=== PATIENT | female | born 1970 | race African-American/Black ===

== ENCOUNTER 2016-09-05 11:45 | Emergency (ER) | payer SELFPAY ==
[2016-09-05] MEDS ORDERED: IBUPROFEN 800 MG TABLET PO ONE (12:52)
--- NOTE | 2016-09-05 12:53 | ER Document Report ---
ED Medical Screen (RME) - General Stated Complaint: SKIN PROBLEM Time seen by provider: 12:49 Mode of Arrival: Ambulatory Information source: Patient Notes: 46-year-old female with a history of lupus is complaining of back and neck and leg pain for 1 week. She was seen in the emergency room recently and was told that she needed a blood transfusion. She is also complaining of rash. It'll stable in triage. I have greeted and performed a rapid initial assessment of this patient. A comprehensive ED assessment, evaluation of the patient, analysis of test results , and completion of the medical decision making process will be contacted by additional ED providers. TRAVEL OUTSIDE OF THE [place] IN LAST 30 DAYS: No - Related Data Allergies/Adverse Reactions: No Known Allergies Allergy (Verified 09/05/16 12:28) Past Medical History - Past Medical History Cardiac Medical History: Reports: Hx Hypertension Past Surgical History: Reports: Hx Section - Immunizations Immunizations up to date: No Hx Diphtheria, Pertussis, Tetanus Vaccination: Yes Physical Exam - Vital signs Vitals: Temp Pulse Resp BP Pulse Ox 98.4 F 80 16 146/82 H 99 09/05/16 11:49 09/05/16 11:49 09/05/16 11:49 09/05/16 11:49 09/05/16 11:49 Course - Vital Signs Vital signs: Temp Pulse Resp BP Pulse Ox 98.4 F 80 16 146/82 H 99 09/05/16 11:49 09/05/16 11:49 09/05/16 11:49 09/05/16 11:49 09/05/16 11:49
[2016-09-05 13:21] LABS: HEMOGLOBIN 9.5 g/dL (12.0-15.5); HGB HCT DIFFERENCE -2.5; MEAN CORPUSCULAR HEMOGLOBIN 20.5 pg (27.0-33.4); MEAN CORPUSCULAR HGB CONC 30.7 g/dL (32.0-36.0); MEAN CORPUSCULAR VOLUME 67 fl (80-97); RED BLOOD COUNT 4.66 10^6/uL (3.72-5.28); RED CELL DISTRIBUTION WIDTH 21.5 % (11.5-14.0); WHITE BLOOD COUNT 5.6 10^3/uL (4.0-10.5)
[2016-09-05 13:26] LABS: ALANINE AMINOTRANSFERASE 25 U/L (9-52); ALBUMIN 4.3 g/dL (3.5-5.0); ALKALINE PHOSPHATASE 69 U/L (38-126); ANION GAP 10 (5-19); ASPARTATE AMINO TRANSFERASE 20 U/L (14-36); BILIRUBIN,TOTAL 0.5 mg/dL (0.2-1.3); BLOOD UREA NITROGEN 10 mg/dL (7-20); CALCIUM 9.3 mg/dL (8.4-10.2); CARBON DIOXIDE 23 mmol/L (22-30); CHLORIDE 108 mmol/L (98-107); CREATININE RESULT 0.77 mg/dL (0.52-1.25); GLUCOSE 95 mg/dL (75-110); POTASSIUM 4.5 mmol/L (3.6-5.0); SODIUM 140.6 mmol/L (137-145); TOTAL PROTEIN 7.8 g/dL (6.3-8.2)
[2016-09-05 13:35] LABS: BAND NEUTROPHILS % (MANUAL) 1 % (3-5); BASOPHILS % (MANUAL) 0 % (0-2); EOSINOPHILS % (MANUAL) 2 % (0-6); LYMPHOCYTES % (MANUAL) 25 % (13-45); TOTAL CELLS COUNTED 100
[2016-09-05 13:37] LABS: HYPOCHROMASIA 1+; POLYCHROMASIA SLIGHT; TARGET CELLS SLIGHT
[2016-09-05 13:38] LABS: ANISOCYTOSIS 3+; POIKILOCYTOSIS SLIGHT
[2016-09-05 13:42] LABS: APPEARANCE,URINE SLIGHTLY-CLOUDY; BILIRUBIN,URINE NEGATIVE (NEGATIVE); GLUCOSE, URINE 50 mg/dL (NEGATIVE); KETONES,URINE NEGATIVE (NEGATIVE); LEUKOCYTE ESTERASE,URINE NEGATIVE (NEGATIVE); NITRITE,URINE NEGATIVE (NEGATIVE); PROTEIN,URINE 100 mg/dL (NEGATIVE); URINE SPECIFIC GRAVITY 1.021; UROBILINOGEN,URINE NEGATIVE mg/dL (<2.0)
--- NOTE | 2016-09-05 14:54 | ER Document Report ---
ED General - General Chief Complaint: Back Pain Stated Complaint: SKIN PROBLEM Time seen by provider: 14:48 Mode of Arrival: Ambulatory Information source: Patient Notes: 46-year-old female complains about a one-week history of bilateral low back pain rating down both legs. She reports history of lupus but is on no medication regularly for due to lack of insurance. The patient says that she is scattered dark colored rash over her arms legs and trunk for which she has been using triamcinolone 1% cream with good results but ran out of that. Family whether reports that she is intermittently had problems with her vision getting blurry the patient denies at this examiner. She denies fever, chills, nausea, vomiting, cough, shortness of breath, dysuria, chest pain, abdominal pain, or upper back pain. She denies vaginal bleeding or discharge. She reports being in normal state of health otherwise recently doesn't recall any specific injury to her back. Patient also reported to triage that she thought she was supposed to have a blood transfusion on her last admission but this was never completed and she presents with concern that she may need one now. Physical Exam: General: Alert, appears well. HEENT: Normocephalic. Atraumatic. PERRLA. Extraocular movements intact. Oropharynx clear. Neck: Supple. Non-tender. Good range of motion without discomfort Respiratory: No respiratory distress. Clear and equal breath sounds bilaterally. Cardiovascular: Regular rate and rhythm. Abdominal: Normal Inspection. Soft, non-tender. No distension. Normal Bowel Sounds. Back: Mildly tender in the lower lumbar region bilaterally and in the midline No deformity or step off. Extremities: Moves all four extremities. Upper extremities: Normal inspection. Non-tender. Normal color. Normal ROM. Normal temperature. Lower extremities: Normal inspection. Non-tender. No edema. Normal color. Normal ROM. Normal temperature. No pain with straight leg raise bilaterally Neurological: Speech clear mentation normal. Psychological: Normal affect. Normal Mood. Skin: Warm. Dry. Normal color. Scattered areas of darkish discoloration with scaling to abdomen and back which corresponded patient's complaint of rash that she says is improved with triamcinolone TRAVEL OUTSIDE OF THE [place] IN LAST 30 DAYS: No - Related Data Allergies/Adverse Reactions: No Known Allergies Allergy (Verified 09/05/16 12:28) Past Medical History - General Information source: Patient - Social History Smoking Status: Current Every Day Smoker Family History: Hypertension, Malignancy, Other - Lupus Patient has suicidal ideation: No Patient has homicidal ideation: No - Past Medical History Cardiac Medical History: Reports: Hx Hypertension Renal/ Medical History: Denies: Hx Peritoneal Dialysis Musculoskeltal Medical History: Reports Other - Lupus Past Surgical History: Reports: Hx Section - Immunizations Immunizations up to date: No Hx Diphtheria, Pertussis, Tetanus Vaccination: Yes Review of Systems - Review of Systems Constitutional: See HPI EENT: denies: Ear pain, Throat pain Cardiovascular: denies: Chest pain Respiratory: denies: Cough, Short of breath Gastrointestinal: denies: Abdominal pain, Nausea, Vomiting Genitourinary: See HPI Female Genitourinary: denies: Musculoskeletal: Back pain Skin: Rash Hematologic/Lymphatic: denies: Swollen glands Neurological/Psychological: denies: Weakness, Numbness Physical Exam - Vital signs Vitals: Temp Pulse Resp BP Pulse Ox 98.4 F 80 16 146/82 H 99 09/05/16 11:49 09/05/16 11:49 09/05/16 11:49 09/05/16 11:49 09/05/16 11:49 Course - Re-evaluation Re-evalutation: 09/05/16 14:52 Patient is reassured that her hemoglobin was slightly low is not low enough to warrant transfusion. I believe or back pain is due to UTI and she'll be treated with antibiotics for that. I'm unsure about the etiology of her rash but says it has responded triamcinolone 1% cream in the past we'll prescribe that. He reports she is not under any local care for lupus due to lack of insurance but states that she is working on that and will brighter with referral to community clinic in the interim - Vital Signs Vital signs: Temp Pulse Resp BP Pulse Ox 98.4 F 80 16 146/82 H 99 09/05/16 11:49 09/05/16 11:49 09/05/16 11:49 09/05/16 11:49 09/05/16 11:49 - Laboratory Result Diagrams: 09/05/16 12:59 09/05/16 12:59 Laboratory results interpreted by me: 09/05/16 09/05/16 09/05/16 12:59 12:59 12:59 Hgb 9.5 L Hct 31.0 L MCV 67 L MCH 20.5 L MCHC 30.7 L RDW 21.5 H Band Neutrophils % 1 L Chloride 108 H Urine Protein 100 H Urine Glucose (UA) 50 H Urine Blood LARGE H 09/05/16 14:53 Discharge - Discharge Clinical Impression: UTI (urinary tract infection) Qualifiers: Urinary tract infection type: site unspecified Hematuria presence: with hematuria Qualified Code(s): N39.0 - Urinary tract infection, site not specified Lupus Qualifiers: Systemic lupus erythematosus type: unspecified Systemic lupus erythematosus organ involvement: unspecified Qualified Code(s): M32.9 - Systemic lupus erythematosus, unspecified Condition: Stable Disposition: HOME, SELF-CARE Instructions: Urinary Tract Infection ([facility]) Prescriptions: Cephalexin Monohydrate [Keflex 500 mg Capsule] 500 mg PO BID #20 capsule Tramadol HCl 50 mg PO BID #10 tablet Triamcinolone Acetonide 15 gm TP DAILY #1 cream.gm. Referrals: EVA SANCHEZ MD [[facility]] - Follow up as needed
[2016-09-05 15:10] VITALS: BP 142/78
== END 2016-09-05 15:07 | disposition home or self-care (01) ==
LOC: ER 11:45
DX: N39.0 Urinary tract infection, site not specified (principal); R31.9 Hematuria, unspecified; M32.9 Systemic lupus erythematosus, unspecified; M54.5 Low back pain; R21 Rash and other nonspecific skin eruption; D64.9 Anemia, unspecified; I10 Essential (primary) hypertension; F17.200 Nicotine dependence, unspecified, uncomplicated
CPT/HCPCS: 36415; 80053; 81001; 84703; 85025; 87086; 99283

== ENCOUNTER 2017-01-12 04:20 | Emergency (ER) | payer SELFPAY ==
[2017-01-12 04:32] VITALS: BP 141/82
--- NOTE | 2017-01-12 05:08 | ER Document Report ---
HPI - HPI Pain Level: 4 Notes: Patient is a 46yo female who presents with left ear pain x3 days. No tinnitus. Pt states that she did have discharge initially, but has not had any discharge in the last 1-2 days. She has tried triamcinolone cream with minimal relief. The pain radiates down into her left neck. Pt states that she hears an "echo" from that left side. She is still eating and drinking, but does have a dec appetite due to pain. Pt states that she did develop a mild LILLY bc of the pain. No recent swimming or submersion in water. Denies any fever, nasal samantha/ discharge, sore throat, dysphagia, cp, palp, syncope, cough, wheeze, sob, dyspnea, abd pain, n/v/d, dysuria. - ROS Notes: REVIEW OF SYSTEMS: CONSTITUTIONAL : Denies fever, chills, or sweats. Denies recent illness. EENT: see hpi CARDIOVASCULAR: Denies chest pain. Denies palpitations or racing or irregular heart beat. Denies ankle edema. RESPIRATORY: Denies cough, cold, or chest congestion. Denies shortness of breath, difficulty breathing, or wheezing. GASTROINTESTINAL: Denies abdominal pain or distention. Denies nausea, vomiting , or diarrhea. Denies blood in vomitus, stools, or per rectum. Denies black, tarry stools. Denies constipation. GENITOURINARY: Denies difficulty urinating, painful urination, burning, frequency, blood in urine, or discharge. FEMALE GENITOURINARY: Denies vaginal bleeding, heavy or abnormal periods, irregular periods. Denies vaginal discharge or odor. MUSCULOSKELETAL: Denies back or neck pain or stiffness. Denies joint pain or swelling. SKIN: Denies rash, lesions or sores. NEUROLOGICAL: Denies confusion or altered mental status. Denies passing out or loss of consciousness. Denies dizziness or lightheadedness. Denies weakness or paralysis or loss of use of either side. Denies problems with gait or speech. Denies sensory loss, numbness, or tingling. Denies seizures. ALL OTHER SYSTEMS REVIEWED AND NEGATIVE. Dictation was performed using [employer] voice recognition software - REPRODUCTIVE LMP: 12-10-16 Reproductive: DENIES: : - DERM Skin Color: Normal Past Medical History - Social History Smoking Status: Unknown if Ever Smoked Family History: Hypertension, Malignancy, Other - Lupus Patient has suicidal ideation: No Patient has homicidal ideation: No - Past Medical History Cardiac Medical History: Reports: Hx Hypertension Renal/ Medical History: Denies: Hx Peritoneal Dialysis Past Surgical History: Reports: Hx Section - Immunizations Immunizations up to date: No Hx Diphtheria, Pertussis, Tetanus Vaccination: Yes Vertical Provider Document - CONSTITUTIONAL Notes: PHYSICAL EXAMINATION: GENERAL: Well-appearing, well-nourished and in no acute distress. HEAD: Atraumatic, normocephalic. EYES: Pupils equal round and reactive to light, extraocular movements intact, sclera anicteric, conjunctiva are normal. ENT: EAC swollen to left with mild erythema, + tenderness. TM not visualized. Rt EAC/TM unremarkable. Nares patent and without discharge. oropharynx clear without exudates. No tonsilar hypertrophy or erythema. Moist mucous membranes. No sinus tenderness. NECK: Normal range of motion, supple without lymphadenopathy. No rigidity/ meningismus. LUNGS: Breath sounds clear to auscultation bilaterally and equal. No wheezes rales or rhonchi. HEART: Regular rate and rhythm without murmurs, rubs, gallops. Extremities: No cyanosis, clubbing, or edema b/l. Peripheral pulses 2+. Capillary refill less than 3 seconds. NEUROLOGICAL: Cranial nerves grossly intact. Normal speech, normal gait. Normal sensory, motor exams PSYCH: Normal mood, normal affect. SKIN: Warm, Dry, normal turgor. + mild dry maculopapular rash to the neck ( reported chronic issue per patient). Non-tender, no d/c or streaks. - INFECTION CONTROL TRAVEL OUTSIDE OF THE [place] IN LAST 30 DAYS: No - RESPIRATORY O2 Sat by Pulse Oximetry: 99 Course - Re-evaluation Re-evalutation: 01/12/17 05:11 Patient is an afebrile, well-hydrated, 46yo female who presents with left EAC OE. Ciprodex drops with wick placement performed today. Toradol 30mg given IM today for pain. Vitals stable. PE otherwise unremarkable. Pt noted improvement in her pain and headache with the toradol and ciprodex. Conservative measures otherwise. Recheck with PCM in 2-3 days. Consider consult with ENT as well. Return to the ED with any worsening symptoms. Pt in agreement. I will refill her triamcinolone cream for her rash (was last filled by provider here in the ED). - Vital Signs Vital signs: Temp Pulse Resp BP Pulse Ox 98.5 F 89 18 141/82 H 99 01/12/17 04:28 01/12/17 04:28 01/12/17 04:28 01/12/17 04:28 01/12/17 04:28 Discharge - Discharge Clinical Impression: Otitis externa Qualifiers: Otitis externa type: unspecified type Chronicity: acute Laterality: left Qualified Code(s): H60.502 - Unspecified acute noninfective otitis externa, left ear Condition: Stable Disposition: HOME, SELF-CARE Instructions: Acetaminophen, Using Ear Drops with a Wick ([facility]), Otitis Externa ([facility]) Additional Instructions: Use drops as directed Keep ears clean Tylenol/ibuprofen as needed for discomfort Maintain fluid intake Avoid use of q-tips inside the ear canal Recheck with PCM in 2-3 days Consider consult with ENT for ongoing/worsening symptoms as well Return to the ED with development of fever, worsening headache, chest pain, shortness of breath, abdominal pain, or other worsening symptom(s). Otitis Externa You have otitis externa -- an infection of the outer ear canal. This can be very painful. It's sometimes called "swimmer's ear," because it often occurs after prolonged water exposure. Many things, such as earwax and dirt in the ear, can contribute to it. The usual treatment is antibiotic/antiinflammatory ear drops. Occasionally , a wick will be placed in the ear to draw in the medicine. If the infection is severe, an oral antibiotic may be prescribed. Pain medication is often needed. Avoid getting water in the ear. Outer ear infections often take longer to heal than you might expect. Some tenderness and ache in the ear may persist for about two weeks. See your physician if you fail to improve as expected. Call the doctor at once if you develop fever, increasing swelling (particularly if it makes your ear "poke out"), severe headache, stiff neck, or decreased hearing. Prescriptions: Triamcinolone Acetonide 15 gm TP BID PRN #15 cream.gm. PRN Reason: Forms: Elevated Blood Pressure
[2017-01-12] MEDS ORDERED: KETOROLAC TROMETHAMINE INJ/PF 30 MG/1 ML SDV IM ONE (05:14)
[2017-01-12] MEDS ORDERED: CIPROFLOXACIN HCL/DEXAMETH OTIC DROP 7.5 ML AS ONE (05:17)
== END 2017-01-12 06:04 | disposition home or self-care (01) ==
LOC: ER 04:20
DX: H60.502 Unspecified acute noninfective otitis externa, left ear (principal); H92.02 Otalgia, left ear; R21 Rash and other nonspecific skin eruption; R63.0 Anorexia; R51 Headache; I10 Essential (primary) hypertension
CPT/HCPCS: 99282; 96372; J1885; J3490

== ENCOUNTER 2017-02-05 14:08 | Emergency (ER) | payer SELFPAY ==
[2017-02-05] MEDS ORDERED: KETOROLAC TROMETHAMINE 60 MG/2 ML SDV IM ONE (14:45)
[2017-02-05] MEDS ORDERED: DEXAMETHASONE SOD PHOS INJ 10 MG/1 ML VIAL IV ONE (14:45)
--- NOTE | 2017-02-05 14:50 | ER Document Report ---
HPI - HPI Patient complains to provider of: rash and back pain Pain Level: 4 Context: 46 yo female with hx/o Lupus, c/o burning pruritic rash to face x 1 day and low back pain x 2 days. denies new contacts. denies urinary symptoms, fever, radiculopathy, paresthesia. Associated Symptoms: None Exacerbated by: Denies Relieved by: Denies Similar symptoms previously: No - ROS Systems Reviewed and Negative: Yes All other systems reviewed and negative - CARDIOVASCULAR Cardiovascular: DENIES: Chest pain - REPRODUCTIVE Reproductive: DENIES: : - DERM Skin Color: Normal Past Medical History - General Information source: Patient - Social History Smoking Status: Current Every Day Smoker Chew tobacco use (# tins/day): No Frequency of alcohol use: None Drug Abuse: None Lives with: Family Family History: Hypertension, Malignancy, Other - Lupus Patient has suicidal ideation: No Patient has homicidal ideation: No - Past Medical History Cardiac Medical History: Reports: Hx Hypertension Renal/ Medical History: Denies: Hx Peritoneal Dialysis Past Surgical History: Reports: Hx Section - Immunizations Immunizations up to date: No Hx Diphtheria, Pertussis, Tetanus Vaccination: Yes Vertical Provider Document - CONSTITUTIONAL Agree With Documented VS: Yes Exam Limitations: No Limitations General Appearance: WD/WN, No Apparent Distress - INFECTION CONTROL TRAVEL OUTSIDE OF THE [place] IN LAST 30 DAYS: No - HEENT HEENT: Atraumatic, PERRLA Notes: no visible facial rash, but patient says it [place]. - NECK Neck: Normal Inspection, Supple - RESPIRATORY Respiratory: Breath Sounds Normal O2 Sat by Pulse Oximetry: 100 - CARDIOVASCULAR Cardiovascular: Regular Rate, Regular Rhythm - BACK Back: Abnormal Inspection - no vertebral tenderness. + lumbar paraspinal tenderness. no SI pain Course - Re-evaluation Re-evalutation: 02/05/17 15:08 unclear etiolgy of facial burning and rash. I do not appreciate an actual rash on patient's face. no angioedema, no airway compromise. her back pain is c/w myofascial pain. no suspicion for cauda equina or epidural abscess. pt medicated with toradol + decadron for symptom relief. pt is stable for discharge and follow up with primary care. pt is agreeable with plan - Vital Signs Vital signs: Temp Pulse Resp BP Pulse Ox 98.0 F 83 18 162/79 H 100 02/05/17 14:13 07/16/17 14:13 02/05/17 14:13 02/05/17 14:13 02/05/17 14:13 Discharge - Discharge Condition: Stable Disposition: HOME, SELF-CARE Instructions: Low Back Pain ([facility]), Toradol Injection ([facility]), Topical Steroid Cream or Ointment ([facility]), Steroid Medication Injection Additional Instructions: Unclear etiology of your facial rash. You may take over the counter Benadryl for itch Take medications as prescribed. Remember to use steroid cream sparingly and for no more than 7 consecutive days follow up with primary care if symptoms persist return to ER for any worsening Prescriptions: Triamcinolone Acetonide [Aristocort 0.1% Ointment] 1 applic TP BID #30 gm Forms: Elevated Blood Pressure
[2017-02-05 15:45] VITALS: BP 155/72
== END 2017-02-05 15:43 | disposition home or self-care (01) ==
LOC: ER 14:08
DX: R21 Rash and other nonspecific skin eruption (principal); M54.9 Dorsalgia, unspecified; F17.200 Nicotine dependence, unspecified, uncomplicated
CPT/HCPCS: 99283; 96372; 96374; J1885; J1100

== ENCOUNTER 2017-09-01 07:06 | Emergency (ER) | payer SELFPAY ==
[2017-09-01] MEDS ORDERED: ACETAMINOPHEN 325 MG TABLET PO ONE (08:30)
--- NOTE | 2017-09-01 08:32 | ER Document Report ---
ED Medical Screen (RME) - General Chief Complaint: Foot Injury Stated Complaint: FOOT INJURY Time Seen by Provider: 09/01/17 08:29 Notes: Patient is a 47-year-old female presents emergency department with a chief complaint of left foot wound. Patient states that she dropped ashtray on it about a month ago and had a small superficial laceration that is just progressed now involving the whole top of her foot with pain with walking. She admits to history of diabetes, hypertension, anemia I have greeted and performed a rapid initial assessment of this patient. A comprehensive ED assessment and evaluation of the patient, analysis of test results and completion of the medical decision making process will be conducted by additional ED providers. TRAVEL OUTSIDE OF THE [place] IN LAST 30 DAYS: No - Related Data Allergies/Adverse Reactions: No Known Allergies Allergy (Verified 02/05/17 14:12) Past Medical History - Past Medical History Cardiac Medical History: Reports: Hx Hypertension Renal/ Medical History: Denies: Hx Peritoneal Dialysis Past Surgical History: Reports: Hx Section - Immunizations Immunizations up to date: No Hx Diphtheria, Pertussis, Tetanus Vaccination: Yes Physical Exam - Vital signs Vitals: Temp Pulse Resp BP Pulse Ox 99 F 85 18 120/69 100 09/01/17 07:18 09/01/17 07:18 09/01/17 07:18 09/01/17 07:18 09/01/17 07:18 - Notes Notes: PHYSICAL EXAM GENERAL: Alert, interacts well. EXTREMITIES: Left foot volar surface with overlying abraision with drainage and pain to palpation of the dorsal surface of the foot. Pain with weight bearing. No cyanosis. NEUROLOGICAL: Alert and oriented x4. Normal speech. PSYCH: Normal affect, normal mood. Course - Vital Signs Vital signs: Temp Pulse Resp BP Pulse Ox 99 F 85 18 120/69 100 09/01/17 07:18 09/01/17 07:18 09/01/17 07:18 09/01/17 07:18 09/01/17 07:18
[2017-09-01 08:49] LABS: ABSOLUTE EOSINOPHILS # (AUTO) 0.1 10^3/uL (0.0-0.6); ABSOLUTE LYMPHOCYTES (AUTO) 2.2 10^3/uL (0.5-4.7); ABSOLUTE MONOCYTES (AUTO) 0.8 10^3/uL (0.1-1.4); ABSOLUTE NEUT (AUTO) 4.5 10^3/uL (1.7-8.2); BASOPHILS % (AUTO) 0.6 % (0-2); EOSINOPHILS % (AUTO) 1.5 % (0-6); HEMATOCRIT 32.9 % (36.0-47.0); HEMOGLOBIN 10.4 g/dL (12.0-15.5); LYMPHOCYTES % (AUTO) 29.4 % (13-45); MEAN CORPUSCULAR HEMOGLOBIN 23.1 pg (27.0-33.4); MEAN CORPUSCULAR HGB CONC 31.7 g/dL (32.0-36.0); MEAN CORPUSCULAR VOLUME 73 fl (80-97); MONOCYTES % (AUTO) 9.9 % (3-13); PLATELET COUNT 383 10^3/uL (150-450); RED BLOOD COUNT 4.51 10^6/uL (3.72-5.28); RED CELL DISTRIBUTION WIDTH 20.4 % (11.5-14.0); SEGMENTED NEUTROPHILS % (AUTO) 58.6 % (42-78); TOTAL CELLS COUNTED % (AUTO) 100 %; WHITE BLOOD COUNT 7.6 10^3/uL (4.0-10.5)
[2017-09-01 09:14] LABS: ANION GAP 8 (5-19); BLOOD UREA NITROGEN 9 mg/dL (7-20); CALCIUM 9.2 mg/dL (8.4-10.2); CARBON DIOXIDE 25 mmol/L (22-30); CHLORIDE 107 mmol/L (98-107); GLUCOSE 103 mg/dL (75-110); POTASSIUM 4.4 mmol/L (3.6-5.0); SODIUM 139.9 mmol/L (137-145)
--- NOTE | 2017-09-01 09:20 | RADIOLOGY REPORT (SQ) ---
EXAM DESCRIPTION: FOOT LEFT COMPLETE COMPLETED DATE/TIME: 09/01/2017 8:59 am REASON FOR STUDY: open wound x1 mth w/ pain swelling, r/o osteo COMPARISON: None. NUMBER OF VIEWS: Three views. TECHNIQUE: AP, lateral and oblique radiographic images acquired of the left foot. LIMITATIONS: None. FINDINGS: MINERALIZATION: Normal. BONES: No acute fracture or dislocation. No worrisome bone lesions. No periostitis or aggressive jarek ny demineralization worrisome for osteomyelitis at the 1st metatarsal or great toe proximal phalanx. JOINTS: No effusions. SOFT TISSUES: Medial left 1st metatarsophalangeal joint region soft tissue swelling. No foreign body . OTHER: No other significant finding. IMPRESSION: Soft tissue swelling at the 1st metatarsophalangeal joint region without underlying bony changes to suggest osteomyelitis or septic arthritis TECHNICAL DOCUMENTATION: JOB ID: [id number] [employer]- All Rights Reserved
[2017-09-01] MEDS ORDERED: CEPHALEXIN 500 MG CAPSULE PO ONE (10:01)
[2017-09-01] MEDS ORDERED: TRAMADOL HCL 50 MG TABLET PO ONE (10:01)
[2017-09-01] MEDS ORDERED: SULFAMETHOXAZOLE/TRIMETHOPRIM 800-160 MG TABLET PO ONE ×2 (10:01→10:03)
--- NOTE | 2017-09-01 10:04 | ER Document Report ---
HPI - HPI Pain Level: 5 Context: Patient is a 47-year-old female presents emergency department with a chief complaint of left foot wound. Patient states that she dropped ashtray on it about a month ago and had a small superficial laceration that is just progressed now involving the top of her foot with pain with walking. She admits to history of diabetes, hypertension, anemia. No primary care - REPRODUCTIVE Reproductive: DENIES: : - DERM Skin Color: Erythema Past Medical History - Social History Smoking Status: Current Every Day Smoker Chew tobacco use (# tins/day): No Frequency of alcohol use: None Drug Abuse: None Family History: Hypertension, Malignancy, Other - Lupus Patient has suicidal ideation: No Patient has homicidal ideation: No - Past Medical History Cardiac Medical History: Reports: Hx Hypertension Renal/ Medical History: Denies: Hx Peritoneal Dialysis Past Surgical History: Reports: Hx Section - Immunizations Immunizations up to date: No Hx Diphtheria, Pertussis, Tetanus Vaccination: Yes Vertical Provider Document - CONSTITUTIONAL Agree With Documented VS: Yes Notes: PHYSICAL EXAM GENERAL: Alert, interacts well. LUNGS: Clear to auscultation bilaterally, no wheezes, rales, or rhonchi. No respiratory distress. HEART: Regular rate and rhythm. No murmurs, gallops, or rubs. EXTREMITIES: Moves all 4 extremities spontaneously. No edema, radial and dorsalis pedis pulses 2/4 bilaterally. No cyanosis. NEUROLOGICAL: Alert and oriented x4. Normal speech. PSYCH: Normal affect, normal mood. SKIN: Warm, dry, normal turgor. Skin breakdown noted on the top of the left foot without any purulent drainage, fluctuance or induration, swelling, edema, streaking. - INFECTION CONTROL TRAVEL OUTSIDE OF THE [place] IN LAST 30 DAYS: No - RESPIRATORY O2 Sat by Pulse Oximetry: 100 Course - Re-evaluation Re-evalutation: 09/01/17 09:59 Patient is a 47-year-old female who is hemodynamically stable, no acute distress and afebrile. CBC without evidence of leukocytosis or anemia requiring products. No evidence of electrolyte abnormalities, acute renal failure. X-ray with evidence of soft tissue swelling without evidence of osteomyelitis. No evidence of a septic joint, gout flare, dislocation, or fracture on exam and imaging. At this time I do not see any need to admit the patient for IV antibiotics or surgical evaluation given that there is no evidence of underlying osteomyelitis or cellulitis indicating sepsis. Patient will be discharged home on antibiotics and minimal pain medication with instruction to follow-up with the wound clinic and primary care. Patient and are agreeable with plan and stable for discharge home. - Vital Signs Vital signs: Temp Pulse Resp BP Pulse Ox 99 F 85 18 120/69 100 09/01/17 07:18 09/01/17 07:18 09/01/17 07:18 09/01/17 07:18 09/01/17 07:18 - Laboratory Result Diagrams: 09/01/17 08:35 09/01/17 08:35 Laboratory results interpreted by me: 09/01/17 08:35 Hgb 10.4 L Hct 32.9 L MCV 73 L MCH 23.1 L MCHC 31.7 L RDW 20.4 H - Diagnostic Test Radiology reviewed: Image reviewed, Reports reviewed Discharge - Discharge Clinical Impression: Cellulitis Qualifiers: Site of cellulitis: extremity Site of cellulitis of extremity: lower extremity Laterality: left Qualified Code(s): L03.116 - Cellulitis of left lower limb Condition: Good Disposition: HOME, SELF-CARE Additional Instructions: Please be sure to follow-up with Department of Social Security today to establish a Medicaid. Please follow-up with the wound clinic next week. Please return to the emergency department with any worsening redness, swelling, streaking up the leg, fevers/chills or any symptoms that are worrisome to you. CELLULITIS: You have an infection of your skin and underlying soft tissues called cellulitis. This is due to bacteria, which can enter through any break in the skin, or even through an irritated hair follicle. Untreated, cellulitis will usually worsen. Antibiotics are required. Usually, warm packs or warm soaks, and elevation of the infected area are recommended. You should start getting better within 24 to 36 hours. Most infections respond quickly to the right medication. Follow-up care is important, however, to check for abscess (boil) formation, unsuspected foreign body, or resistant infection. If you develop fever, chills, or if the area of infection is becoming rapidly more swollen or painful, call the doctor at once. ANTIBIOTIC THERAPY: You have been given an antibiotic prescription. It's important that you take all the medication, unless instructed otherwise by your physician. Failure to complete the entire course can result in relapse of your condition. Common side effects of antibiotics include nausea, intestinal cramping, or diarrhea. Women may develop vaginal yeast infections, and babies can get yeast (thrush) in the mouth following the use of antibiotics. Contact your physician if you develop significant side effects from this medication. Allergy to this antibiotic can result in hives, wheezing, faintness, or itching. If symptoms of allergy occur, stop the medication and call the doctor. TRIMETHOPRIM-SULFA: You have been given a prescription for trimethoprim-sulfa (TMS, Septra, Bactrim). This is a combination antibiotic of the sulfa class, often used for urinary tract infections, middle ear infections, bronchitis, shigella intestinal infection, and Pneumocystis pneumonia. TMS is usually well-tolerated. Occasional side effects include nausea and decreased appetite. Septra is not recommended for infants less than two months of age. Do not take this medication if you have experienced severe side effects or allergy to sulfa medicine. You should stop this medicine at once and contact your physician if you develop any rash, joint pain, shortness of breath, bruising, or jaundice ( yellow color in the skin), or if you develop any other new or unusual symptoms. ORAL NARCOTIC MEDICATION: You have been given a prescription for pain control. This medication is a narcotic. It's best taken with food, as nausea can result if taken on an empty stomach. Don't operate machinery or drive within six hours of taking this medication. Do not combine this medicine with alcohol, or with any medication which can cause sedation (such as cold tablets or sleeping pills) unless you get permission from the physician. Narcotics tend to cause constipation. If possible, drink plenty of fluids and eat a diet high in fiber and fruits. Please be aware that prescription narcotics also have the potential for abuse. People become addicted to these medications because of the general sense of wellbeing that they induce. This feeling along with a significant reduction in tension, anxiety, and aggression provides a stimulating seductive quality to these drugs. Once your pain is under control, we encourage you to discard your unused narcotics. FOLLOW-UP CARE: If you have been referred to a physician for follow-up care, call the physician s office for an appointment as you were instructed or within the next two days. If you experience worsening or a significant change in your symptoms, notify the physician immediately or return to the Emergency Department at any time for re-evaluation. Prescriptions: Tramadol HCl 50 mg PO Q8HP PRN #10 tablet PRN Reason: Cephalexin Monohydrate [Keflex 500 mg Capsule] 500 mg PO QID 7 Days capsule Sulfamethoxazole/Trimethoprim [Bactrim Ds Tablet] 2 each PO BID 7 Days tablet Referrals: Wound Care [Provider Group] - Follow up in 3-5 days KEN HOLGUIN DO [NO LOCAL MD] - Follow up in 3-5 days
[2017-09-01 10:22] VITALS: BP 115/71
== END 2017-09-01 10:23 | disposition home or self-care (01) ==
LOC: ER 07:06
DX: L03.116 Cellulitis of left lower limb (principal); S91.312A Laceration without foreign body, left foot, initial encounter; M79.672 Pain in left foot; W22.8XXA Striking against or struck by other objects, initial encounter; F17.200 Nicotine dependence, unspecified, uncomplicated
CPT/HCPCS: 36415; 80048; 82962; 85025; 99284

== ENCOUNTER 2017-09-04 16:11 | Emergency (ER) | payer SELFPAY | END 2017-09-04 16:50 | disposition left against medical advice (07) | LOC: ER 16:11 | DX: Z53.21 Procedure and treatment not carried out due to patient leaving prior to being seen by health care provider (principal) ==

== ENCOUNTER 2017-11-27 05:42 | Day surgery (SDC) | payer MEDICAID ==
[2017-11-21 10:54] LABS: HEMATOCRIT 33.1 % (36.0-47.0); HEMOGLOBIN 10.5 g/dL (12.0-15.5); MEAN CORPUSCULAR HEMOGLOBIN 23.3 pg (27.0-33.4); MEAN CORPUSCULAR HGB CONC 31.8 g/dL (32.0-36.0); MEAN CORPUSCULAR VOLUME 73 fl (80-97); PLATELET COUNT 419 10^3/uL (150-450); RED BLOOD COUNT 4.52 10^6/uL (3.72-5.28); RED CELL DISTRIBUTION WIDTH 20.7 % (11.5-14.0); WHITE BLOOD COUNT 7.6 10^3/uL (4.0-10.5)
[2017-11-21 10:59] LABS: AMORPHOUS SEDIMENT,URINE TRACE /HPF; APPEARANCE,URINE CLOUDY; BILIRUBIN,URINE NEGATIVE (NEGATIVE); COLOR,URINE YELLOW; GLUCOSE, URINE NEGATIVE (NEGATIVE); KETONES,URINE NEGATIVE (NEGATIVE); LEUKOCYTE ESTERASE,URINE MODERATE (NEGATIVE); NITRITE,URINE NEGATIVE (NEGATIVE); PROTEIN,URINE 30 mg/dL (NEGATIVE); URINE SPECIFIC GRAVITY 1.017; UROBILINOGEN,URINE NEGATIVE mg/dL (<2.0)
[2017-11-27] MEDS ORDERED: LIDOCAINE 2% INJ-PF (20 MG/ML) 10 ML AMPUL ONE (08:25)
[2017-11-27] MEDS ORDERED: FENTANYL CITRATE INJ/PF 100 MCG/2 ML AMPUL ONE (08:25)
[2017-11-27] MEDS ORDERED: ACETAMINOPHEN 100 ML IV ONE (08:26)
[2017-11-27] MEDS ORDERED: DEXAMETHASONE SOD PHOSPHATE INJ 4 MG/1 ML VIAL ONE (08:26)
[2017-11-27] MEDS ORDERED: ONDANSETRON HCL INJ/PF 4 MG/2 ML SDV ONE (08:26)
[2017-11-27] MEDS ORDERED: MIDAZOLAM 2 MG/2 ML INJ ONE (08:26)
[2017-11-27] MEDS ORDERED: PROPOFOL INJ 200 MG/20 ML VIAL IV ONE (08:26)
[2017-11-27] MEDS ORDERED: PROMETHAZINE HCL INJ 25 MG/1 ML VIAL IV PRN ×2 (09:10)
[2017-11-27] MEDS ORDERED: MORPHINE SULFATE 10 MG/ML INJ IV PRN (09:10)
[2017-11-27] MEDS ORDERED: MEPERIDINE HCL/PF INJ 25 MG/1 ML DISP.SYRIN IV PRN (09:10)
[2017-11-27] MEDS ORDERED: OXYCODONE-ACETAMINOPHEN 5-325 MG TABLET PO PRN ×4 (09:10→09:57)
[2017-11-27] MEDS ORDERED: FENTANYL CITRATE INJ/PF 100 MCG/2 ML AMPUL IV PRN ×3 (09:10)
[2017-11-27] MEDS ORDERED: DIPHENHYDRAMINE HCL 50 MG/ML VIAL IV PRN (09:10)
[2017-11-27] MEDS ORDERED: ONDANSETRON HCL INJ/PF 4 MG/2 ML SDV IV PRN (09:10)
--- NOTE | 2017-11-27 09:31 | Operative Report ---
Operative Report DATE OF SURGERY: 11/27/17 PREOPERATIVE DIAGNOSIS: Prolapsing uterine fibroid, heavy periods POSTOPERATIVE DIAGNOSIS: Same OPERATION: Myomectomy hysteroscopy Myosure, Novasure. SURGEON: MATILDE YOUSIF ANESTHESIA: GA TISSUE REMOVED OR ALTERED: Uterine contents COMPLICATIONS: None ESTIMATED BLOOD LOSS: 20 cc INTRAOPERATIVE FINDINGS: Fibroid prolapsing through the uterine cervix with a large stalk in the uterine cavity PROCEDURE: Patient was taken the OR and placed in supine position. General anesthesia was induced. She is placed in dorsolithotomy position using Nathaniel stirrups. Her perineum and vagina were prepared and draped in sterile fashion. A weighted speculum was placed in the vagina and the anterior lip cervix was grasped with a tenaculum. The fibroid could be seen prolapsing at the uterus. The stalk appeared thin so the fibroid was removed by grasping and twisting it. This was passed off the field. Next hysteroscopy was performed which showed the stalk of the fibroid attached into the fundus of the uterus. Otherwise the uterine cavity looked quite normal and measured 4-1/2 cm in length. The Myosure was then used to remove the remainder of the stalk. The NovaSure device was then inserted tested and fired without difficulty. Hysteroscopy at the end of the case showed a well ablated uterine cavity. At the end of the case all instruments were removed. She is placed back in supine position taken recovery in stable condition.
[2017-11-27] MEDS: FENTANYL CITRATE INJ/PF 100 MCG/2 ML AMPUL ONE ×2 (09:45→09:50)
[2017-11-27] MEDS ORDERED: RINGERS SOLUTION,LACTATED 1,000 ML IV PRN (09:53)
[2017-11-27] MEDS ORDERED: KETOROLAC TROMETHAMINE INJ/PF 30 MG/1 ML SDV IV PRN (09:54)
[2017-11-27] MEDS ORDERED: IBUPROFEN 800 MG TABLET PO PRN (09:55)
[2017-11-27] MEDS ORDERED: KETOROLAC TROMETHAMINE INJ/PF 30 MG/1 ML SDV ONE (10:01)
[2017-11-27 12:36] VITALS: BP 135/70
== END 2017-11-27 11:45 | disposition home or self-care (01) ==
LOC: OROUT 05:42
PROVIDERS: ATTEND Obstetrics & Gynecology
DX: N92.0 Excessive and frequent menstruation with regular cycle (principal); N81.9 Female genital prolapse, unspecified; D25.9 Leiomyoma of uterus, unspecified; I10 Essential (primary) hypertension; M32.9 Systemic lupus erythematosus, unspecified
CPT/HCPCS: 36415; 85027; 81025; 81001; 88305 ×2; 58563; 58561; J2250; J1100; J3010; J1885; J2405; J2704; J3490; J0131; 952

== ENCOUNTER → 2017-12-06 | Outpatient (CLI) | payer MEDICAID ==
[2017-12-06 13:18] LABS: HEMATOCRIT 29.8 % (36.0-47.0); HEMOGLOBIN 9.3 g/dL (12.0-15.5); MEAN CORPUSCULAR HEMOGLOBIN 22.7 pg (27.0-33.4); MEAN CORPUSCULAR HGB CONC 31.4 g/dL (32.0-36.0); MEAN CORPUSCULAR VOLUME 72 fl (80-97); PLATELET COUNT 329 10^3/uL (150-450); RED BLOOD COUNT 4.12 10^6/uL (3.72-5.28); RED CELL DISTRIBUTION WIDTH 20.1 % (11.5-14.0); WHITE BLOOD COUNT 8.5 10^3/uL (4.0-10.5)
[2017-12-06 13:22] LABS: APPEARANCE,URINE CLEAR; BILIRUBIN,URINE NEGATIVE (NEGATIVE); COLOR,URINE YELLOW; GLUCOSE, URINE NEGATIVE (NEGATIVE); KETONES,URINE NEGATIVE (NEGATIVE); LEUKOCYTE ESTERASE,URINE MODERATE (NEGATIVE); NITRITE,URINE NEGATIVE (NEGATIVE); PROTEIN,URINE 30 mg/dL (NEGATIVE); URINE SPECIFIC GRAVITY 1.017; UROBILINOGEN,URINE NEGATIVE mg/dL (<2.0)
--- NOTE | 2017-12-06 13:25 | RADIOLOGY REPORT (SQ) ---
EXAM DESCRIPTION: CHEST PA/LATERAL COMPLETED DATE/TIME: 12/06/2017 12:20 pm REASON FOR STUDY: COUGH VARIANT ASTHMA COMPARISON: 2016 CT chest and radiographs. TECHNIQUE: Frontal and lateral radiographic views of the chest acquired. NUMBER OF VIEWS: Two view. LIMITATIONS: None. FINDINGS: LUNGS AND PLEURA: No opacities, masses or pneumothorax. No pleural effusion. MEDIASTINUM AND HILAR STRUCTURES: No masses or contour abnormalities. HEART AND VASCULAR STRUCTURES: Heart normal size. No evidence for failure. BONES: No acute findings. HARDWARE: None in the chest. OTHER: No other significant finding. IMPRESSION: NO SIGNIFICANT RADIOGRAPHIC FINDING IN THE CHEST. TECHNICAL DOCUMENTATION: JOB ID: [id number] [employer]- All Rights Reserved Reading location - IP/workstation name: [email or web address]
[2017-12-06 13:42] LABS: ALANINE AMINOTRANSFERASE 19 U/L (9-52); ALBUMIN 3.4 g/dL (3.5-5.0); ALKALINE PHOSPHATASE 49 U/L (38-126); ANION GAP 9 (5-19); ASPARTATE AMINO TRANSFERASE 17 U/L (14-36); BILIRUBIN,DIRECT 0.2 mg/dL (0.0-0.4); BILIRUBIN,TOTAL 0.2 mg/dL (0.2-1.3); BLOOD UREA NITROGEN 9 mg/dL (7-20); CALCIUM 8.7 mg/dL (8.4-10.2); CARBON DIOXIDE 29 mmol/L (22-30); CHLORIDE 104 mmol/L (98-107); GLUCOSE 75 mg/dL (75-110); IRON(TIBC) 23.2 ug/dL (37-170); POTASSIUM 4.2 mmol/L (3.6-5.0); SODIUM 141.5 mmol/L (137-145); TOTAL PROTEIN 6.2 g/dL (6.3-8.2)
[2017-12-06 13:47] LABS: UR PRO/CREAT RATIO RESULT 0.2 mg/mg (0.0-0.2); URINE CREATININE 77.4 mg/dL (15-278); URINE PROTEIN 12.6 mg/dL (<12)
[2017-12-06 14:19] LABS: FERRITIN 5.42 ng/mL (6.2-137.0)
[2017-12-08 16:40] LABS: A/G RATIO. 1.3 (0.7-1.7); ALBUMIN 3 3.4 g/dL (2.9-4.4); ALPHA-1-GLOBULIN 0.2 g/dL (0.0-0.4); BETA GLOBULIN 1.1 g/dL (0.7-1.3); GAMMA GLOBULINS 0.9 g/dL (0.4-1.8); IMMUNOGLOBULIN A 244 mg/dL (87-352); IMMUNOGLOBULIN G 845 mg/dL (700-1600); IMMUNOGLOBULIN M 44 mg/dL (26-217); MONOCLONAL-SPIKE Not Observed g/dL (Not Observed); PROTEIN TOTAL SERUM 6.2 g/dL (6.0-8.5)
== END ==
LOC: OD 11:38
PROVIDERS: ATTEND Internal Medicine Nephrology
DX: J45.991 Cough variant asthma (principal); D64.9 Anemia, unspecified; R80.9 Proteinuria, unspecified; R07.0 Pain in throat
CPT/HCPCS: 36415; 71046; 80053; 81001; 82570; 82728; 83540; 83550; 84156; 84443; 85027; 86060; 86320; 87070; 87880

== ENCOUNTER 2017-12-29 23:28 | Emergency (ER) | payer MEDICAID ==
[2017-12-30] MEDS ORDERED: HALOPERIDOL LACTATE INJ 5 MG/1 ML VIAL IV ONE (00:01)
[2017-12-30] MEDS ORDERED: NORMAL SALINE 1000 ML 1,000 ML IV ONE (00:28)
[2017-12-30] MEDS ORDERED: KETOROLAC TROMETHAMINE INJ/PF 30 MG/1 ML SDV IV ONE (00:30)
[2017-12-30] MEDS ORDERED: DEXAMETHASONE SOD PHOS INJ 10 MG/1 ML VIAL IV ONE (00:30)
--- NOTE | 2017-12-30 00:30 | ER Document Report ---
ED General - General Chief Complaint: Headache Stated Complaint: HEAD ACHE Time Seen by Provider: 12/30/17 00:00 Notes: Patient is a 47-year-old female with a past medical history of lupus and hypertension who presents with a headache for the past 2 days. She describes this as a bitemporal, throbbing, aching pain that has gotten progressively worse since onset. She notes that lights, sounds activity worsen the pain. She has not tried anything for improvement of the pain. She has a history of headaches but is uncertain about whether or not she has had a similar headache in the past. She notes associated nausea and vomiting. She also notes associated blurred vision. No focal weakness, numbness, or altered mental status. She has not seen her primary doctor regarding today's concerns. TRAVEL OUTSIDE OF THE [place] IN LAST 30 DAYS: No - Related Data Allergies/Adverse Reactions: No Known Allergies Allergy (Verified 11/21/17 09:12) Past Medical History - General Information source: Patient - Social History Smoking Status: Never Smoker Frequency of alcohol use: None Drug Abuse: None Lives with: Family Family History: Hypertension, Malignancy, Other - Lupus - Past Medical History Cardiac Medical History: Reports: Hx Hypertension Denies: Hx Coronary Artery Disease, Hx Heart Attack Pulmonary Medical History: Denies: Hx Asthma, Hx Bronchitis, Hx COPD, Hx Pneumonia Neurological Medical History: Denies: Hx Cerebrovascular Accident, Hx Seizures Renal/ Medical History: Denies: Hx Peritoneal Dialysis Musculoskeltal Medical History: Denies Hx Arthritis Past Surgical History: Reports: Hx Section - Immunizations Immunizations up to date: No Hx Diphtheria, Pertussis, Tetanus Vaccination: Yes Review of Systems - Review of Systems Notes: Constitutional: Negative for fever. HENT: Negative for sore throat. Eyes: Negative for visual changes. Cardiovascular: Negative for chest pain. Respiratory: Negative for shortness of breath. Gastrointestinal: Negative for abdominal pain, positive for nausea and vomiting Genitourinary: Negative for dysuria. Musculoskeletal: Negative for back pain. Skin: Negative for rash. Neurological: Positive for headache 10 point ROS negative except as marked above and in HPI. Physical Exam - Vital signs Vitals: Temp Pulse Resp BP Pulse Ox 98.7 F 84 20 167/83 H 98 12/29/17 23:36 12/29/17 23:36 12/29/17 23:36 12/29/17 23:36 12/29/17 23:36 Interpretation: Hypertensive Notes: PHYSICAL EXAMINATION: GENERAL: Well-appearing, well-nourished and in no acute distress. HEAD: Atraumatic, normocephalic. EYES: Pupils equal round and reactive to light, extraocular movements intact, sclera anicteric, conjunctiva are normal. ENT: nares patent, oropharynx clear without exudates. Moist mucous membranes. NECK: Normal range of motion, supple without lymphadenopathy LUNGS: Breath sounds clear to auscultation bilaterally and equal. No wheezes rales or rhonchi. HEART: Regular rate and rhythm without murmurs ABDOMEN: Soft, nontender, normoactive bowel sounds. No guarding, no rebound. No masses appreciated. EXTREMITIES: Normal range of motion, no pitting or edema. No cyanosis. NEUROLOGICAL: Face symmetric. Tongue protrudes midline. Extraocular motions intact. Pupils are 2 mm and equally reactive. Normal speech, normal gait. 5 out of 5 strength in both the distal and proximal upper and lower extremities bilaterally. Sensation is grossly intact throughout. Finger to nose testing normal. Pronator drift normal. PSYCH: Normal mood, normal affect. SKIN: Warm, Dry, normal turgor, no rashes or lesions noted. Course - Re-evaluation Re-evalutation: 12/30/17 00:29 Presentation of a headache that appears to be most consistent with tension versus migrainous type headache. Headache was not maximal in onset, patient has no focal neurologic deficits, no nuchal rigidity, vital signs within normal limits, no papilledema, and patient is overall well in appearance. Based on clinical history and examination I do not suspect an acute subarachnoid hemorrhage, dural venous sinus thrombosis, acute meningitis, or intercranial mass. Given my low clinical suspicion for any acute life-threatening etiology, I do not feel advanced neuro imaging or laboratory testing is indicated at this time. The patient does have a history of lupus but has not had any seizure activity, no focal neurologic deficits, GCS 15 and I think the diagnosis of a lupus cerebritis is highly unlikely at this time point. Will proceed with headache cocktail and reassess. 12/30/17 01:30 Patient has had complete resolution of her headache and blurred vision. States he feels much improved. At this time will discharge with return precautions and follow-up recommendations. Verbal discharge instructions given a the bedside and opportunity for questions given. Medication warnings reviewed. Patient is in agreement with this plan and has verbalized understanding of return precautions and the need for primary care follow-up in the next 24-72 hours. - Vital Signs Vital signs: Temp Pulse Resp BP Pulse Ox 98.7 F 84 20 167/83 H 98 12/29/17 23:36 12/29/17 23:36 12/29/17 23:36 12/29/17 23:36 12/29/17 23:36 Discharge - Discharge Clinical Impression: Migraine headache Qualifiers: Migraine type: unspecified Status migrainosus presence: with status migrainosus Intractability: not intractable Qualified Code(s): G43.901 - Migraine, unspecified, not intractable, with status migrainosus Condition: Good Disposition: HOME, SELF-CARE Additional Instructions: You were seen today for a migraine headache. Please follow-up with your primary care doctor regarding today's ED visit. Return to emergency department immediately if you develop a headache that gets to its maximum severity within 20 minutes of onset, you pass out, you develop weakness, numbness, changes in your vision, become unable to keep any fluids down for more than 12 hours, or develop a fever greater than 100.4 degrees Fahrenheit. If you develop a similar migraine headache in the future I recommend that you immediately take 600 mg of ibuprofen and 50 mg of Benadryl and go to sleep as quickly as possible. This can often prevent your migraine headache from becoming severe.
[2017-12-30 01:53] VITALS: BP 131/87
== END 2017-12-30 01:53 | disposition home or self-care (01) ==
LOC: ER 23:28
DX: G43.901 Migraine, unspecified, not intractable, with status migrainosus (principal); I10 Essential (primary) hypertension
CPT/HCPCS: 99283; 96361; 96374; 96375; J1630; J1885; J7030; J1100

== ENCOUNTER → 2018-05-14 | Outpatient (CLI) | payer MEDICAID ==
[2018-05-14 14:57] LABS: HEMATOCRIT 40.6 % (36.0-47.0); HEMOGLOBIN 13.6 g/dL (12.0-15.5); MEAN CORPUSCULAR HGB CONC 33.4 g/dL (32.0-36.0); MEAN CORPUSCULAR VOLUME 90 fl (80-97); PLATELET COUNT 259 10^3/uL (150-450); RED BLOOD COUNT 4.53 10^6/uL (3.72-5.28); RED CELL DISTRIBUTION WIDTH 14.2 % (11.5-14.0); WHITE BLOOD COUNT 6.2 10^3/uL (4.0-10.5)
[2018-05-14 15:07] LABS: AMORPHOUS SEDIMENT,URINE 1+ /HPF; APPEARANCE,URINE CLOUDY; BILIRUBIN,URINE NEGATIVE (NEGATIVE); COLOR,URINE YELLOW; GLUCOSE, URINE NEGATIVE (NEGATIVE); KETONES,URINE NEGATIVE (NEGATIVE); LEUKOCYTE ESTERASE,URINE NEGATIVE (NEGATIVE); NITRITE,URINE NEGATIVE (NEGATIVE); PROTEIN,URINE 30 mg/dL (NEGATIVE); URINE SPECIFIC GRAVITY 1.016; UROBILINOGEN,URINE NEGATIVE mg/dL (<2.0)
[2018-05-14 15:16] LABS: ALANINE AMINOTRANSFERASE 25 U/L (9-52); ALBUMIN 3.9 g/dL (3.5-5.0); ALKALINE PHOSPHATASE 57 U/L (38-126); ANION GAP 6 (5-19); ASPARTATE AMINO TRANSFERASE 17 U/L (14-36); BILIRUBIN,DIRECT 0.2 mg/dL (0.0-0.4); BILIRUBIN,TOTAL 0.3 mg/dL (0.2-1.3); BLOOD UREA NITROGEN 12 mg/dL (7-20); CALCIUM 9.1 mg/dL (8.4-10.2); CARBON DIOXIDE 29 mmol/L (22-30); CHLORIDE 104 mmol/L (98-107); GLUCOSE 83 mg/dL (75-110); POTASSIUM 3.6 mmol/L (3.6-5.0); SODIUM 139.3 mmol/L (137-145); TOTAL PROTEIN 6.7 g/dL (6.3-8.2)
== END ==
LOC: OD 14:21
PROVIDERS: ATTEND Internal Medicine Nephrology
DX: R80.9 Proteinuria, unspecified (principal); D64.9 Anemia, unspecified
CPT/HCPCS: 36415; 80053; 81001; 85027

== ENCOUNTER 2019-01-25 12:17 | Emergency (ER) | payer MEDICAID | END 2019-01-25 12:25 | disposition left against medical advice (07) | LOC: ER 12:17 | DX: Z53.21 Procedure and treatment not carried out due to patient leaving prior to being seen by health care provider (principal) ==

== ENCOUNTER 2019-11-30 12:30 | Inpatient (IN) | payer MEDICAID ==
--- NOTE | 2019-11-30 13:06 | ER Document Report ---
ED General - General Chief Complaint: Abdominal Pain Stated Complaint: ABDOMINAL PAIN Time Seen by Provider: 11/30/19 12:40 Primary Care Provider: MYRON MAYORGA DO [Primary Care Provider] - Follow up as needed Mode of Arrival: Medic Information source: Patient TRAVEL OUTSIDE OF THE [place] IN LAST 30 DAYS: No - HPI Onset: Other - over the last 2 days Onset/Duration: Gradual Quality of pain: Achy, Pressure Severity: Severe Pain Level: 5 Associated symptoms: Fever Exacerbated by: Denies Relieved by: Denies Similar symptoms previously: No Recently seen / treated by doctor: Yes - patient was just admitted at [facility] for a stroke and DCed 2 days ago Notes: 49 year old female with a history of HTN, Lupus, and a recent stroke with right sided weakness and mild trouble speaking here in the ER for 2 days of abdominal pains and distention and 1 day of fevers. The patient was just discharged from [facility] after a month long stay fora Stroke. The patient has a Trach and a PEG but she is still able to take some food by mouth. Patient has a Reyes in place which was just changed 2 days ago. The patient says developed her symptoms shortly after being discharged from [facility] 2 days ago. - Related Data Allergies/Adverse Reactions: No Known Allergies Allergy (Verified 11/21/17 09:12) Past Medical History - General Information source: Patient - Social History Smoking Status: Never Smoker Frequency of alcohol use: None Drug Abuse: None Lives with: Family Family History: Hypertension, Malignancy, Other - Lupus Patient has homicidal ideation: No - Past Medical History Cardiac Medical History: Reports: Hx Hypertension Denies: Hx Coronary Artery Disease, Hx Heart Attack Pulmonary Medical History: Denies: Hx Asthma, Hx Bronchitis, Hx COPD, Hx Pneumonia Neurological Medical History: Denies: Hx Cerebrovascular Accident, Hx Seizures Renal/ Medical History: Denies: Hx Peritoneal Dialysis Musculoskeletal Medical History: Reports Hx Arthritis Past Surgical History: Reports: Hx Section - Immunizations Immunizations up to date: No Hx Diphtheria, Pertussis, Tetanus Vaccination: Yes Review of Systems - Review of Systems Constitutional: Fever EENT: No symptoms reported Cardiovascular: No symptoms reported Respiratory: No symptoms reported Gastrointestinal: Abdomen distended, Abdominal pain Genitourinary: No symptoms reported Female Genitourinary: No symptoms reported Musculoskeletal: No symptoms reported Skin: No symptoms reported Hematologic/Lymphatic: No symptoms reported Neurological/Psychological: No symptoms reported -: Yes All other systems reviewed and negative Physical Exam - Vital signs Vitals: Resp BP Pulse Ox 15 102/79 98 11/30/19 12:36 11/30/19 12:36 11/30/19 12:36 - Notes Notes: GENERAL: Chronically ill appearing, well-nourished and in no acute distress. HEAD: Atraumatic, normocephalic. EYES: Pupils equal round and reactive to light, extraocular movements intact, sc bel anicteric, conjunctiva are normal. ENT: External ears normal, nares patent, oropharynx clear without exudates. Moist mucous membranes. NECK: Trach present. Normal range of motion, supple without lymphadenopathy or JVD. LUNGS: Breath sounds clear to auscultation bilaterally and equal. No wheezes rales or rhonchi. HEART: Tachycardic, normal rhythm without murmurs, rubs or gallops. ABDOMEN: Soft, moderately distended diffusely, decreased bowel sounds. No guarding, no rebound. No masses appreciated. G tube present and has gastric contents in it. EXTREMITIES: Normal range of motion, no pitting or edema. No clubbing or cyanosis. NEUROLOGICAL: Right sided weakness from previous stroke. Drift with right upper extremity. Only mild weakness in right lower extremity. Dysarthria noted. Gait not tested. PSYCH: Normal mood, normal affect. SKIN: Warm, Dry, normal turgor, no rashes or lesions noted. Course - Re-evaluation Re-evalutation: 11/30/19 17:54 The patient is here for 2 days of abdominal pain, abdominal distension, decreased stool output. Patient also had a fever today prior to ER arrival (patient is afebrile here in the ER). CT shows an ileus but no obstruction. Patient just had her Reyes changed 2 days ago but her UA looks infectious. Patient also has AMARJIT based on labs. Patient treated with IV Fluids and Rocephin (Rocephin was given late in her ER stay due to not knowing the exact source of infection and waiting on the results of her CT abdomen/pelvis with oral contrast). - Vital Signs Vital signs: Temp Pulse Resp BP Pulse Ox 97.7 F 21 H 126/80 H 98 11/30/19 12:51 11/30/19 16:20 11/30/19 16:20 11/30/19 16:20 - Laboratory Result Diagrams: 11/30/19 12:44 11/30/19 12:44 Laboratory results interpreted by me: 11/30/19 11/30/19 11/30/19 12:44 12:44 12:44 RDW 14.1 H [place] % (Auto) 15.7 H BUN 47 H Creatinine 2.65 H Est GFR ( Amer) 23 L Est GFR (MDRD) Non-Af 19 L Glucose 128 H Urine Protein 100 H Urine Blood LARGE H Urine Bilirubin SMALL H Urine Urobilinogen 2.0 H Ur Leukocyte Esterase LARGE H - Diagnostic Test Radiology reviewed: Image reviewed, Reports reviewed - EKG Interpretation by Me EKG shows normal: Sinus rhythm, Gilbert, Intervals, QRS Complexes, ST-T Waves Rate: Tachycardia Rhythm: NSR Discharge - Discharge Clinical Impression: Ileus UTI (urinary tract infection) Qualifiers: Urinary tract infection type: site unspecified Hematuria presence: with hematuria Qualified Code(s): N39.0 - Urinary tract infection, site not specified; R31.9 - Hematuria, unspecified Abdominal pain Qualifiers: Abdominal location: generalized Qualified Code(s): R10.84 - Generalized abdominal pain Condition: Fair Disposition: ADMITTED INPATIENT Admitting Provider: Dilcia (Hospitalist) Referrals: MYRON MAYORGA DO [Primary Care Provider] - Follow up as needed
[2019-11-30 13:15] LABS: ABSOLUTE EOSINOPHILS # (AUTO) 0.1 10^3/uL (0.0-0.6); ABSOLUTE LYMPHOCYTES (AUTO) 1.3 10^3/uL (0.5-4.7); ABSOLUTE NEUT (AUTO) 4.2 10^3/uL (1.7-8.2); BASOPHILS % (AUTO) 0.4 % (0-2); EOSINOPHILS % (AUTO) 2.2 % (0-6); HEMATOCRIT 43.1 % (36.0-47.0); HEMOGLOBIN 14.7 g/dL (12.0-15.5); LYMPHOCYTES % (AUTO) 18.9 % (13-45); MEAN CORPUSCULAR HEMOGLOBIN 30.5 pg (27.0-33.4); MEAN CORPUSCULAR HGB CONC 34.2 g/dL (32.0-36.0); MEAN CORPUSCULAR VOLUME 89 fl (80-97); MONOCYTES % (AUTO) 15.7 % (3-13); PLATELET COUNT 351 10^3/uL (150-450); RED BLOOD COUNT 4.84 10^6/uL (3.72-5.28); RED CELL DISTRIBUTION WIDTH 14.1 % (11.5-14.0); SEGMENTED NEUTROPHILS % (AUTO) 62.8 % (42-78); TOTAL CELLS COUNTED % (AUTO) 100 %; WHITE BLOOD COUNT 6.7 10^3/uL (4.0-10.5)
[2019-11-30 13:18] LABS: VENOUS BLOOD BASE EXCESS -1.3 mmol/L; VENOUS BLOOD HCO3 25.5 mmol/L (20-32); VENOUS BLOOD PCO2 50.9 mmHg (35-63); VENOUS BLOOD PH 7.32 (7.30-7.42)
[2019-11-30 13:20] LABS: INTERNATIONAL RATION (INR) 1.15; PROTHROMBIN TIME 14.7 SEC (11.4-15.4)
[2019-11-30 13:23] LABS: AMORPHOUS SEDIMENT,URINE TRACE /HPF; APPEARANCE,URINE CLOUDY; BILIRUBIN,URINE SMALL (NEGATIVE); CALCIUM OXALATE CRYSTALS,URINE FEW /HPF; COLOR,URINE AMBER; GLUCOSE, URINE NEGATIVE (NEGATIVE); KETONES,URINE NEGATIVE (NEGATIVE); LEUKOCYTE ESTERASE,URINE LARGE (NEGATIVE); NITRITE,URINE NEGATIVE (NEGATIVE); PROTEIN,URINE 100 mg/dL (NEGATIVE); URINE SPECIFIC GRAVITY 1.024
[2019-11-30 13:32] LABS: ALKALINE PHOSPHATASE 67 U/L (38-126); ANION GAP 15 (5-19); ASPARTATE AMINO TRANSFERASE 16 U/L (14-36); BILIRUBIN,DIRECT 0.1 mg/dL (0.0-0.4); BILIRUBIN,TOTAL 0.5 mg/dL (0.2-1.3); BLOOD UREA NITROGEN 47 mg/dL (7-20); CALCIUM 9.2 mg/dL (8.4-10.2); CARBON DIOXIDE 23 mmol/L (22-30); CHLORIDE 99 mmol/L (98-107); GLUCOSE 128 mg/dL (75-110); POTASSIUM 4.3 mmol/L (3.6-5.0); TOTAL PROTEIN 7.9 g/dL (6.3-8.2)
[2019-11-30] MEDS ORDERED: NORMAL SALINE 1000 ML 1,000 ML IV ONE ×3 (13:53→23:30)
--- NOTE | 2019-11-30 15:53 | RADIOLOGY REPORT (SQ) ---
EXAM DESCRIPTION: CT ABD/PELVIS ORAL ONLY IMAGES COMPLETED DATE/TIME: 11/30/2019 3:42 pm REASON FOR STUDY: eval for cause of abdominal pain COMPARISON: 2015 TECHNIQUE: CT scan of the abdomen and pelvis performed without intravenous with oral contrast. Image s reviewed with lung, soft tissue, and bone windows. Reconstructed coronal and sagittal MPR images re viewed. All images stored on PACS. All CT scanners at this facility use dose modulation, iterative reconstruction, and/or weight based d osing when appropriate to reduce radiation dose to as low as reasonably achievable (ALARA). [facility]: Dose Right [facility]: CareDose [facility]: Dose Right [facility]: Teradose 4D [facility]: Smart Technologies RADIATION DOSE: CT Rad equipment meets quality standard of care and radiation dose reduction techniq ues were employed. CTDIvol: 11.5 mGy. DLP: 609 mGy-cm.mGy. LIMITATIONS: None. FINDINGS: LOWER CHEST: Scarring/ atelectasis at the lung bases. NON-CONTRASTED LIVER, SPLEEN, ADRENALS: Evaluation limited by lack of IV contrast. No identified sign ificant masses. PANCREAS: No masses. No peripancreatic inflammatory changes. GALLBLADDER: No identified stones by CT criteria. No inflammatory changes to suggest cholecystitis. RIGHT KIDNEY AND URETER: No suspicious masses. Assessment limited by lack of IV contrast. No signif icant calcifications. No hydronephrosis or hydroureter. LEFT KIDNEY AND URETER: No suspicious masses. Assessment limited by lack of IV contrast. No signifi cant calcifications. No hydronephrosis or hydroureter. AORTA AND RETROPERITONEUM: No aneurysm. No retroperitoneal masses or adenopathy. BOWEL AND PERITONEAL CAVITY: There is contrast in fluid present throughout the bowel including large and small bowel. Gastric distension. Contrast in the rectum. Generalize nonobstructive ileus. APPENDIX: Not visualized. PELVIS, BLADDER, AND ABDOMINAL WALL:Reyes catheter in the bladder. BONES: No significant findings. OTHER: No other significant finding. IMPRESSION: Generalize fluid and contrast feel bowel to the level the rectum indicating a degree of nonobstructive ileus. No other significant finding. COMMENT: Quality ID # [id number]: Final reports with documentation of one or more dose reduction techniques (e.g., Automated exposure control, adjustment of the mA and/or kV according to patient size, use of iterative reconstruction technique) TECHNICAL DOCUMENTATION: JOB ID: [id number] 2010 [employer]- All Rights Reserved Reading location - IP/workstation name: [email or web address]
[2019-11-30] MEDS ORDERED: CEFTRIAXONE 1 GM/D5W RTU 1 GM/50 ML RTUPB IV ONE ×2 (17:48→17:54)
[2019-11-30] MEDS ORDERED: METOCLOPRAMIDE HCL INJ/PF 10 MG/2 ML SDV IV SCH (18:45)
[2019-11-30] MEDS ORDERED: METOCLOPRAMIDE HCL INJ/PF 10 MG/2 ML SDV ONE (19:01)
--- NOTE | 2019-11-30 19:02 | PDOC H&P ---
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 She was hospitalized at [facility]. The details of the hospitalization are unclear because that facility has not yet sent the discharge summary, but sometime during all of this she apparently got a tracheostomy and a PEG tube. She does have some dysarthria. She said that she has not been using the PEG tube because she can swallow and she does not understand why she got the PEG tube. She took a sip of water in the emergency department and seemed to swallow it okay, but it was very messy when she did swallow. She presented to the ER today after coming home from the hospital just yesterday. She was complaining of some left-sided abdominal pain. There is a verbal report somewhere that she had a temperature of 101 F at home yesterday, but she did not have a fever here. She was a little tachycardic. She said her last bowel movement was sometime yesterday. She was complaining of the abdominal pain around the site of the PEG tube. Examination of the tube reveals some mild erythema but no exudate. The tube appears to be well-seated. Lab work revealed a dirty urinalysis and an acute kidney injury. Creatinine was 2.65 in the last set of lab work here was in April 2018 and at that time she had a normal creatinine. CT scan of the abdomen and pelvis showed no evidence of any fluid collection in the abdominal wall near the PEG tube nor any abnormality associated with it, but she was noted to have a nonobstructive ileus, oral contrast had been put into the PEG tube and made all the way down to the rectum. Past Medical History Cardiac Medical History: Reports: Hypertension Denies: Coronary Artery Disease, Myocardial Infarction Pulmonary Medical History: Denies: Asthma, Bronchitis, Chronic Obstructive Pulmonary Disease (COPD), Pneumonia Neurological Medical History: Denies: Seizures Musculoskeltal Medical History: Reports: Arthritis Hematology: Reports: Anemia - on iron Past Surgical History Past Surgical History: Reports: Section Social History Lives with: Family Smoking Status: Never Smoker Frequency of Alcohol Use: Rare Hx Recreational Drug Use: No Drugs: None Hx Prescription Drug Abuse: No Family History Family History: Hypertension, Malignancy, Other - Lupus Parental Family History Reviewed: Yes Children Family History Reviewed: Yes Sibling(s) Family History Reviewed.: Yes Medication/Allergy Home Medications: Iron Polysaccharides Complex [Nu-Iron 150 Capsule] 150 mg PO DAILY #30 capsule 03/09/16 Triamcinolone Acetonide [Aristocort 0.1% Ointment] 1 applic TP BID #30 gm 02/05/17 Tramadol HCl 50 mg PO Q8HP PRN #10 tablet 09/01/17 Diphenhydramine HCl [Benadryl] 50 mg PO PRN PRN 11/21/17 Metoprolol Succinate 25 mg PO DAILY 11/21/17 Oxycodone HCl/Acetaminophen [Percocet 5-325 mg Tablet] 1 tab PO ASDIR PRN 11/21/17 Allergies/Adverse Reactions: No Known Allergies Allergy (Verified 11/21/17 09:12) Review of Systems All systems: reviewed and no additional remarkable complaints except as stated - All systems were reviewed and were negative except as noted in the HPI Physical Exam Vital Signs: Temp Pulse Resp BP Pulse Ox 97.7 F 21 H 126/80 H 100 11/30/19 12:51 11/30/19 16:20 11/30/19 16:20 11/30/19 18:06 Intake & Output 11/29/19 11/30/19 12/01/19 06:59 06:59 06:59 Intake Total 1000 Balance 1000 Weight 80.7 kg General appearance: PRESENT: no acute distress, cooperative, disheveled Head exam: PRESENT: atraumatic, normocephalic Eye exam: PRESENT: EOMI, PERRLA. ABSENT: conjunctival injection, nystagmus, scleral icterus Ear exam: PRESENT: normal external ear exam Mouth exam: PRESENT: moist, neck supple Teeth exam: PRESENT: poor dentation Throat exam: ABSENT: post pharyngeal erythema Neck exam: PRESENT: full ROM, tracheostomy - Site is unremarkable. ABSENT: carotid bruit, JVD, lymphadenopathy, meningismus, tenderness, thyromegaly Respiratory exam: PRESENT: clear to auscultation latesha, symmetrical, unlabored. ABSENT: accessory muscle use, chest wall tenderness, crackles, prolonged expiratory phas, retraction, rhonchi, tachypnea, wheezes Cardiovascular exam: PRESENT: +S1, +S2, tachycardia Pulses: PRESENT: normal carotid pulses Vascular exam: PRESENT: normal capillary refill GI/Abdominal exam: PRESENT: distended, hypoactive bowel sounds, soft, other - There was approximately 1 cm radius around the PEG tube site that was erythematous, no exudate, PEG tube was appropriately seated and tethered. ABSENT: firm, guarding, rebound, tenderness Gentrourinary exam: PRESENT: indwelling catheter Extremities exam: ABSENT: clubbing, pedal edema Musculoskeletal exam: PRESENT: normal inspection. ABSENT: deformity Neurological exam: PRESENT: alert, awake, oriented to person, oriented to place, oriented to situation, other - Dysarthric. Pupils equal round reactive to light and accommodation. Palate seem to elevate to the midline, but when she swallowed it seem like water ran out of the right side of her mouth. She did not appear to have any trouble swallowing. Psychiatric exam: PRESENT: appropriate affect, normal mood Skin exam: PRESENT: dry, warm Results Laboratory Results: 11/30/19 12:44 11/30/19 12:44 11/30/19 11/30/19 11/30/19 12:44 12:44 12:44 WBC 6.7 RBC 4.84 Hgb 14.7 Hct 43.1 MCV 89 MCH 30.5 MCHC 34.2 RDW 14.1 H Plt Count 351 Seg Neutrophils % 62.8 VBG pH 7.32 VBG pCO2 50.9 VBG HCO3 25.5 VBG Base Excess -1.3 Sodium 137.3 Potassium 4.3 Chloride 99 Carbon Dioxide 23 Anion Gap 15 BUN 47 H Creatinine 2.65 H Est GFR ( Amer) 23 L Glucose 128 H Lactic Acid Calcium 9.2 Magnesium Total Bilirubin 0.5 AST 16 Alkaline Phosphatase 67 Total Protein 7.9 Albumin 4.0 Lipase 83.1 Urine Color Urine Appearance Urine pH Ur Specific [place] Urine Protein Urine Glucose (UA) Urine Ketones Urine Blood Urine Nitrite Ur Leukocyte Esterase Urine WBC (Auto) Urine RBC (Auto) 11/30/19 11/30/19 11/30/19 12:44 12:44 12:44 WBC RBC Hgb Hct MCV MCH MCHC RDW Plt Count Seg Neutrophils % VBG pH VBG pCO2 VBG HCO3 VBG Base Excess Sodium Potassium Chloride Carbon Dioxide Anion Gap BUN Creatinine Est GFR ( Amer) Glucose Lactic Acid 1.6 Calcium Magnesium 2.3 Total Bilirubin AST Alkaline Phosphatase Total Protein Albumin Lipase Urine Color ARSH Urine Appearance CLOUDY Urine pH 5.0 Ur Specific [place] 1.024 Urine Protein 100 H Urine Glucose (UA) NEGATIVE Urine Ketones NEGATIVE Urine Blood LARGE H Urine Nitrite NEGATIVE Ur Leukocyte Esterase LARGE H Urine WBC (Auto) 96 Urine RBC (Auto) 43 11/30/19 14:02 WBC RBC Hgb Hct MCV MCH MCHC RDW Plt Count Seg Neutrophils % VBG pH VBG pCO2 VBG HCO3 VBG Base Excess Sodium Potassium Chloride Carbon Dioxide Anion Gap BUN Creatinine Est GFR ( Amer) Glucose Lactic Acid 1.9 Calcium Magnesium Total Bilirubin AST Alkaline Phosphatase Total Protein Albumin Lipase Urine Color Urine Appearance Urine pH Ur Specific [place] Urine Protein Urine Glucose (UA) Urine Ketones Urine Blood Urine Nitrite Ur Leukocyte Esterase Urine WBC (Auto) Urine RBC (Auto) Impressions: Abdomen/Pelvis CT 11/30/19 00:00 IMPRESSION: Generalize fluid and contrast feel bowel to the level the rectum indicating a degree of nonobstructive ileus. No other significant finding. Assessment and Plan - Diagnosis (1) Acute kidney injury Is this a current diagnosis for this admission?: Yes Plan: Last set of labs here shows that she had normal renal function, creatinine 2.65 on admission. We will give her some IV fluids, monitor her urine output, and follow the trend her electrolytes and creatinine. (2) History of stroke Is this a current diagnosis for this admission?: Yes Plan: Waiting more of her records to come in from [place]. We will review her physical exam at discharge and do more thorough neurological examination at that time to determine if she has a pattern consistent with her discharge. (3) Dysphagia Qualifiers: Dysphagia type: other dysphagia Qualified Code(s): R13.19 - Other dysphagia Is this a current diagnosis for this admission?: Yes Plan: She gets tube feeds through PEG tube. With her ileus for now keeping her n.p.o. and will get a speech therapy evaluation. She seemed to do okay with water but she may have had some trouble swallowing that needs more detailed evaluation. (4) Ileus Is this a current diagnosis for this admission?: Yes Plan: We will keep her n.p.o. and give her some scheduled doses of Reglan in an attempt to get her bowels to start moving again. I think that this is caused by urinary tract infection causing an acute kidney injury which triggered the ileus. (5) UTI (urinary tract infection) Qualifiers: Urinary tract infection type: acute cystitis Hematuria presence: without hematuria Qualified Code(s): N30.00 - Acute cystitis without hematuria Is this a current diagnosis for this admission?: Yes Plan: She does have an indwelling catheter, so this is a catheter associated UTI that was present on admission from a Reyes catheter not placed here. She been started on some Rocephin, blood and urine cultures are pending. - Time Time Spent with patient: 35 or more minutes - Inpatient Certification Based on my medical assessment, after consideration of the patient's comorbidities, presenting symptoms, or acuity I expect that the services needed warrant INPATIENT care.: Yes I certify that my determination is in accordance with my understanding of Medicare's requirements for reasonable and necessary INPATIENT services [42 CFR 412.3e].: Yes Medical Necessity: Significant Comorbidiites Make Outpatient Treatment Too Risky, Need Close Monitoring Due to Risk of Patient Decompensation, Need For IV Fluids, Need For Continuous Telemetry Monitoring, Need for IV Antibiotics, Risk of Complication if Not Cared For in Hospital
[2019-11-30] MEDS ORDERED: METOCLOPRAMIDE HCL INJ/PF 10 MG/2 ML SDV IV ONE (19:45)
[2019-11-30] MEDS: RINGERS SOLUTION,LACTATED 1,000 ML IV PRN (21:00)
--- NOTE | 2019-11-30 21:38 | EKG REPORT ---
SEVERITY:- OTHERWISE NORMAL ECG - SINUS TACHYCARDIA : Confirmed by: Mario Cruz MD 30-Nov-2019 21:37:40
[2019-11-30] MEDS: HEPARIN SOD (PORCINE) 5,000 UNIT/ML 1 ML VIAL SUBCUT SCH (22:35)
[2019-11-30] MEDS ORDERED: MORPHINE SULFATE 10 MG/ML INJ IV ONE (23:00)
[2019-11-30] MEDS: METOCLOPRAMIDE HCL INJ/PF 10 MG/2 ML SDV IV SCH (23:36)
[2019-12-01] MEDS: RINGERS SOLUTION,LACTATED 1,000 ML IV PRN ×3 (00:44→21:23)
[2019-12-01] MEDS: HEPARIN SOD (PORCINE) 5,000 UNIT/ML 1 ML VIAL SUBCUT SCH ×3 (05:02→21:22)
[2019-12-01] MEDS: METOCLOPRAMIDE HCL INJ/PF 10 MG/2 ML SDV IV SCH ×4 (05:02→23:15)
[2019-12-01 06:16] LABS: HEMATOCRIT 34.6 % (36.0-47.0); MEAN CORPUSCULAR HEMOGLOBIN 30.5 pg (27.0-33.4); MEAN CORPUSCULAR HGB CONC 34.3 g/dL (32.0-36.0); MEAN CORPUSCULAR VOLUME 89 fl (80-97); PLATELET COUNT 278 10^3/uL (150-450); RED CELL DISTRIBUTION WIDTH 13.7 % (11.5-14.0); WHITE BLOOD COUNT 4.8 10^3/uL (4.0-10.5)
[2019-12-01 06:29] LABS: HEMOGLOBIN 11.9 g/dL (12.0-15.5)
[2019-12-01 06:43] LABS: ANION GAP 10 (5-19); BLOOD UREA NITROGEN 41 mg/dL (7-20); CALCIUM 8.5 mg/dL (8.4-10.2); CARBON DIOXIDE 23 mmol/L (22-30); CHLORIDE 102 mmol/L (98-107); GLUCOSE 101 mg/dL (75-110); POTASSIUM 3.8 mmol/L (3.6-5.0)
[2019-12-01] MEDS: CEFTRIAXONE 1 GM/D5W RTU 1 GM/50 ML RTUPB IV SCH (10:12)
--- NOTE | 2019-12-01 12:11 | PDOC PROGRESS REPORT ---
Subjective Progress Note for:: 12/01/19 Subjective:: No adverse events overnight. No new complaints. Vital signs been stable. Urine output has been good. Creatinine has returned to normal. She is growing a gram-negative out of her urine. She said she has passed a little bit of gas but has not had a bowel movement. She still has some abdominal distention. Reason For Visit: UTI,AMARJIT,ILEUS Physical Exam Vital Signs: Temp Pulse Resp BP Pulse Ox 97.5 F 86 18 107/60 95 12/01/19 07:28 12/01/19 07:28 12/01/19 07:28 12/01/19 07:28 12/01/19 07:28 Intake & Output 11/30/19 12/01/19 12/02/19 06:59 06:59 06:59 Intake Total 3305 1050 Output Total 800 Balance 2505 1050 Weight 80.7 kg General appearance: PRESENT: no acute distress, cooperative, disheveled Neck exam: PRESENT: full ROM, tracheostomy - Site is unremarkable. ABSENT: carotid bruit, JVD, lymphadenopathy, meningismus, tenderness, thyromegaly Respiratory exam: PRESENT: clear to auscultation latesha, symmetrical, unlabored. ABSENT: accessory muscle use, chest wall tenderness, crackles, prolonged expiratory phas, retraction, rhonchi, tachypnea, wheezes Cardiovascular exam: PRESENT: +S1, +S2, tachycardia Pulses: PRESENT: normal carotid pulses Vascular exam: PRESENT: normal capillary refill GI/Abdominal exam: PRESENT: distended, hypoactive bowel sounds, soft, other - There was approximately 1 cm radius around the PEG tube site that was er ythematous, no exudate, PEG tube was appropriately seated and tethered. ABSENT: firm, guarding, rebound, tenderness Gentrourinary exam: PRESENT: indwelling catheter Extremities exam: ABSENT: clubbing, pedal edema Musculoskeletal exam: PRESENT: normal inspection. ABSENT: deformity Neurological exam: PRESENT: alert, awake, oriented to person, oriented to place, oriented to situation, other - Dysarthric. Psychiatric exam: PRESENT: appropriate affect, normal mood Skin exam: PRESENT: dry, warm Results Laboratory Results: 12/01/19 05:50 12/01/19 05:50 11/30/19 11/30/19 11/30/19 12:44 12:44 12:44 WBC 6.7 RBC 4.84 Hgb 14.7 Hct 43.1 MCV 89 MCH 30.5 MCHC 34.2 RDW 14.1 H Plt Count 351 Seg Neutrophils % 62.8 VBG pH 7.32 VBG pCO2 50.9 VBG HCO3 25.5 VBG Base Excess -1.3 Sodium 137.3 Potassium 4.3 Chloride 99 Carbon Dioxide 23 Anion Gap 15 BUN 47 H Creatinine 2.65 H Est GFR ( Amer) 23 L Glucose 128 H Lactic Acid Calcium 9.2 Magnesium Total Bilirubin 0.5 AST 16 Alkaline Phosphatase 67 Total Protein 7.9 Albumin 4.0 Lipase 83.1 Urine Color Urine Appearance Urine pH Ur Specific [place] Urine Protein Urine Glucose (UA) Urine Ketones Urine Blood Urine Nitrite Ur Leukocyte Esterase Urine WBC (Auto) Urine RBC (Auto) 11/30/19 11/30/19 11/30/19 12:44 12:44 12:44 WBC RBC Hgb Hct MCV MCH MCHC RDW Plt Count Seg Neutrophils % VBG pH VBG pCO2 VBG HCO3 VBG Base Excess Sodium Potassium Chloride Carbon Dioxide Anion Gap BUN Creatinine Est GFR ( Amer) Glucose Lactic Acid 1.6 Calcium Magnesium 2.3 Total Bilirubin AST Alkaline Phosphatase Total Protein Albumin Lipase Urine Color ARSH Urine Appearance CLOUDY Urine pH 5.0 Ur Specific [place] 1.024 Urine Protein 100 H Urine Glucose (UA) NEGATIVE Urine Ketones NEGATIVE Urine Blood LARGE H Urine Nitrite NEGATIVE Ur Leukocyte Esterase LARGE H Urine WBC (Auto) 96 Urine RBC (Auto) 43 11/30/19 11/30/19 12/01/19 14:02 18:42 05:50 WBC 4.8 RBC 3.90 Hgb 11.9 L D Hct 34.6 L MCV 89 MCH 30.5 MCHC 34.3 RDW 13.7 Plt Count 278 Seg Neutrophils % VBG pH VBG pCO2 VBG HCO3 VBG Base Excess Sodium Potassium Chloride Carbon Dioxide Anion Gap BUN Creatinine Est GFR ( Amer) Glucose Lactic Acid 1.9 1.1 Calcium Magnesium Total Bilirubin AST Alkaline Phosphatase Total Protein Albumin Lipase Urine Color Urine Appearance Urine pH Ur Specific [place] Urine Protein Urine Glucose (UA) Urine Ketones Urine Blood Urine Nitrite Ur Leukocyte Esterase Urine WBC (Auto) Urine RBC (Auto) 12/01/19 05:50 WBC RBC Hgb Hct MCV MCH MCHC RDW Plt Count Seg Neutrophils % VBG pH VBG pCO2 VBG HCO3 VBG Base Excess Sodium 135.1 L Potassium 3.8 Chloride 102 Carbon Dioxide 23 Anion Gap 10 BUN 41 H Creatinine 0.91 Est GFR ( Amer) > 60 Glucose 101 Lactic Acid Calcium 8.5 Magnesium Total Bilirubin AST Alkaline Phosphatase Total Protein Albumin Lipase Urine Color Urine Appearance Urine pH Ur Specific [place] Urine Protein Urine Glucose (UA) Urine Ketones Urine Blood Urine Nitrite Ur Leukocyte Esterase Urine WBC (Auto) Urine RBC (Auto) Impressions: Abdomen/Pelvis CT 11/30/19 00:00 IMPRESSION: Generalize fluid and contrast feel bowel to the level the rectum indicating a degree of nonobstructive ileus. No other significant finding. Assessment and Plan - Diagnosis (1) Acute kidney injury Is this a current diagnosis for this admission?: Yes Plan: Resolved (2) History of stroke Is this a current diagnosis for this admission?: Yes Plan: Waiting more of her records to come in from [place]. We will review her physical exam at discharge and do more thorough neurological examination at that time to determine if she has a pattern consistent with her discharge. (3) Dysphagia Qualifiers: Dysphagia type: other dysphagia Qualified Code(s): R13.19 - Other dysphagia Is this a current diagnosis for this admission?: Yes Plan: She gets tube feeds through PEG tube. With her ileus for now keeping her n.p.o. and will get a speech therapy evaluation. She seemed to do okay with water but she may have had some trouble swallowing that needs more detailed evaluation. (4) Ileus Is this a current diagnosis for this admission?: Yes Plan: She is passing a little bit of gas but she still has a lot of abdominal distent ion. No evidence of obstruction on CT. Continue n.p.o. and scheduled Reglan. (5) UTI (urinary tract infection) Qualifiers: Urinary tract infection type: acute cystitis Hematuria presence: without hematuria Qualified Code(s): N30.00 - Acute cystitis without hematuria Is this a current diagnosis for this admission?: Yes Plan: Continue Rocephin. Urine culture is pending. Blood cultures negative thus far. - Time Time Spent with patient: 15-24 minutes
[2019-12-01] MEDS ORDERED: MORPHINE SULFATE 10 MG/ML INJ IV PRN (19:31)
[2019-12-02] MEDS: METOCLOPRAMIDE HCL INJ/PF 10 MG/2 ML SDV IV SCH ×4 (05:27→23:56)
[2019-12-02] MEDS: HEPARIN SOD (PORCINE) 5,000 UNIT/ML 1 ML VIAL SUBCUT SCH ×3 (05:27→21:52)
[2019-12-02 05:43] LABS: HEMATOCRIT 33.4 % (36.0-47.0); HEMOGLOBIN 11.4 g/dL (12.0-15.5); MEAN CORPUSCULAR HEMOGLOBIN 30.5 pg (27.0-33.4); MEAN CORPUSCULAR HGB CONC 34.2 g/dL (32.0-36.0); MEAN CORPUSCULAR VOLUME 89 fl (80-97); PLATELET COUNT 270 10^3/uL (150-450); RED BLOOD COUNT 3.74 10^6/uL (3.72-5.28); RED CELL DISTRIBUTION WIDTH 13.2 % (11.5-14.0)
[2019-12-02 06:08] LABS: ANION GAP 9 (5-19); CALCIUM 8.9 mg/dL (8.4-10.2); CARBON DIOXIDE 24 mmol/L (22-30); CHLORIDE 103 mmol/L (98-107); GLUCOSE 79 mg/dL (75-110)
[2019-12-02 06:31] LABS: BLOOD UREA NITROGEN 13 mg/dL (7-20)
[2019-12-02] MEDS: CEFTRIAXONE 1 GM/D5W RTU 1 GM/50 ML RTUPB IV SCH (11:07)
[2019-12-02] MEDS ORDERED: PHARMACY COMMUNICATION ORDER MC NR (11:45)
--- NOTE | 2019-12-02 12:59 | RADIOLOGY REPORT (SQ) ---
EXAM DESCRIPTION: COOKIE SWALLOW IMAGES COMPLETED DATE/TIME: 12/02/2019 12:49 pm REASON FOR STUDY: CVA, trach COMPARISON: None. TECHNIQUE: Videofluoroscopic swallowing examination was performed in conjunction with speech patholo gy. Videofluoroscopic imaging was obtained and reviewed and these are the findings: RADIATION DOSE: 2 minutes 12 seconds of fluoroscopy was used. 1 images saved to PACS. LIMITATIONS: None FINDINGS: The patient was brought into the fluoro room and placed upright on a modified barium swall ow chair. The patient was then given multiple consistencies mixed with barium to swallow under live fluoroscopic video guidance. According to the Speech Pathologist there was laryngeal penetration and aspiration of thin liquids and pudding consistency. IMPRESSION: LARYNGEAL PENETRATION AND ASPIRATION ABOVE. PLEASE SEE SPEECH PATHOLOGIST REPORT FOR OTHER FINDINGS AND RECOMMENDATIONS. COMMENT: Quality ID [id number]: Final reports for procedures using fluoroscopy that document radiation exp osure indices, or exposure time and number of fluorographic images (if radiation exposure indices are not available) TECHNICAL DOCUMENTATION: JOB ID: [id number] 2010 [employer]- All Rights Reserved Reading location - IP/workstation name: [email or web address]
--- NOTE | 2019-12-02 13:07 | ST Inp Modified Barium Swallow ---
Medical Diagnosis - Medical Diagnoses Medical Diagnosis Description & ICD-10 Code(s): hx of CVA, dysphagia - ICD-10 Tx Diagnosis Coding (1) Dysphagia ICD-10 Code(s): R13.10 - DYSPHAGIA, UNSPECIFIED ST Inpatient MBS - General Date: 12/02/19 Date of Onset: 10/19/19 - date of stroke - History -: Medical - per EMR: patient admitted 11/29 with abdominal pain. Prior medical history includes pontine stroke on 10/19/19, with subsequent tracheostomy and PEG placement. Patient reports that she was eating at home after her hospital discharge from her CVA "with no trouble". Patient is found to have ileus currently. At bedside, patient demonstrated very poor oral phase, with loss of liquids and drooling with secretions. MBSS recommended due to medical history. Medications: Medications Reviewed Allergies: Refer to medical record - patient stated allergic to chocolate - Subjective Current Nutritional Means: PEG Current Symptoms: Drooling, Spillage Pain: Patient reports, 0/5 - Objective Assessment: Upright, Left Lateral - Food Trials Food Trials Used: Thin liquids, Pureed The Patient: Required Assist - Assessment Labial Function: Impaired - significant anterior loss of liquids and secretions Lingual Function: Impaired - poor posterior tongue movement/bolus propulsion - Pharyngeal Stage Initiation of Pharyngeal Stage: Delayed - bolus in valleculae, spilling to pyriform prior to swallow initiation Decreased Laryngeal Elevation: Yes Reduced Velo-Pharyngeal Closure: no Reduced Pressure Generation: Yes Reduced Tongue Base Retraction: Yes Pre-Swallowing Pooling in Valleculae: Significant Pre-Swallowing Pooling in Pyriforms: Moderate Reduced Thyro-Hyiod Approximation: Yes Reduced Epiglottic Excursion: No Reduced Pharyngeal Peristalsis: No Multiple Swallows With: Cleared w/ Dry Swallow Post Swallow Residuals in Valleculae: Moderate Post Swallow Residuals in Pyriforms: Mild - Impression/Summary Laryngeal Penetration: Yes - with thin and pudding textures Tracheal Aspiration: yes - with thin and pudding textures, mostly silent Productive Cough: No Patient Presents With: Oral stage dysphagia - severe, Pharyngeal stage dysph. - severe Risk of Aspiration: Severe Risk Due To: Patient at risk of aspiration before the swallow due to premature spillage into valleculae and pyriform sinus, which was seen to penetrate laryng sana vestibule at times with thin and puree textures. Patient at risk of aspiration during the swallow due to incomplete closure of airway on the swallow, aspiration of thin and puree trials seen. Patient at risk of aspiration after the swallow due to residuals in the pharynx entering the airway. - Recommendations NPO: yes Dysphagia Therapy with OVERCASTER: Yes Other Recommendations: No safe PO diet recommendations can be made at this time. Patient presents with severe oral and pharyngeal phase dysphagia. Recommend dysphagia therapy to help increase coordination of the swallow and improve swallow function. Current goals: 1) Patient will demonstrate labial seal against resistance in 4/5 trials. 2) Patient will demonstrate effortful swallow with ice chip trials with adequate elevation in 4/5 trials. 3) Patient will demonstrate lingual lateralization and retraction in 8/10 trials. - Time Total Time: 30 Total Timed Minutes: 30
--- NOTE | 2019-12-02 15:59 | RADIOLOGY REPORT (SQ) ---
EXAM DESCRIPTION: KUB/ABDOMEN (SINGLE VIEW) IMAGES COMPLETED DATE/TIME: 12/02/2019 2:35 pm REASON FOR STUDY: Check Placement of NG Tube COMPARISON: None. NUMBER OF VIEWS: One view. TECHNIQUE: Supine radiographic image of the abdomen acquired. LIMITATIONS: None. FINDINGS: BOWEL GAS PATTERN: No dilated loops of bowel. CALCIFICATIONS: Vascular calcifications at the abdomen. SOFT TISSUES: No abnormality. HARDWARE: The tip and side hole of the enteric tube project past the gastroesophageal junction and wi thin the gastric lumen. BONES: No acute fracture. OTHER: No other finding. IMPRESSION: The tip and side hole of the enteric tube project past the gastroesophageal junction and within the gastric lumen. TECHNICAL DOCUMENTATION: JOB ID: [id number] 2010 [employer]- All Rights Reserved Reading location - IP/workstation name: [email or web address]
--- NOTE | 2019-12-02 16:06 | PDOC PROGRESS REPORT ---
Subjective Progress Note for:: 12/02/19 Subjective:: No adverse events overnight. No new complaints. She still has a lot of abdominal distention. She has not had a bowel movement. She had a modified barium swallow study today and failed with all consistencies. Reason For Visit: UTI,AMARJIT,ILEUS Physical Exam Vital Signs: Temp Pulse Resp BP Pulse Ox 97.8 F 80 16 140/67 H 100 12/02/19 12:00 12/02/19 12:00 12/02/19 12:00 12/02/19 12:00 12/02/19 12:00 Intake & Output 12/01/19 12/02/19 12/03/19 06:59 06:59 06:59 Intake Total 3305 1985 1050 Output Total 800 1300 Balance 2505 685 1050 Weight 80.7 kg 80.7 kg General appearance: PRESENT: no acute distress, cooperative, disheveled Neck exam: PRESENT: full ROM, tracheostomy - Site is unremarkable. ABSENT: carotid bruit, JVD, lymphadenopathy, meningismus, tenderness, thyromegaly Respiratory exam: PRESENT: clear to auscultation latesha, symmetrical, unlabored. ABSENT: accessory muscle use, chest wall tenderness, crackles, prolonged expiratory phas, retraction, rhonchi, tachypnea, wheezes Cardiovascular exam: PRESENT: +S1, +S2, tachycardia Pulses: PRESENT: normal carotid pulses Vascular exam: PRESENT: normal capillary refill GI/Abdominal exam: PRESENT: distended, hypoactive bowel sounds, soft, other - There was approximately 1 cm radius around the PEG tube site that was erythematous, no exudate, PEG tube was appropriately seated and tethered. ABSENT: firm, guarding, rebound, tenderness Gentrourinary exam: PRESENT: indwelling catheter Extremities exam: ABSENT: clubbing, pedal edema Musculoskeletal exam: PRESENT: normal inspection. ABSENT: deformity Neurological exam: PRESENT: alert, awake, oriented to person, oriented to place, oriented to situation, other - Dysarthric. Psychiatric exam: PRESENT: appropriate affect, normal mood Skin exam: PRESENT: dry, warm Results Laboratory Results: 12/02/19 05:25 12/02/19 05:25 12/02/19 12/02/19 05:25 05:25 WBC 6.0 RBC 3.74 Hgb 11.4 L Hct 33.4 L MCV 89 MCH 30.5 MCHC 34.2 RDW 13.2 Plt Count 270 Sodium 136.2 L Potassium 4.0 Chloride 103 Carbon Dioxide 24 Anion Gap 9 BUN 13 D Creatinine 0.44 L Est GFR ( Amer) > 60 Glucose 79 Calcium 8.9 11/30/19 12:44 Catheterized Urine Urine Culture - Final Klebsiella Pneumoniae Impressions: Abdomen/Pelvis CT 11/30/19 00:00 IMPRESSION: Generalize fluid and contrast feel bowel to the level the rectum indicating a degree of nonobstructive ileus. No other significant finding. Modified Barium Swallow 12/02/19 00:00 IMPRESSION: LARYNGEAL PENETRATION AND ASPIRATION ABOVE. PLEASE SEE SPEECH PATHOLOGIST REPORT FOR OTHER FINDINGS AND RECOMMENDATIONS. KUB X-Ray 12/02/19 11:44 IMPRESSION: The tip and side hole of the enteric tube project past the gastroesophageal junction and within the gastric lumen. Assessment and Plan - Diagnosis (1) Acute kidney injury Is this a current diagnosis for this admission?: Yes Plan: Resolved (2) History of stroke Is this a current diagnosis for this admission?: Yes Plan: She has some persistent right extremity deficits. She failed her modified barium swallow study today and so we are keeping her n.p.o. She said that she was eating whenever she wanted at home but I do not believe that to be the case. (3) Dysphagia Qualifiers: Dysphagia type: other dysphagia Qualified Code(s): R13.19 - Other dysphagia Is this a current diagnosis for this admission?: Yes Plan: Failed her modified barium swallow as noted above. She did not gag or cough with any consistencies despite having penetration with all of them. Continue n.p.o. for now. Will resume tube feedings once her ileus resolves. (4) Ileus Is this a current diagnosis for this admission?: Yes Plan: She has not had any improvement despite keeping her n.p.o. and giving her scheduled doses of Reglan. Contrast went all the way through to the rectum on t he CT that was done on admission. Have inserted an NG tube today and will start low intermittent wall suction. (5) UTI (urinary tract infection) Qualifiers: Urinary tract infection type: acute cystitis Hematuria presence: without hematuria Qualified Code(s): N30.00 - Acute cystitis without hematuria Is this a current diagnosis for this admission?: Yes Plan: She has grown out a fairly sensitive Klebsiella pneumonia. We will continue IV antibiotics until she can tolerate something through the PEG tube. - Time Time Spent with patient: 15-24 minutes
[2019-12-02] MEDS ORDERED: LORAZEPAM INJ 2 MG/1 ML VIAL ONE (16:52)
[2019-12-02] MEDS: LORAZEPAM INJ 2 MG/1 ML VIAL IV PRN ×2 (16:52→23:58)
[2019-12-02] MEDS: RINGERS SOLUTION,LACTATED 1,000 ML IV PRN (19:00)
[2019-12-03] MEDS ORDERED: DEXTROSE 50%-WATER 25 GM/50 ML DISP.SYRIN IV ONE (01:21)
[2019-12-03] MEDS: DEXTROSE 50%-WATER SYRINGE 12.5 GM/25 ML DOSE IV PRN ×3 (01:27→18:14)
[2019-12-03] MEDS ORDERED: GLUCAGON,HUMAN RECOMB 1 MG INJ IM PRN (01:30)
[2019-12-03] MEDS ORDERED: DEXTROSE 50%-WATER SYRINGE 25 GM/50 ML DOSE IV PRN (01:30)
[2019-12-03] MEDS ORDERED: DEXTROSE 40% GEL 15 GM TUBE PO PRN (01:30)
[2019-12-03] MEDS ORDERED: DEXTROSE 40% GEL 15 GM TUBE X 2 PO PRN (01:30)
[2019-12-03] MEDS: RINGERS SOLUTION,LACTATED 1,000 ML IV PRN ×2 (02:43→14:03)
[2019-12-03] MEDS: METOCLOPRAMIDE HCL INJ/PF 10 MG/2 ML SDV IV SCH ×3 (05:52→17:40)
[2019-12-03] MEDS: HEPARIN SOD (PORCINE) 5,000 UNIT/ML 1 ML VIAL SUBCUT SCH ×3 (05:52→21:52)
[2019-12-03 06:28] LABS: HEMATOCRIT 31.6 % (36.0-47.0); HEMOGLOBIN 10.9 g/dL (12.0-15.5); MEAN CORPUSCULAR HEMOGLOBIN 30.4 pg (27.0-33.4); MEAN CORPUSCULAR HGB CONC 34.5 g/dL (32.0-36.0); MEAN CORPUSCULAR VOLUME 88 fl (80-97); PLATELET COUNT 265 10^3/uL (150-450); RED BLOOD COUNT 3.59 10^6/uL (3.72-5.28); RED CELL DISTRIBUTION WIDTH 13.3 % (11.5-14.0); WHITE BLOOD COUNT 5.4 10^3/uL (4.0-10.5)
[2019-12-03 06:46] LABS: ANION GAP 7 (5-19); BLOOD UREA NITROGEN 4 mg/dL (7-20); CALCIUM 8.7 mg/dL (8.4-10.2); CARBON DIOXIDE 25 mmol/L (22-30); CHLORIDE 103 mmol/L (98-107); GLUCOSE 70 mg/dL (75-110); POTASSIUM 3.7 mmol/L (3.6-5.0)
[2019-12-03] MEDS: CEFTRIAXONE 1 GM/D5W RTU 1 GM/50 ML RTUPB IV SCH (09:43)
[2019-12-03] MEDS ORDERED: MORPHINE SULFATE 10 MG/ML INJ IV ONE (12:15)
--- NOTE | 2019-12-03 17:19 | PDOC PROGRESS REPORT ---
Subjective Progress Note for:: 12/03/19 Subjective:: Follow-up for abdominal pain, patient upset as she wants to go home. She also wants the NG tube out. Reason For Visit: UTI,AMARJIT,ILEUS Physical Exam Vital Signs: Temp Pulse Resp BP Pulse Ox 98.4 F 69 16 147/83 H 96 12/03/19 12:14 12/03/19 14:00 12/03/19 12:14 12/03/19 12:14 12/03/19 12:14 Intake & Output 12/02/19 12/03/19 12/04/19 06:59 06:59 06:59 Intake Total 1985 1822 1050 Output Total 1300 1250 Balance 032 859 9248 Weight 80.7 kg 88.4 kg 88.4 kg General appearance: PRESENT: no acute distress, other Head exam: PRESENT: atraumatic, normocephalic Eye exam: PRESENT: conjunctiva pink, EOMI, PERRLA. ABSENT: scleral icterus Ear exam: PRESENT: normal external ear exam Mouth exam: PRESENT: moist Neck exam: PRESENT: tracheostomy. ABSENT: carotid bruit, JVD, lymphadenopathy, thyromegaly Respiratory exam: PRESENT: clear to auscultation latesha. ABSENT: rales, rhonchi, wheezes Cardiovascular exam: PRESENT: RRR, +S1, +S2. ABSENT: diastolic murmur, rubs, systolic murmur Pulses: PRESENT: normal dorsalis pedis pul Vascular exam: PRESENT: normal capillary refill GI/Abdominal exam: PRESENT: normal bowel sounds, soft, other - NGT in place. ABSENT: distended, guarding, mass, organolmegaly, rebound, tenderness Rectal exam: PRESENT: deferred Extremities exam: PRESENT: full ROM. ABSENT: calf tenderness, clubbing, pedal edema Neurological exam: PRESENT: alert, awake, oriented to person, oriented to place. ABSENT: motor sensory deficit Psychiatric exam: ABSENT: homicidal ideation, suicidal ideation Skin exam: PRESENT: dry, intact, warm. ABSENT: cyanosis, rash Results Laboratory Results: 12/03/19 06:17 12/03/19 06:17 12/03/19 12/03/19 06:17 06:17 WBC 5.4 RBC 3.59 L Hgb 10.9 L Hct 31.6 L MCV 88 MCH 30.4 MCHC 34.5 RDW 13.3 Plt Count 265 Sodium 134.9 L Potassium 3.7 Chloride 103 Carbon Dioxide 25 Anion Gap 7 BUN 4 L Creatinine 0.36 L Est GFR ( Amer) > 60 Glucose 70 L Calcium 8.7 Impressions: Abdomen/Pelvis CT 11/30/19 00:00 IMPRESSION: Generalize fluid and contrast feel bowel to the level the rectum indicating a degree of nonobstructive ileus. No other significant finding. Modified Barium Swallow 12/02/19 00:00 IMPRESSION: LARYNGEAL PENETRATION AND ASPIRATION ABOVE. PLEASE SEE SPEECH PATHOLOGIST REPORT FOR OTHER FINDINGS AND RECOMMENDATIONS. KUB X-Ray 12/02/19 11:44 IMPRESSION: The tip and side hole of the enteric tube project past the gastroesophageal junction and within the gastric lumen. Assessment and Plan - Diagnosis (1) Abdominal pain Qualifiers: Abdominal location: generalized Qualified Code(s): R10.84 - Generalized abdominal pain Is this a current diagnosis for this admission?: Yes (2) Acute kidney injury Is this a current diagnosis for this admission?: Yes (3) Dysphagia Qualifiers: Dysphagia type: other dysphagia Qualified Code(s): R13.19 - Other dysphagia Is this a current diagnosis for this admission?: Yes (4) History of stroke Is this a current diagnosis for this admission?: Yes (5) Ileus Is this a current diagnosis for this admission?: Yes (6) UTI (urinary tract infection) Qualifiers: Urinary tract infection type: acute cystitis Hematuria presence: without hematuria Qualified Code(s): N30.00 - Acute cystitis without hematuria Is this a current diagnosis for this admission?: Yes - Plan Summary Summary: Modified barium swallow that was done indicated continued dysphagia Acute kidney injury Recent CVA with right-sided deficit and dysphagia Ileus still with significant NG aspirate will obtain KUB in a.m. for evaluation UTIKlebsiella pneumonia continue current
[2019-12-03] MEDS: PANTOPRAZOLE SODIUM 40 MG VIAL IV SCH (17:40)
[2019-12-03] MEDS: LORAZEPAM INJ 2 MG/1 ML VIAL IV PRN (18:47)
[2019-12-03] MEDS: DEXTROSE 5%-WATER 1000 ML 1,000 ML IV PRN (18:47)
[2019-12-03] MEDS: MORPHINE SULFATE 10 MG/ML INJ IV PRN (20:07)
[2019-12-04] MEDS: METOCLOPRAMIDE HCL INJ/PF 10 MG/2 ML SDV IV SCH ×4 (00:35→16:59)
[2019-12-04] MEDS: MORPHINE SULFATE 10 MG/ML INJ IV PRN ×4 (00:36→22:19)
[2019-12-04] MEDS: HEPARIN SOD (PORCINE) 5,000 UNIT/ML 1 ML VIAL SUBCUT SCH ×3 (05:42→22:19)
[2019-12-04] MEDS: DEXTROSE 5%-WATER 1000 ML 1,000 ML IV PRN ×2 (05:43→13:24)
[2019-12-04 05:48] LABS: ANION GAP 7 (5-19); CALCIUM 8.6 mg/dL (8.4-10.2); CARBON DIOXIDE 28 mmol/L (22-30); CHLORIDE 98 mmol/L (98-107); GLUCOSE 104 mg/dL (75-110); POTASSIUM 3.6 mmol/L (3.6-5.0)
[2019-12-04 05:49] LABS: BLOOD UREA NITROGEN < 2 mg/dL (7-20)
--- NOTE | 2019-12-04 08:38 | RADIOLOGY REPORT (SQ) ---
EXAM DESCRIPTION: KUB/ABDOMEN (SINGLE VIEW) IMAGES COMPLETED DATE/TIME: 12/04/2019 8:21 am REASON FOR STUDY: Ileus COMPARISON: CT of the abdomen and pelvis from 11/30/2019 an AP view of the chest from 12/02/2019. NUMBER OF VIEWS: One view. TECHNIQUE: Supine radiographic image of the abdomen acquired. LIMITATIONS: None. FINDINGS: BOWEL GAS PATTERN: Persistent diffuse gaseous distension of the bowel. Oral contrast is n oted within the right hemipelvis. CALCIFICATIONS: Pelvic phleboliths. SOFT TISSUES: No pneumatosis or portal venous gas. HARDWARE: The tip and side hole of the enteric tube project within the gastric lumen. There is a per cutaneous gastrostomy tube in place in the left upper quadrant. BONES: Findings of degenerative spondylosis and facet arthropathy in the lumbar spine. OTHER: No other finding. IMPRESSION: Unchanged mild diffuse gaseous distension of the bowel. TECHNICAL DOCUMENTATION: JOB ID: [id number] 2010 [employer]- All Rights Reserved Reading location - IP/workstation name: [email or web address]
[2019-12-04] MEDS: CEFTRIAXONE 1 GM/D5W RTU 1 GM/50 ML RTUPB IV SCH (09:06)
--- NOTE | 2019-12-04 12:25 | PDOC PROGRESS REPORT ---
Subjective Progress Note for:: 12/04/19 Subjective:: Follow-up for abdominal pain, patient still upset as she wants to go home. I have explained to her that we likely will remove NG tube at this afternoon and start her on tube feeding but she will have to be monitored to ensure that this is tolerated before she can be discharged. I also talked to her spouse as well as her mother with her permission and they are aware of the plan Reason For Visit: UTI,AMARJIT,ILEUS Physical Exam Vital Signs: Temp Pulse Resp BP Pulse Ox 97.8 F 64 16 132/73 H 99 12/04/19 06:22 12/04/19 07:00 12/04/19 06:22 12/04/19 06:22 12/04/19 09:03 Intake & Output 12/03/19 12/04/19 12/05/19 06:59 06:59 06:59 Intake Total 1822 2517 50 Output Total 1250 1525 Balance 572 992 50 Weight 88.4 kg 88.4 kg General appearance: PRESENT: no acute distress Head exam: PRESENT: atraumatic, normocephalic Eye exam: PRESENT: conjunctiva pink, EOMI. ABSENT: scleral icterus Mouth exam: PRESENT: tongue midline Neck exam: PRESENT: tracheostomy. ABSENT: carotid bruit, JVD, lymphadenopathy, thyromegaly Respiratory exam: PRESENT: clear to auscultation latesha, unlabored. ABSENT: rales, rhonchi, wheezes Cardiovascular exam: PRESENT: RRR, +S1, +S2. ABSENT: diastolic murmur, rubs, systolic murmur Pulses: PRESENT: normal dorsalis pedis pul Vascular exam: PRESENT: normal capillary refill GI/Abdominal exam: PRESENT: normal bowel sounds, soft, other - PEG tube intact. ABSENT: distended, guarding, mass, organolmegaly, rebound, tenderness Rectal exam: PRESENT: deferred Extremities exam: PRESENT: full ROM. ABSENT: calf tenderness, clubbing, pedal edema Neurological exam: PRESENT: alert, awake, oriented to person, oriented to place, oriented to time, oriented to situation, motor sensory deficit Psychiatric exam: PRESENT: appropriate affect, normal mood. ABSENT: homicidal ideation, suicidal ideation Skin exam: PRESENT: dry, intact, warm. ABSENT: cyanosis, rash Results Laboratory Results: 12/03/19 06:17 12/04/19 03:06 12/04/19 03:06 Sodium 133.1 L Potassium 3.6 Chloride 98 Carbon Dioxide 28 Anion Gap 7 BUN < 2 L Creatinine 0.34 L Est GFR ( Amer) > 60 Glucose 104 Calcium 8.6 Impressions: Abdomen/Pelvis CT 11/30/19 00:00 IMPRESSION: Generalize fluid and contrast feel bowel to the level the rectum in dicating a degree of nonobstructive ileus. No other significant finding. Modified Barium Swallow 12/02/19 00:00 IMPRESSION: LARYNGEAL PENETRATION AND ASPIRATION ABOVE. PLEASE SEE SPEECH PATHOLOGIST REPORT FOR OTHER FINDINGS AND RECOMMENDATIONS. KUB X-Ray 12/04/19 08:00 IMPRESSION: Unchanged mild diffuse gaseous distension of the bowel. Assessment and Plan - Diagnosis (1) Abdominal pain Qualifiers: Abdominal location: generalized Qualified Code(s): R10.84 - Generalized abdominal pain Is this a current diagnosis for this admission?: Yes (2) Acute kidney injury Is this a current diagnosis for this admission?: Yes (3) Dysphagia Qualifiers: Dysphagia type: other dysphagia Qualified Code(s): R13.19 - Other dysphagia Is this a current diagnosis for this admission?: Yes (4) History of stroke Is this a current diagnosis for this admission?: Yes (5) Ileus Is this a current diagnosis for this admission?: Yes (6) UTI (urinary tract infection) Qualifiers: Urinary tract infection type: acute cystitis Hematuria presence: without hematuria Qualified Code(s): N30.00 - Acute cystitis without hematuria Is this a current diagnosis for this admission?: Yes - Plan Summary Summary: Modified barium swallow that was done indicated continued dysphagia. Patient will remain n.p.o. and we will start her tube feeding as tolerated. Acute kidney injury-resolved Recent CVA with right-sided deficit and dysphagia Ileus resolving. Will start on NG tube feeding as tolerated UTIKlebsiella pneumonia continue current antibiotics - Time Time Spent with patient: 35 or more minutes - Including discussion with spouse and mother Medications reviewed and adjusted accordingly: Yes Anticipated discharge: Home Within: within 24 hours
[2019-12-04] MEDS: PANTOPRAZOLE SODIUM 40 MG VIAL IV SCH (16:59)
[2019-12-05] MEDS: DEXTROSE 5%-WATER 1000 ML 1,000 ML IV PRN ×2 (00:20→14:15)
[2019-12-05] MEDS: LORAZEPAM INJ 2 MG/1 ML VIAL IV PRN ×2 (02:43→10:56)
[2019-12-05] MEDS: METOCLOPRAMIDE HCL INJ/PF 10 MG/2 ML SDV IV SCH ×4 (06:17→17:28)
[2019-12-05] MEDS: HEPARIN SOD (PORCINE) 5,000 UNIT/ML 1 ML VIAL SUBCUT SCH ×3 (06:17→22:01)
[2019-12-05 06:28] LABS: ANION GAP 8 (5-19); BLOOD UREA NITROGEN < 2 mg/dL (7-20); CALCIUM 8.5 mg/dL (8.4-10.2); CARBON DIOXIDE 28 mmol/L (22-30); CHLORIDE 97 mmol/L (98-107); GLUCOSE 124 mg/dL (75-110); POTASSIUM 3.4 mmol/L (3.6-5.0)
[2019-12-05] MEDS ORDERED: POTASSIUM CHLORIDE 10 MEQ TABLET.ER PO ONE (09:30)
[2019-12-05] MEDS: CEFTRIAXONE 1 GM/D5W RTU 1 GM/50 ML RTUPB IV SCH (10:13)
[2019-12-05] MEDS: MORPHINE SULFATE 10 MG/ML INJ IV PRN ×2 (10:56→22:01)
--- NOTE | 2019-12-05 11:12 | PDOC PROGRESS REPORT ---
Subjective Progress Note for:: 12/05/19 Subjective:: Follow-up for abdominal pain, patient still upset as she wants to go home. I have explained to her that we likely will remove NG tube at this afternoon and start her on tube feeding but she will have to be monitored to ensure that this is tolerated before she can be discharged. I also talked to her spouse as well as her mother with her permission and they are aware of the plan 12/04Patient was seen and evaluated again today. Unfortunately tube feeding was not started yesterday. Patient had NG tube in place however after evaluation this was discontinued as patient had very minimal NG tube aspirate. A KUB from the December 03 and revealed largely unchanged mild diffuse gaseous distention of the bowel however clinically patient bowel was soft and she had no further evidence of ileus. The plan had been for her to be started on NG tube feeding prior to being discharged home today. There was no inventory control supervisor plan in place. Patient does not require TPN at this time. I have discussed with the nursing staff and at this time the plan is to start NG tube feeding as per my initial recommendations. Patient is to be monitored in hospital overnight and if she is able to tolerate the tube feeding then she can be discharged home hopefully in a.m. for text Reason For Visit: UTI,AMARJIT,ILEUS Physical Exam Vital Signs: Temp Pulse Resp BP Pulse Ox 98.0 F 68 20 157/69 H 97 12/05/19 08:00 12/05/19 08:00 12/05/19 08:00 12/05/19 08:00 12/05/19 08:00 Intake & Output 12/04/19 12/05/19 12/06/19 06:59 06:59 06:59 Intake Total 2517 1818 Output Total 1529 2250 Balance 992 -432 Weight 88.4 kg 83.6 kg General appearance: PRESENT: no acute distress, well-nourished Head exam: PRESENT: atraumatic, normocephalic Eye exam: PRESENT: conjunctiva pink, EOMI, PERRLA. ABSENT: scleral icterus Mouth exam: PRESENT: tongue midline Neck exam: PRESENT: tracheostomy. ABSENT: carotid bruit, JVD, lymphadenopathy, thyromegaly Respiratory exam: PRESENT: clear to auscultation latesha, unlabored. ABSENT: rales, rhonchi, wheezes Cardiovascular exam: PRESENT: RRR, +S1, +S2. ABSENT: diastolic murmur, rubs, systolic murmur Pulses: PRESENT: normal dorsalis pedis pul Vascular exam: PRESENT: normal capillary refill GI/Abdominal exam: PRESENT: normal bowel sounds, soft, other - PEG tube in place. ABSENT: distended, guarding, mass, organolmegaly, rebound, tenderness Rectal exam: PRESENT: deferred Gentrourinary exam: PRESENT: indwelling catheter Extremities exam: PRESENT: full ROM. ABSENT: calf tenderness, clubbing, pedal edema Neurological exam: PRESENT: alert, awake, oriented to person, oriented to place, oriented to time, oriented to situation, motor sensory deficit, other - dysarthria Psychiatric exam: ABSENT: homicidal ideation Skin exam: PRESENT: dry, intact, warm. ABSENT: cyanosis, rash Results Laboratory Results: 12/03/19 06:17 12/05/19 05:31 12/05/19 05:31 Sodium 132.6 L Potassium 3.4 L Chloride 97 L Carbon Dioxide 28 Anion Gap 8 BUN < 2 L Creatinine 0.36 L Est GFR ( Amer) > 60 Glucose 124 H Calcium 8.5 Impressions: Abdomen/Pelvis CT 11/30/19 00:00 IMPRESSION: Generalize fluid and contrast feel bowel to the level the rectum indicating a degree of nonobstructive ileus. No other significant finding. Modified Barium Swallow 12/02/19 00:00 IMPRESSION: LARYNGEAL PENETRATION AND ASPIRATION ABOVE. PLEASE SEE SPEECH PATHOLOGIST REPORT FOR OTHER FINDINGS AND RECOMMENDATIONS. KUB X-Ray 12/04/19 08:00 IMPRESSION: Unchanged mild diffuse gaseous distension of the bowel. Assessment and Plan - Diagnosis (1) Abdominal pain Qualifiers: Abdominal location: generalized Qualified Code(s): R10.84 - Generalized abdominal pain Is this a current diagnosis for this admission?: Yes (2) Acute kidney injury Is this a current diagnosis for this admission?: Yes Plan: Resolved (3) Dysphagia Qualifiers: Dysphagia type: other dysphagia Qualified Code(s): R13.19 - Other dysphagia Is this a current diagnosis for this admission?: Yes Plan: Failed her modified barium swallow as noted above. She did not gag or cough with any consistencies despite having penetration with all of them. Continue n .p.o. for now. Resume tube feedings and monitor (4) History of stroke Is this a current diagnosis for this admission?: Yes Plan: She has some persistent right extremity deficits. (5) Ileus Is this a current diagnosis for this admission?: Yes Plan: Resolving Start tube feeding, monitor clinically and if stable dc in am (6) UTI (urinary tract infection) Qualifiers: Urinary tract infection type: acute cystitis Hematuria presence: without hematuria Qualified Code(s): N30.00 - Acute cystitis without hematuria Is this a current diagnosis for this admission?: Yes Plan: She has grown out a fairly sensitive Klebsiella pneumonia. We will continue IV antibiotics - Plan Summary Summary: Modified barium swallow that was done indicated continued dysphagia. Patient will remain n.p.o. and we will start her tube feeding as tolerated. Acute kidney injury-resolved Recent CVA with right-sided deficit and dysphagia Ileus resolving. Will start on NG tube feeding as tolerated UTIKlebsiella pneumonia continue current antibiotics 12/04 Plan to restart NGT feeding patient clinically has minimal ileus. The plan continues to be to restart NG tube feeding make sure she can tolerate it check a residual monitor off for nausea and vomiting and if she is stable she will be discharged home in a.m.
[2019-12-05] MEDS: PANTOPRAZOLE SODIUM 40 MG VIAL IV SCH (17:27)
[2019-12-06] MEDS: METOCLOPRAMIDE HCL INJ/PF 10 MG/2 ML SDV IV SCH ×3 (01:50→12:51)
[2019-12-06] MEDS: DEXTROSE 5%-WATER 1000 ML 1,000 ML IV PRN (01:54)
[2019-12-06] MEDS: MORPHINE SULFATE 10 MG/ML INJ IV PRN ×2 (02:36→10:56)
[2019-12-06] MEDS: HEPARIN SOD (PORCINE) 5,000 UNIT/ML 1 ML VIAL SUBCUT SCH ×2 (06:07→14:30)
[2019-12-06] MEDS: CEFTRIAXONE 1 GM/D5W RTU 1 GM/50 ML RTUPB IV SCH (10:56)
[2019-12-06 12:46] VITALS: BP 97/56
--- NOTE | 2019-12-06 16:37 | PDOC DISCHARGE SUMMARY ---
Impression - Admit/DC Date/PCP Admission Date/Primary Care Provider: 11/30/19 18:48 MYRON MAYORGA DO Discharge Date: 12/06/19 - Discharge Diagnosis (1) Abdominal pain Is this a current diagnosis for this admission?: Yes (2) Acute kidney injury Is this a current diagnosis for this admission?: Yes (3) Dysphagia Is this a current diagnosis for this admission?: Yes (4) History of stroke Is this a current diagnosis for this admission?: Yes (5) Ileus Is this a current diagnosis for this admission?: Yes (6) UTI (urinary tract infection) Is this a current diagnosis for this admission?: Yes - Assessment Summary: Modified barium swallow that was done indicated continued dysphagia. Patient will remain n.p.o. and we will start her tube feeding as tolerated. Acute kidney injury-resolved Recent CVA with right-sided deficit and dysphagia Ileus resolving. Will start on NG tube feeding as tolerated UTIKlebsiella pneumonia continue current antibiotics 12/04 Plan to restart NGT feeding patient clinically has minimal ileus. The plan continues to be to restart NG tube feeding make sure she can tolerate it check a residual monitor off for nausea and vomiting and if she is stable she will be discharged home in a.m. - Additional Information Resuscitation Status: Full Code Discharge Diet: Tube Feeding (Comments) - Jevity 1.5 2 45/ml per hour Discharge Activity: Activity As Tolerated Referrals: MYRON MAYORGA DO [Primary Care Provider] - 03/26/20 3:00 pm (Below is the first available follow up appointment. The call center receptionist stated to please call the office to see if there is any cancellations.) Prescriptions: Lactose-Reduced Food/Fiber [Jevity 1.5 Malik Liquid] 45 ml PEG CONTINUOUS #1 each Home Medications: Atorvastatin Calcium [Lipitor 40 mg Tablet] 40 mg PO QHS 12/01/19 Cetirizine HCl [Zyrtec] 10 mg PO DAILY 12/01/19 Docusate Sodium 50 mg PO BID 12/01/19 Fluoxetine HCl [Prozac 20 mg Capsule] 20 mg PO DAILY 12/01/19 Fluticasone Propionate [Flonase Nasal [place] 50 Mcg/[place] 16 gm] 2 sprays NASL DAILY 12/01/19 Folic Acid 1 mg PO DAILY 12/01/19 Lansoprazole [Prevacid 15 mg Odt Tablet] 15 mg PO Q12 12/01/19 Linaclotide [Linzess 145 Mcg Capsule] 145 mcg PO QAM 12/01/19 Lisinopril [Prinivil] 20 mg PO DAILY 12/01/19 Melatonin 5 mg PO QHS 12/01/19 Meloxicam [Mobic] 15 mg PO DAILY 12/01/19 Modafinil [Provigil 100 mg Tablet] 100 mg PO BID 12/01/19 [place]-3 160mg/0.5ml 25 ml GT BID 12/01/19 Quetiapine Fumarate [Seroquel] 25 mg PO QAM 12/01/19 Scopolamine Hydrobromide [Transderm-Scop 1.5 mg Patch] 1 patch TD Q3DAYS 12/01/19 Sennosides [Senna] 17.2 mg PO QHS 12/01/19 Tramadol HCl [Ultram 50 mg Tablet] 50 mg PO Q6HP PRN 12/01/19 Lactose-Reduced Food/Fiber [Jevity 1.5 Malik Liquid] 45 ml PEG CONTINUOUS #1 each 12/06/19 History of Present Illiness History of Present Illness: PACO KITCHEN is a 49 year old female Patient presents to the emergency room with left-sided abdominal pain. She was also found to be tachycardic. She was found to have a nonobstructive ileus on the CT scan done in the emergency room and so she was admitted for further evaluation and management. Please see admitting history and physical for full details. 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 She does have a tracheostomy as well as a PEG tube. Apparently she had been fed at home orally but she failed a swallowing test while in the hospital and because of her ileus she was temporarily n.p.o. and had no tube feeding. She had an NG tube inserted to decompress abdomen. This was in place for a. Of 48 to 72 hours. Ileus clinically resolved. She was treated with proton pump inhibitor. She was then evaluated by dietitian who recommended changing the enteral feeding to Jevity as patient apparently had not been tolerating tube feeding at home. She was started on Jevity and she was monitored for 24 hours. She seemed to tolerate this pretty well. She had a good bowel movement and there was no evidence of any vomiting or residuals. Patient was treated for a urinary tract infection secondary to Klebsiella pneumoniae she completed her course of IV antibiotics. She has otherwise remained hemodynamically stable. Her hemoglobin was noted to be decreased from initial presentation but the initial value at 14.7 was probably secondary to hemoconcentration. She was in acute renal failure with a creatinine of 2.65 on initial presentation. Creatinine at discharge was 0.36 and initial BUN was 47 with BUN on discharge at 2. To be high risk for readmission due to her underlying condition with a PEG as well as a tracheostomy but at this time patient is stable enough to be discharged home and so she has been discharged home in stable condition Physical Exam Vital Signs: Temp Pulse Resp BP Pulse Ox 97.9 F 88 17 99/74 L 94 12/06/19 08:00 12/06/19 08:00 12/06/19 08:00 12/06/19 08:00 12/06/19 08:09 Intake & Output 12/05/19 12/06/19 12/07/19 06:59 06:59 06:59 Intake Total 1818 2443 Output Total 2250 2400 Balance -432 43 Weight 83.6 kg 86 kg General appearance: PRESENT: no acute distress Head exam: PRESENT: atraumatic, normocephalic Eye exam: PRESENT: conjunctiva pink, PERRLA. ABSENT: scleral icterus Mouth exam: PRESENT: moist, tongue midline Neck exam: PRESENT: tracheostomy. ABSENT: carotid bruit, JVD, lymphadenopathy, thyromegaly Respiratory exam: PRESENT: clear to auscultation latesha, unlabored. ABSENT: rales, rhonchi, wheezes Cardiovascular exam: PRESENT: RRR, +S1, +S2. ABSENT: diastolic murmur, rubs, systolic murmur Vascular exam: PRESENT: normal capillary refill GI/Abdominal exam: PRESENT: normal bowel sounds, soft, other - PEG tube. ABSENT: distended, guarding, mass, organolmegaly, rebound, tenderness Rectal exam: PRESENT: deferred Extremities exam: PRESENT: full ROM. ABSENT: calf tenderness, clubbing, pedal edema Neurological exam: PRESENT: alert, awake, oriented to person, oriented to place, oriented to time, oriented to situation, motor sensory deficit, other - dysarthria Psychiatric exam: PRESENT: appropriate affect, normal mood. ABSENT: homicidal ideation, suicidal ideation Skin exam: PRESENT: dry, intact, warm. ABSENT: cyanosis, rash Results Laboratory Results: WBC 5.4 10^3/uL (4.0-10.5) 12/03/19 06:17 RBC 3.59 10^6/uL (3.72-5.28) L 12/03/19 06:17 Hgb 10.9 g/dL (12.0-15.5) L 12/03/19 06:17 Hct 31.6 % (36.0-47.0) L 12/03/19 06:17 MCV 88 fl (80-97) 12/03/19 06:17 MCH 30.4 pg (27.0-33.4) 12/03/19 06:17 MCHC 34.5 g/dL (32.0-36.0) 12/03/19 06:17 RDW 13.3 % (11.5-14.0) 12/03/19 06:17 Plt Count 265 10^3/uL (150-450) 12/03/19 06:17 Lymph % (Auto) 18.9 % (13-45) 11/30/19 12:44 [place] % (Auto) 15.7 % (3-13) H 11/30/19 12:44 Eos % (Auto) 2.2 % (0-6) 11/30/19 12:44 Baso % (Auto) 0.4 % (0-2) 11/30/19 12:44 Absolute Neuts (auto) 4.2 10^3/uL (1.7-8.2) 11/30/19 12:44 Absolute Lymphs (auto) 1.3 10^3/uL (0.5-4.7) 11/30/19 12:44 Absolute Monos (auto) 1.0 10^3/uL (0.1-1.4) 11/30/19 12:44 Absolute Eos (auto) 0.1 10^3/uL (0.0-0.6) 11/30/19 12:44 Absolute Basos (auto) 0.0 10^3/uL (0.0-0.2) 11/30/19 12:44 Seg Neutrophils % 62.8 % (42-78) 11/30/19 12:44 PT 14.7 SEC (11.4-15.4) 11/30/19 12:44 INR 1.15 11/30/19 12:44 VBG pH 7.32 (7.30-7.42) 11/30/19 12:44 VBG pCO2 50.9 mmHg (35-63) 11/30/19 12:44 VBG HCO3 25.5 mmol/L (20-32) 11/30/19 12:44 VBG Base Excess -1.3 mmol/L 11/30/19 12:44 Sodium 132.6 mmol/L (137-145) L 12/05/19 05:31 Potassium 3.4 mmol/L (3.6-5.0) L 12/05/19 05:31 Chloride 97 mmol/L (98-107) L 12/05/19 05:31 Carbon Dioxide 28 mmol/L (22-30) 12/05/19 05:31 Anion Gap 8 (5-19) 12/05/19 05:31 BUN < 2 mg/dL (7-20) L 12/05/19 05:31 Creatinine 0.36 mg/dL (0.52-1.25) L 12/05/19 05:31 Est GFR ( Amer) > 60 (>60) 12/05/19 05:31 Est GFR (MDRD) Non-Af > 60 (>60) 12/05/19 05:31 Glucose 124 mg/dL (75-110) H 12/05/19 05:31 POC Glucose 130 mg/dL (70-110) H 12/06/19 06:15 Lactic Acid 1.1 mmol/L (0.7-2.1) 11/30/19 18:42 Calcium 8.5 mg/dL (8.4-10.2) 12/05/19 05:31 Magnesium 2.3 mg/dL (1.6-2.3) 11/30/19 12:44 Total Bilirubin 0.5 mg/dL (0.2-1.3) 11/30/19 12:44 Direct Bilirubin 0.1 mg/dL (0.0-0.4) 11/30/19 12:44 Neonat Total Bilirubin Not Reportable 11/30/19 12:44 Neonat Direct Bilirubin Not Reportable 11/30/19 12:44 Neonat Indirect Bili Not Reportable 11/30/19 12:44 AST 16 U/L (14-36) 11/30/19 12:44 ALT 21 U/L (<35) 11/30/19 12:44 Alkaline Phosphatase 67 U/L (38-126) 11/30/19 12:44 Total Protein 7.9 g/dL (6.3-8.2) 11/30/19 12:44 Albumin 4.0 g/dL (3.5-5.0) 11/30/19 12:44 Lipase 83.1 U/L (23-300) 11/30/19 12:44 Urine Color ARSH 11/30/19 12:44 Urine Appearance CLOUDY 11/30/19 12:44 Urine pH 5.0 (5.0-9.0) 11/30/19 12:44 Ur Specific [place] 1.024 11/30/19 12:44 Urine Protein 100 mg/dL (NEGATIVE) H 11/30/19 12:44 Urine Glucose (UA) NEGATIVE mg/dL (NEGATIVE) 11/30/19 12:44 Urine Ketones NEGATIVE mg/dL (NEGATIVE) 11/30/19 12:44 Urine Blood LARGE (NEGATIVE) H 11/30/19 12:44 Urine Nitrite NEGATIVE (NEGATIVE) 11/30/19 12:44 Urine Bilirubin SMALL (NEGATIVE) H 11/30/19 12:44 Urine Urobilinogen 2.0 mg/dL (<2.0) H 11/30/19 12:44 Ur Leukocyte Esterase LARGE (NEGATIVE) H 11/30/19 12:44 Urine WBC (Auto) 96 /HPF 11/30/19 12:44 Urine RBC (Auto) 43 /HPF 11/30/19 12:44 Urine Bacteria (Auto) 3+ /HPF 11/30/19 12:44 Urine WBC Clumps FEW /HPF 11/30/19 12:44 Squamous Epi Cells Auto 3 /HPF 11/30/19 12:44 Calcium Oxalate Cr Auto FEW /HPF 11/30/19 12:44 Amorphous Sediment Auto TRACE /HPF 11/30/19 12:44 Urine Mucus (Auto) MOD /LPF 11/30/19 12:44 Urine Ascorbic Acid NEGATIVE (NEGATIVE) 11/30/19 12:44 Impressions: Abdomen/Pelvis CT 11/30/19 00:00 IMPRESSION: Generalize fluid and contrast feel bowel to the level the rectum indicating a degree of nonobstructive ileus. No other significant finding. Modified Barium Swallow 12/02/19 00:00 IMPRESSION: LARYNGEAL PENETRATION AND ASPIRATION ABOVE. PLEASE SEE SPEECH PATHOLOGIST REPORT FOR OTHER FINDINGS AND RECOMMENDATIONS. KUB X-Ray 12/02/19 11:44 IMPRESSION: The tip and side hole of the enteric tube project past the gastroesophageal junction and within the gastric lumen. KUB X-Ray 12/04/19 08:00 IMPRESSION: Unchanged mild diffuse gaseous distension of the bowel. Plan Health Concerns: High risk for recurrent readmissions, aspiration pneumonia as well as infections due to underlying condition Time Spent: Greater than 30 Minutes Stroke Is this a Stroke Patient?: No Acute Heart Failure - Is this a Heart Failure Patient?: No
== END 2019-12-06 14:28 | disposition home health service (06) | DRG 699 ==
LOC: ER 12:30 → EH 18:48 → 4S 20:12
PROVIDERS: ADMIT Family Medicine; ATTEND Internal Medicine
DX: T83.518A Infection and inflammatory reaction due to other urinary catheter, initial encounter (principal); N30.00 Acute cystitis without hematuria; I69.351 Hemiplegia and hemiparesis following cerebral infarction affecting right dominant side; N17.9 Acute kidney failure, unspecified; K56.7 Ileus, unspecified; I10 Essential (primary) hypertension; M32.9 Systemic lupus erythematosus, unspecified; B96.5 Pseudomonas (aeruginosa) (mallei) (pseudomallei) as the cause of diseases classified elsewhere; D50.9 Iron deficiency anemia, unspecified; I69.391 Dysphagia following cerebral infarction; Z79.899 Other long term (current) drug therapy; Z93.0 Tracheostomy status; Z93.1 Gastrostomy status
CPT/HCPCS: 36415; 74018; 74176; 74230; 80048; 80053; 81001; 82803; 82962; 83605; 83690; 83735; 85025; 85027; 85610; 87040; 87086; 87088; 87186; 93005; 93010; 96361; 96365; 99285; C9113; J0696; J1644; J2060; J2270; J2765; J3490; J7030; J7060; J7120

== ENCOUNTER 2019-12-26 20:22 | Emergency (ER) | payer MEDICAID ==
--- NOTE | 2019-12-26 22:05 | ER Document Report ---
Entered by KAVITA SHAFER SCRIBE 12/26/[id number] Acting as scribe for:BELGICA JENKINS IV, MD ED General - General Chief Complaint: bleeding around trach Stated Complaint: TRACH HEMORRHAGE Time Seen by Provider: 12/26/19 20:59 Primary Care Provider: MYRON MAYORGA DO [Primary Care Provider] - Follow up as needed Mode of Arrival: Medic Information source: Patient Notes: This 49 year old female patient brought in by EMS from home presents to the ED today with complaints of bleeding around her tracheostomy that started prior to arrival. Patient states that her sister was concerned about the bleeding and that she is just here to "ease her mind." She notes that her trach has been "like this for a couple of hours." Denies any other complaints or symptoms at this time. TRAVEL OUTSIDE OF THE [place] IN LAST 30 DAYS: No - Related Data Allergies/Adverse Reactions: No Known Allergies Allergy (Verified 12/26/19 20:31) Home Medications: Quetiapine fumarate, tramadol, atorvastatin, cetirizine, folic acid, pregabalin, promethazine, fluoxetine Past Medical History - General Information source: Patient, [facility] Records - Social History Smoking Status: Former Smoker Cigarette use (# per day): No Chew tobacco use (# tins/day): No Smoking Education Provided: No Frequency of alcohol use: None Drug Abuse: None Lives with: Family Family History: Reviewed & Not Pertinent, Hypertension, Malignancy, Other - Lupus Patient has suicidal ideation: No Patient has homicidal ideation: No - Past Medical History Cardiac Medical History: Reports: Hx Hypertension Musculoskeletal Medical History: Reports Hx Arthritis Past Surgical History: Reports: Hx Section - Immunizations Immunizations up to date: No Hx Diphtheria, Pertussis, Tetanus Vaccination: Yes Review of Systems - Review of Systems Constitutional: No symptoms reported EENT: See HPI, Other - Bleeding around trach Cardiovascular: No symptoms reported Respiratory: No symptoms reported Gastrointestinal: No symptoms reported Genitourinary: No symptoms reported Female Genitourinary: No symptoms reported Musculoskeletal: No symptoms reported Skin: No symptoms reported Hematologic/Lymphatic: No symptoms reported Neurological/Psychological: No symptoms reported -: Yes All other systems reviewed and negative Physical Exam - Vital signs Vitals: Temp 98.2 F 12/26/19 20:31 Interpretation: Normal - General General appearance: Appears well, Alert In distress: None - HEENT Head: Normocephalic, Atraumatic Eyes: Normal Pupils: PERRL Neck: Other - Tracheostomy appears clean and intact. No evidence of bleeding or respiratory difficulty - Respiratory Respiratory status: No respiratory distress Chest status: Nontender Breath sounds: Normal Chest palpation: Normal - Cardiovascular Rhythm: Regular Heart sounds: Normal auscultation Murmur: No - Abdominal Inspection: Normal Distension: No distension Bowel sounds: Normal Tenderness: Nontender Organomegaly: No organomegaly - Back Back: Normal, Nontender - Extremities General upper extremity: Normal inspection General lower extremity: Normal inspection - Neurological Neuro grossly intact: Yes - Psychological Associated symptoms: Normal affect, Normal mood - Skin Skin Temperature: Warm Skin Moisture: Dry Skin Color: Normal Course - Re-evaluation Re-evalutation: 12/26/19 22:20 Patient is watching TV. Trach site was reinspected by this MD. There is no evidence of bleeding from the trach site. There is no evidence of respiratory difficulty on part of patient. All questions were answered prior to discharge. Emergency signs and symptoms, reasons to return to the emergency department discussed with patient. - Vital Signs Vital signs: Temp Pulse Resp BP Pulse Ox 98.2 F 12/26/19 20:31 Discharge - Discharge Clinical Impression: Encounter for attention to tracheostomy Condition: Good Disposition: HOME, SELF-CARE Additional Instructions: Return to the Emergency Department without delay if any worse. HOME CARE INSTRUCTIONS & INFORMATION: Thank you for choosing us for your medical needs. We hope you're satisfied with the care you received. After you leave, you must properly care for your problem and, at the same time, observe its progress. Any condition can change. Some illnesses can change rapidly over hours or days. If your condition worsens, return to the Emergency Department or see your physician promptly. ABOUT YOUR X-RAYS AND EKG'S: If you had an EKG or X-rays taken, they have been read by the Emergency Physician. The X-rays and EKG's will also be read by a Radiologist or Social Services Manager within 24 hours. If discrepancies are noted, you will be notified by telephone. Please be certain the ED has a correct telephone number & address where you can be reached. Also, realize that some fractures or abnormalities do not show up on initial X-rays. If your symptoms continue, see your physician. ABOUT YOUR LABORATORY TEST: If you had laboratory tests, the results have been reviewed by the Emergency Physician. Some test results (for example cultures) may not be available for several days. You will be contacted if any test result shows you need additional treatment. Please be certain the ED has a correct telephone number and address where you can be reached. ABOUT YOUR MEDICATIONS: You will receive instructions on how to take your medicine on the prescription label you receive. Additional information may be provided by the Pharmacy. If you have questions afterwards, call the ED for clarification or further instructions. Some prescribed medications may cause drowsiness. Do not perform tasks such as driving a car or operating machinery without consulting your Pharmacist. If you feel you need a refill of pain medication, your condition will need re-evaluation. Please do not call for a refill of any medication. ABOUT YOUR SIGNATURE: Signature of this document acknowledges to followin. Understanding that you received emergency treatment and that you may be released before al medical problems are known or treated. Please be certain the ED has a correct phone number & address where you can be reached. 2. Acknowledgement that you will arrange for follow-up care as recommended. 3. Authorization for the Emergency Physician to provide information to your follow-up Physician in order to maximize your care. AT ANY TIME, IF YOUR SYMPTOMS CHANGE SIGNIFICANTLY OR WORSEN OR YOU DEVELOP NEW SYMPTOMS, RETURN TO THE EMERGENCY DEPARTMENT IMMEDIATELY FOR RE-EVALUATION. OUR GOAL IS TO PROVIDE EXCELLENT MEDICAL CARE! WE HOPE THAT WE HAVE MET YOUR EXPECTATIONS DURING YOUR EMERGENCY DEPARTMENT VISIT AND THAT YOU FEEL YOU HAVE RECEIVED EXCELLENT CARE! Referrals: MYRON MAYORGA DO [Primary Care Provider] - 12/27/19 I personally performed the services described in the documentation, reviewed and edited the documentation which was dictated to the scribe in my presence, and it accurately records my words and actions.
[2019-12-26 23:37] VITALS: BP 109/68
== END 2019-12-26 23:40 | disposition home or self-care (01) ==
LOC: ER 20:22
DX: Z43.0 Encounter for attention to tracheostomy (principal); I10 Essential (primary) hypertension
CPT/HCPCS: 99283

== ENCOUNTER → 2020-01-21 | Outpatient (CLI) | payer MEDICAID ==
--- NOTE | 2020-01-21 09:19 | ST Modified Barium Swallow ---
Recommendation - Recommendations Recommendations: Recommend continued dysphagia treatment with current home health therapy. Diet recommendations: thin liquids and puree solids, start introducing fork mashable solids (mechanical soft), no meats or breads. Repeat MBSS as indicated by treating therapist. Medical Diagnoses - Medical Diagnoses Medical Diagnosis Description & ICD-10 Code(s): hx of CVA, dysphagia Other Medical Diagnoses/Co-Morbidities: pontine stroke, hx of ileus - ICD-10 Tx Diagnosis Coding (1) Dysphagia ICD-10 Code(s): R13.10 - DYSPHAGIA, UNSPECIFIED (2) CVA (cerebral vascular accident) ICD-10 Code(s): I63.9 - CEREBRAL INFARCTION, UNSPECIFIED ST Modified Barium Swallow - General Date: 01/21/20 Referring Physician: Dr. Claros Risks/Precautions: Falls, Aspiration Date of Onset: 10/19/19 - date of CVA Reason for Referral: monitor swallowing progress - History -: Medical - This patient was previously admitted to this hospital in November of this year. Patient's history includes pontine stroke on 10/19/19 (not at this hospital) with subsequent tracheostomy and PEG placements. Patient was later admitted to this hospital for other issues, MBSS completed during that hospitalization showed very poor oral phase, as well as aspiration on thin liquids and puree solids. Aspiration was silent. After discharge from the hospital, the patient reports no other significant medical changes have occured. She states that she is receiving home health speech therapy for swallowing 1x per week, and completes exercises on her own throughout the week. She reports that she is currently eating pureed foods and thin liquids, using PEG for medications only. Medications: list not provided Allergies: no allergies reported - Functional Status Prior Functional Status: INDEPENDENT: feeding Current Functional Limitations: feeding - on modified diet (puree) - Subjective Patient/caregiver goal(s): better swallow Cognitive-Linguistic Function: Functional Speech Intelligibility: Moderately dysarthric - ataxic type speech movements Current Nutritional Means: PEG, PO Current PO diet: Pureed, Regular - liquids Current symptoms: Aspiration Pain: Patient reports, 0/5 - Objective Assessment: Upright, Left Lateral - Food Trials Used Food trials used: Thin liquids, [place] thick liquids, Pureed, Regular The patient: Required Assist - Oral-Motor Skills Dentition: Partial Velo-pharyngeal function: Unremarkable Laryngeal Function: clear voicing Oral Motor Skills: some discoordination and spasticity of movements noted. - Assessment Oral prep: Mildly Impaired Labial closure: Adequate Leakage: None Mastication: Lengthy Lingual Movement: Discoordinated - mild Oral stage: Mildly Impaired Oral Stage: Improved from last study (12/02/19). Mild discoordination seen, little to no anterior loss of bolus. - Pharyngeal Stage Initiation of Pharyngeal Stage Reflex: Delayed - bolus fully in valleculae beginning to move to pyriform prior to swallow Decreased laryngeal elevation: Yes - mild Reduced Velopharyngeal Closure: no Reduced pressure generation: Yes reduced tongue-based retraction: Yes Pre-swallow pooling in valleculae: Moderate Pre-Swallow pooling in pyriforms: None Reduced Thyro-Hyoid approximation: Yes - mild Reduced epiglottic excursion: Yes - mild Post-swallow residulas vallecular: Moderate Post-Swallow residuals in pyriforms: None Post-Swallow Residuals: tongue-base - Fall Risk Assessment Medications/Conditions that increase fall risks include: Antidepressants, sedatives, anti-arrhythmic, diuretic, benzodiazipenes, neuroleptics. BP regulation problems, cardiac problems, balance or gait deficits, neurological problems. Is patient considered at risk for falls: yes Fall Risk Actions Taken: No action needed - Behavioral Observations During evaluation process patient: was pleasant, was cooperative, able to answer questions - Treatment / Educational Needs: Treatment/Education Needs: Treatment consisted of patient education on the role of the Speech Pathologist. Patient's plan of care and golas were communicated as well as scheduling and attendance policies. Recommendations for initial home program were shared. Patient demonstrated understanding and verbalized agreement. - Impression/Summary Laryngeal Penetration: Yes - penetration seen with all trial consistencies du ring the swallow, as well as penetration of mixed residuals after the swallow, silent Tracheal Aspiration: yes - aspiration seen with residuals of puree trial x1 during second swallow, silent Effective compensatory strategies: throat clear & reswallow, hard swallow Patient presents with: Oral-Pharyngeal dysph. - moderate Risk of Aspiration: Moderate Risk of nutritional compromise: None Evaluation and Findings: Patient demonstrates overall improved swallowing function as compared to previous study. At this time, the patient demonstrates moderate aspiration risk and moderate oral and pharyngeal phase dysphagia. While there is some reduced movement regarding laryngeal elevation and epiglottic inversion, timing and residue appear to be bigger contributers to aspiration risk. The patient is demonstrating consistent penetration during the swallow, however, aspiration occured with residuals after the swallow when the patient was trying to clear residuals. Material was seen to enter the airway prior to the initiation of the swallow and prior to airway closure. All penetration/aspiration events were silent. - Recommendations Solid diet recommendations: Pureed, Mechanical Soft - very soft, fork mashable, no meats or breads Liquid Diet Modification: Thin Strict aspiration precautions: Yes Pt/Family education and followup with MD: Yes Dysphagia therapy with WATCH TRAIN INSPECTOR: f/u with current thera. Recommended techniques: Fully Upright During Meal, Small Bites and Sips Information, Precautions and Recommendations: Patient (Written), Patient (Verbal), Family Member (Written), Family Member (Verbal) - Time Total Time: 30 - Plan of Care Strategies to optimize patient understanding include:: ongoing assessment of educational needs, implementation of educational strategies, and re-education. - - -: Thank you for the opportunity to work with this patient and his/her family. Should you have any questions about this patient's plan or progress, I can be reached at [phone].
--- NOTE | 2020-01-21 09:36 | RADIOLOGY REPORT (SQ) ---
EXAM DESCRIPTION: COOKIE SWALLOW IMAGES COMPLETED DATE/TIME: 01/21/2020 8:49 am REASON FOR STUDY: DYSPHAGIA (R13.10) R13.10 DYSPHAGIA, UNSPECIFIED COMPARISON: Cookie swallow 12/02/2019. . TECHNIQUE: Videofluoroscopic swallowing examination was performed in conjunction with speech patholo gy. Videofluoroscopic imaging was obtained and reviewed and these are the findings: RADIATION DOSE: Fluoro time 3.19 minutes 1 images saved to PACS. LIMITATIONS: None FINDINGS: The patient was brought into the fluoro room and placed upright on a modified barium swall ow chair. The patient was then given multiple consistencies mixed with barium to swallow under live fluoroscopic video guidance. According to the Speech Pathologist there was penetration seen with thi n, nectar thick and pureed consistencies. Trace aspiration was also seen from pureed consistency. Pl ease refer to the speech pathology report for further details. IMPRESSION: TRACE ASPIRATION WITH PUREED CONSISTENCY. LARYNGEAL PENETRATION WITH THIN, NECTAR THICK AND PUREED. PLEASE SEE SPEECH PATHOLOGIST REPORT FOR OTHER FINDINGS AND RECOMMENDATIONS. COMMENT: NONE Quality ID [id number]: Final reports for procedures using fluoroscopy that document radiation exposure gemma kali, or exposure time and number of fluorographic images (if radiation exposure indices are not avail able) TECHNICAL DOCUMENTATION: JOB ID: [id number] 2010 [employer]- All Rights Reserved Reading location - IP/workstation name: [email or web address] [id number]
== END ==
LOC: RAD 07:55
PROVIDERS: ATTEND Psychiatry & Neurology Neurology
DX: R13.10 Dysphagia, unspecified (principal)
CPT/HCPCS: 74230

== ENCOUNTER 2020-01-30 11:24 | Inpatient (IN) | payer MEDICAID ==
[2020-01-30] MEDS ORDERED: ACETAMINOPHEN 325 MG TABLET PO ONE (12:10)
[2020-01-30] MEDS ORDERED: CEFEPIME INJ 1 GM VIAL IM ONE (12:10)
--- NOTE | 2020-01-30 12:16 | ER Document Report ---
ED General - General Chief Complaint: Problem with Feeding Tube Stated Complaint: PROBLEM WITH FEEDING TUBE Time Seen by Provider: 01/30/20 11:59 Notes: 49-year-old female status post stroke with trach and PEG tube brought in for generalized weakness. She has no specific symptoms other than generalized weakness. She specifically denies cough shortness of breath nausea vomiting diarrhea chest pain or belly pain. She has severe hemiparesis on the left side is in physical therapy. Her home nurse noted possibly discharge from G-tube and her GI who would not see her secondary to her fever due to COVID concerns, prescribed Keflex and she is had 2 doses. Temp was elevated at home. TRAVEL OUTSIDE OF THE [place] IN LAST 30 DAYS: No - Related Data Allergies/Adverse Reactions: No Known Allergies Allergy (Verified 12/26/19 20:31) Past Medical History - General Information source: Patient - Social History Smoking Status: Former Smoker Family History: Reviewed & Not Pertinent, Hypertension, Malignancy, Other - Lupus - Past Medical History Cardiac Medical History: Reports: Hx Hypertension Denies: Hx Coronary Artery Disease, Hx Heart Attack Pulmonary Medical History: Denies: Hx Asthma, Hx Bronchitis, Hx COPD, Hx Pneumonia Neurological Medical History: Denies: Hx Cerebrovascular Accident, Hx Seizures Renal/ Medical History: Denies: Hx Peritoneal Dialysis Musculoskeletal Medical History: Reports Hx Arthritis Psychiatric Medical History: Denies: Hx Depression Past Surgical History: Reports: Hx Section - Immunizations Immunizations up to date: No Hx Diphtheria, Pertussis, Tetanus Vaccination: Yes Review of Systems - Review of Systems Notes: REVIEW OF SYSTEMS GEN: Generalized weakness and fever s ENT: Denies sore throat, nasal discharge, ear pain EYES: Denies blurry vision, eye pain, discharge CV: Denies chest pain, palpitations, edema RESP: Denies cough, shortness of breath, wheezing GI: Denies abdominal pain, nausea, vomiting, diarrhea MSK: Denies joint pain/swelling, edema, SKIN: Denies rash, skin lesions LYMPH: Denies swollen glands/lymph nodes NEURO: Denies headache, focal weakness or numbness, dizziness PSYCH: Denies depression, suicidal or homicidal ideation PHYSICAL EXAMINATION General: No acute distress, well-nourished Head: Atraumatic, normocephalic ENT: Trach site appears clean with mild granulation tissue and some clear discharge but nothing purulent and no bleeding. Passy-Jean valve in place patient is able to speak. T Eyes: Conjunctiva normal, pupils equal, lids normal Neck: No JVD, supple, no guarding CVS: Normal rate, regular rhythm, no murmurs Resp: No resp distress, equal and normal breath sounds bilaterally GI: Nondistended, soft, no tenderness to palpation, no rebound or guarding Ext: No deformities, no edema, normal range of motion in upper and lower ex. Granulation at the left upper quadrant G-tube site with very small amount of greenish-yellow discharge without abscess or fluctuance or surrounding redness. T Back: No CVA or midline TTP Skin: No rash, warm Lymphatic: No lymphadeopathy noted Neuro: Awake, alert. Facial asymmetry and left-sided weakness chronic. Physical Exam - Vital signs Vitals: Temp Pulse Resp BP Pulse Ox 98.4 F 112 H 16 131/87 H 94 01/30/20 12:00 01/30/20 12:00 01/30/20 12:00 01/30/20 12:00 01/30/20 12:00 Course - Re-evaluation Re-evalutation: 01/30/20 15:56 Patient presents with fever and hypotension. She is had UTIs before. Has a trach and a PEG. On careful inspection I do not think her trach or PEG are infected. She will be tested for COVID will fluid bolus her and start cefepime for likely UTI sepsis She did have one episode of hypotension and a slight elevated lactate. She got a full sepsis fluid bolus and did well. Her COVID is pending. She has been admitted to the hospitalist for further evaluation management 01/30/20 15:57 Discussed with Cecil - Vital Signs Vital signs: Temp Pulse Resp BP Pulse Ox 98.1 F 112 H 14 105/65 100 01/30/20 13:50 01/30/20 12:00 01/30/20 14:01 01/30/20 14:01 01/30/20 14:01 - Laboratory Result Diagrams: 01/30/20 12:05 01/30/20 12:05 Laboratory results interpreted by me: 01/30/20 01/30/20 01/30/20 12:05 12:05 12:05 Hct 35.7 L RDW 15.6 H Taylor % (Auto) 14.3 H Sodium 135.6 L Lactic Acid 2.4 H Calcium 8.3 L Albumin 3.2 L Urine Urobilinogen Ur Leukocyte Esterase 01/30/20 12:14 Hct RDW Taylor % (Auto) Sodium Lactic Acid Calcium Albumin Urine Urobilinogen 4.0 H Ur Leukocyte Esterase LARGE H - Diagnostic Test Radiology reviewed: Image reviewed, Reports reviewed Critical Care Note - Critical Care Note Total time excluding time spent on procedures (mins): 31 Comments: The above patient is critically ill. Not including procedures, but including direct re-evaluations, speaking with patient and/or consultants, interpreting results, and documenting, I spent the total amount of minute listed listed above on critical care time Discharge - Discharge Clinical Impression: Sepsis Qualifiers: Sepsis type: sepsis due to unspecified organism Sepsis acute organ dysfunction status: unspecified Qualified Code(s): A41.9 - Sepsis, unspecified organism Condition: Fair Disposition: ADMITTED INPATIENT Admitting Provider: Beatrice (Hospitalist) Unit Admitted: Medical Floor
[2020-01-30 12:22] LABS: ABSOLUTE LYMPHOCYTES (AUTO) 1.1 10^3/uL (0.5-4.7); ABSOLUTE MONOCYTES (AUTO) 1.1 10^3/uL (0.1-1.4); ABSOLUTE NEUT (AUTO) 5.4 10^3/uL (1.7-8.2); BASOPHILS % (AUTO) 0.5 % (0-2); EOSINOPHILS % (AUTO) 0.1 % (0-6); HEMATOCRIT 35.7 % (36.0-47.0); HEMOGLOBIN 12.1 g/dL (12.0-15.5); LYMPHOCYTES % (AUTO) 14.8 % (13-45); MEAN CORPUSCULAR HEMOGLOBIN 28.9 pg (27.0-33.4); MEAN CORPUSCULAR HGB CONC 33.9 g/dL (32.0-36.0); MEAN CORPUSCULAR VOLUME 85 fl (80-97); MONOCYTES % (AUTO) 14.3 % (3-13); PLATELET COUNT 281 10^3/uL (150-450); RED BLOOD COUNT 4.19 10^6/uL (3.72-5.28); RED CELL DISTRIBUTION WIDTH 15.6 % (11.5-14.0); SEGMENTED NEUTROPHILS % (AUTO) 70.3 % (42-78); TOTAL CELLS COUNTED % (AUTO) 100 %; WHITE BLOOD COUNT 7.6 10^3/uL (4.0-10.5)
[2020-01-30 12:23] LABS: VENOUS BLOOD BASE EXCESS 0.6 mmol/L; VENOUS BLOOD HCO3 25.5 mmol/L (20-32); VENOUS BLOOD PCO2 41.7 mmHg (35-63); VENOUS BLOOD PH 7.4 (7.30-7.42)
[2020-01-30 12:29] LABS: INTERNATIONAL RATION (INR) 1.13; PROTHROMBIN TIME 14.6 SEC (11.4-15.4)
[2020-01-30 12:31] LABS: APPEARANCE,URINE CLOUDY; BILIRUBIN,URINE NEGATIVE (NEGATIVE); COLOR,URINE YELLOW; GLUCOSE, URINE NEGATIVE (NEGATIVE); KETONES,URINE NEGATIVE (NEGATIVE); LEUKOCYTE ESTERASE,URINE LARGE (NEGATIVE); NITRITE,URINE NEGATIVE (NEGATIVE); PROTEIN,URINE NEGATIVE (NEGATIVE); URINE SPECIFIC GRAVITY 1.009
[2020-01-30 12:40] LABS: ALBUMIN 3.2 g/dL (3.5-5.0); ALKALINE PHOSPHATASE 105 U/L (38-126); ANION GAP 8 (5-19); ASPARTATE AMINO TRANSFERASE 25 U/L (14-36); BILIRUBIN,DIRECT 0.2 mg/dL (0.0-0.4); BILIRUBIN,TOTAL 0.7 mg/dL (0.2-1.3); BLOOD UREA NITROGEN 9 mg/dL (7-20); CALCIUM 8.3 mg/dL (8.4-10.2); CARBON DIOXIDE 25 mmol/L (22-30); CHLORIDE 103 mmol/L (98-107); GLUCOSE 105 mg/dL (75-110); POTASSIUM 3.7 mmol/L (3.6-5.0); TOTAL PROTEIN 6.7 g/dL (6.3-8.2)
[2020-01-30] MEDS: RINGERS SOLUTION,LACTATED 1,000 ML IV PRN ×2 (12:56→14:16)
--- NOTE | 2020-01-30 15:12 | RADIOLOGY REPORT (SQ) ---
EXAM DESCRIPTION: CHEST SINGLE VIEW IMAGES COMPLETED DATE/TIME: 01/30/2020 2:02 pm REASON FOR STUDY: sepsis COMPARISON: 12/06/2017 EXAM PARAMETERS: NUMBER OF VIEWS: One view. TECHNIQUE: Single frontal radiographic view of the chest acquired. RADIATION DOSE: NA LIMITATIONS: None. FINDINGS: LUNGS AND PLEURA: No opacities, masses or pneumothorax. No pleural effusion. MEDIASTINUM AND HILAR STRUCTURES: No masses. Contour normal. HEART AND VASCULAR STRUCTURES: Heart normal in size. Normal vasculature. BONES: No acute findings. HARDWARE: A tracheostomy sheath projects in the midline over the tracheal air shadow. OTHER: No other significant finding. IMPRESSION: No evidence of acute cardiopulmonary abnormality. Tracheostomy sheath projects in the m idline over the tracheal air shadow. TECHNICAL DOCUMENTATION: JOB ID: [id number] 2010 [employer]- All Rights Reserved Reading location - IP/workstation name: [email or web address]
[2020-01-30] MEDS ORDERED: PROMETHAZINE HCL INJ 25 MG/1 ML VIAL IV PRN (15:29)
[2020-01-30] MEDS ORDERED: ACETAMINOPHEN 325 MG TABLET PO PRN (15:29)
[2020-01-30] MEDS ORDERED: IPRATROPIUM/ALBUTEROL 0.5-2.5 MG/3 ML AMPUL NEB PRN (15:29)
[2020-01-30] MEDS ORDERED: OXYCODONE-ACETAMINOPHEN 5-325 MG TABLET PO PRN (15:29)
[2020-01-30] MEDS ORDERED: NORMAL SALINE 1000 ML 1,000 ML IV PRN (15:29)
[2020-01-30] MEDS ORDERED: TEMAZEPAM 7.5 MG CAPSULE PO PRN (15:29)
[2020-01-30] MEDS ORDERED: MAGNESIUM HYDROXIDE SUSP 30 ML UDCUP PO PRN (15:29)
[2020-01-30] MEDS ORDERED: ONDANSETRON HCL INJ/PF 4 MG/2 ML SDV IV PRN (15:29)
[2020-01-30] MEDS ORDERED: LACTOSE REDUCED FOOD PEG SCH (15:45)
[2020-01-30] MEDS ORDERED: [UNRECOGNIZED DRUG - OTHER] PEG SCH (15:45)
[2020-01-30] MEDS ORDERED: FIBER PEG SCH (15:45)
[2020-01-30] MEDS: DOCUSATE SODIUM 100 MG CAPSULE PO SCH (17:57)
[2020-01-30] MEDS: CEFTRIAXONE 1 GM/D5W RTU 1 GM/50 ML RTUPB IV SCH (17:57)
[2020-01-30] MEDS ORDERED: OMEGA GT SCH (18:00)
--- NOTE | 2020-01-30 18:21 | EKG REPORT ---
SEVERITY:- BORDERLINE ECG - SINUS RHYTHM LOW VOLTAGE IN FRONTAL LEADS BORDERLINE PROLONGED QT INTERVAL : Confirmed by: Mario Cruz MD 30-Jan-2020 18:20:58
--- NOTE | 2020-01-30 18:40 | PDOC H&P ---
History of Present Illness Admission Date/PCP: 01/30/20 14:02 DUGLAS WOMACK MD History of Present Illness: PACO KITCHEN is a 49 year old female status left MCA with right upper ex tremity deficit and dysarthria, status post PEG placement for persistent dysphagia secondary to CVA presenting to ED complaining of generalized weakness, fever, and also was told by his home home nurse that her PEG tube was clogged and was expressing purulent material. She was advised to to ED and get it evaluated. Otherwise patient denies any shortness of breath, nausea, vomiting, diarrhea, constipation, headache, any new focal neurological symptoms, stating that she is able to eat properly and has passed her swallow eval and outpatient, and would like for her PEG tube to be removed. In ED she was noted to be hypotensive, febrile and UA positive for leukocyte esterase. Start on volume r esuscitation and IV antibiotics and hospital was consulted for admission. Past Medical History Cardiac Medical History: Reports: Hypertension Denies: Coronary Artery Disease, Myocardial Infarction Pulmonary Medical History: Denies: Asthma, Bronchitis, Chronic Obstructive Pulmonary Disease (COPD), Pneumonia Neurological Medical History: Denies: Seizures Musculoskeltal Medical History: Reports: Arthritis Psychiatric Medical History: Denies: Depression Hematology: Reports: Anemia - on iron Past Surgical History Past Surgical History: Reports: Section Social History Smoking Status: Unknown if Ever Smoked Frequency of Alcohol Use: Rare Hx Recreational Drug Use: No Drugs: None Hx Prescription Drug Abuse: No Family History Family History: Reviewed & Not Pertinent, Hypertension, Malignancy, Other - Lupus Parental Family History Reviewed: Yes Children Family History Reviewed: Yes Sibling(s) Family History Reviewed.: Yes Medication/Allergy Home Medications: Atorvastatin Calcium [Lipitor 40 mg Tablet] 40 mg PO QHS 12/01/19 Cetirizine HCl [Zyrtec] 10 mg PO DAILY 12/01/19 Docusate Sodium 50 mg PO BID 12/01/19 Fluoxetine HCl [Prozac 20 mg Capsule] 20 mg PO DAILY 12/01/19 Fluticasone Propionate [Flonase Nasal [place] 50 Mcg/[place]ia 16 gm] 2 sprays NASL DAILY 12/01/19 Folic Acid 1 mg PO DAILY 12/01/19 Lansoprazole [Prevacid 15 mg Odt Tablet] 15 mg PO Q12 12/01/19 Linaclotide [Linzess 145 Mcg Capsule] 145 mcg PO QAM 12/01/19 Meloxicam [Mobic] 15 mg PO DAILY 12/01/19 Modafinil [Provigil 100 mg Tablet] 100 mg PO BID 12/01/19 [place]-3 160mg/0.5ml 25 ml GT BID 12/01/19 Quetiapine Fumarate [Seroquel] 25 mg PO QAM 12/01/19 Scopolamine Hydrobromide [Transderm-Scop 1.5 mg Patch] 1 patch TD Q3DAYS 12/01/19 Sennosides [Senna] 17.2 mg PO QHS 12/01/19 Tramadol HCl [Ultram 50 mg Tablet] 50 mg PO Q6HP PRN 12/01/19 Lactose-Reduced Food/Fiber [Jevity 1.5 Malik Liquid] 45 ml PEG CONTINUOUS #1 each 12/06/19 Cephalexin Monohydrate [Keflex 500 mg Capsule] 500 mg PO Q12 01/30/20 Hydroxychloroquine Sulfate [Plaquenil 200 mg Tablet] 200 mg PO BID 01/30/20 Lisinopril/Hydrochlorothiazide [Lisinopril-Hctz 20-12.5 mg Tab] 1 each PO DAILY 01/30/20 Pregabalin [Lyrica 50 mg Capsule] 50 mg PO TID 01/30/20 Allergies/Adverse Reactions: No Known Allergies Allergy (Verified 12/26/19 20:31) Review of Systems Review of Systems: as per hpi Physical Exam Vital Signs: Temp Pulse Resp BP Pulse Ox 98.1 F 112 H 16 96/71 L 100 01/30/20 13:50 01/30/20 12:00 01/30/20 16:01 01/30/20 16:01 01/30/20 16:01 Intake & Output 01/29/20 01/30/20 01/31/20 06:59 06:59 06:59 Intake Total 2100 Balance 2100 Weight 85.729 kg General appearance: PRESENT: no acute distress, well-developed, well-nourished, other - Trach collar in place Head exam: PRESENT: atraumatic, normocephalic Respiratory exam: PRESENT: clear to auscultation latesha. ABSENT: rales, rhonchi, wheezes Cardiovascular exam: PRESENT: RRR. ABSENT: diastolic murmur, rubs, systolic murmur GI/Abdominal exam: PRESENT: normal bowel sounds, soft, other - PEG tube in place. Neurological exam: PRESENT: alert, awake, oriented to person, oriented to place, oriented to time, oriented to situation, CN II-XII grossly intact, motor sensory deficit - Left upper extremity strength 3/5. Dysarthria., aphasic Results Laboratory Results: 01/30/20 12:05 01/30/20 12:05 01/30/20 01/30/20 01/30/20 12:05 12:05 12:05 WBC 7.6 RBC 4.19 Hgb 12.1 Hct 35.7 L MCV 85 MCH 28.9 MCHC 33.9 RDW 15.6 H Plt Count 281 Seg Neutrophils % 70.3 VBG pH 7.40 VBG pCO2 41.7 VBG HCO3 25.5 VBG Base Excess 0.6 Sodium 135.6 L Potassium 3.7 Chloride 103 Carbon Dioxide 25 Anion Gap 8 BUN 9 Creatinine 0.57 Est GFR ( Amer) > 60 Glucose 105 Lactic Acid Calcium 8.3 L Total Bilirubin 0.7 AST 25 Alkaline Phosphatase 105 Total Protein 6.7 Albumin 3.2 L Urine Color Urine Appearance Urine pH Ur Specific [place] Urine Protein Urine Glucose (UA) Urine Ketones Urine Blood Urine Nitrite Ur Leukocyte Esterase Urine WBC (Auto) Urine RBC (Auto) 01/30/20 01/30/20 12:05 12:14 WBC RBC Hgb Hct MCV MCH MCHC RDW Plt Count Seg Neutrophils % VBG pH VBG pCO2 VBG HCO3 VBG Base Excess Sodium Potassium Chloride Carbon Dioxide Anion Gap BUN Creatinine Est GFR ( Amer) Glucose Lactic Acid 2.4 H Calcium Total Bilirubin AST Alkaline Phosphatase Total Protein Albumin Urine Color YELLOW Urine Appearance CLOUDY Urine pH 7.0 Ur Specific [place] 1.009 Urine Protein NEGATIVE Urine Glucose (UA) NEGATIVE Urine Ketones NEGATIVE Urine Blood NEGATIVE Urine Nitrite NEGATIVE Ur Leukocyte Esterase LARGE H Urine WBC (Auto) 147 Urine RBC (Auto) 7 Impressions: Chest X-Ray 01/30/20 13:02 IMPRESSION: No evidence of acute cardiopulmonary abnormality. Tracheostomy sheath projects in the midline over the tracheal air shadow. Assessment and Plan - Diagnosis (1) SIRS (systemic inflammatory response syndrome) Is this a current diagnosis for this admission?: Yes Plan: Likely source urine. Peesented with tachycardia, hypotension, fever. WBC WNL. UA positive for leukocyte esterase. Volume decision guided by volume status, trend lactic acid, monitor vitals, broad-spectrum empiric IV antibiotics. (2) CVA (cerebral vascular accident) Qualifiers: Laterality of affected vessel: left Is this a current diagnosis for this admission?: Yes Plan: History of left MCA stroke. Persistent right upper extremity weakness and dysarthria. Monitor vitals. Continue PT OT. Resume antiplatelets, statins. Optimize BP. (3) Dysphagia Qualifiers: Is this a current diagnosis for this admission?: Yes Plan: Secondary to CVA. Patient had failed modified barium swallow and previous hospitalization. Stating that she is able to eat now and recently had a modified barium swallow and outpatient which he passed. Patient would like for PEG tube to be removed. (4) UTI (urinary tract infection) Qualifiers: Urinary tract infection type: acute cystitis Is this a current diagnosis for this admission?: Yes Plan: Likely due to gram-negative rods including E. coli. Empiric IV antibiotics. Urine culture.
[2020-01-30] MEDS ORDERED: METOPROLOL TARTRATE PF/INJ 5 MG/5 ML SDV IV PRN (18:42)
[2020-01-30] MEDS: HYDROXYCHLOROQUINE SULFATE 200 MG TABLET PO SCH (18:43)
[2020-01-30] MEDS: NORMAL SALINE 1000 ML 1,000 ML IV PRN (19:07)
[2020-01-30] MEDS: ATORVASTATIN CALCIUM 40 MG TABLET PO SCH (21:21)
[2020-01-30] MEDS: FAMOTIDINE 20 MG TABLET PO SCH (21:21)
[2020-01-30] MEDS: PREGABALIN 50 MG CAPSULE PO SCH (21:21)
[2020-01-30] MEDS ORDERED: (PENDING PHARMACY ID) (Sennosides [Senna] 17.2 MG) PO SCH (22:00)
[2020-01-31] MEDS: NORMAL SALINE 1000 ML 1,000 ML IV PRN ×2 (04:10→13:57)
[2020-01-31 04:48] LABS: HEMATOCRIT 29.4 % (36.0-47.0); MEAN CORPUSCULAR HEMOGLOBIN 28.9 pg (27.0-33.4); MEAN CORPUSCULAR HGB CONC 33.9 g/dL (32.0-36.0); MEAN CORPUSCULAR VOLUME 85 fl (80-97); PLATELET COUNT 260 10^3/uL (150-450); RED BLOOD COUNT 3.45 10^6/uL (3.72-5.28); RED CELL DISTRIBUTION WIDTH 15.6 % (11.5-14.0); WHITE BLOOD COUNT 5.4 10^3/uL (4.0-10.5)
[2020-01-31 05:11] LABS: ALBUMIN 2.5 g/dL (3.5-5.0); ALKALINE PHOSPHATASE 85 U/L (38-126); ANION GAP 5 (5-19); ASPARTATE AMINO TRANSFERASE 22 U/L (14-36); BILIRUBIN,TOTAL 0.5 mg/dL (0.2-1.3); BLOOD UREA NITROGEN 7 mg/dL (7-20); CALCIUM 7.8 mg/dL (8.4-10.2); CARBON DIOXIDE 26 mmol/L (22-30); CHLORIDE 105 mmol/L (98-107); GLUCOSE 79 mg/dL (75-110); POTASSIUM 3.5 mmol/L (3.6-5.0); TOTAL PROTEIN 5.6 g/dL (6.3-8.2)
[2020-01-31 05:17] LABS: ABSOLUTE LYMPHOCYTES# (MANUAL) 1.4 10^3/uL (0.5-4.7); ABSOLUTE MONOCYTES # (MANUAL) 0.5 10^3/uL (0.1-1.4); BAND NEUTROPHILS % (MANUAL) 5 % (3-5); BASOPHILS % (MANUAL) 0 % (0-2); EOSINOPHILS % (MANUAL) 1 % (0-6); LYMPHOCYTES % (MANUAL) 26 % (13-45); MONOCYTES % (MANUAL) 10 % (3-13); SEGMENTED NEUTROPHILS % (MAN) 58 % (42-78); TOTAL CELLS COUNTED 100
[2020-01-31 05:19] LABS: OVALOCYTES 1+; PLATELET COMMENT ADEQUATE
[2020-01-31 05:20] LABS: ANISOCYTOSIS SLIGHT
[2020-01-31] MEDS: PREGABALIN 50 MG CAPSULE PO SCH ×3 (05:33→21:36)
[2020-01-31] MEDS ORDERED: MODAFINIL 100 MG TABLET PO SCH (07:00)
[2020-01-31] MEDS ORDERED: (PENDING PHARMACY ID) (Linaclotide 145 MCG) PO SCH (08:00)
[2020-01-31] MEDS ORDERED: QUETIAPINE FUMARATE 25 MG TABLET PO SCH (08:00)
[2020-01-31] MEDS: MODAFINIL 100 MG TABLET PO SCH ×2 (08:38→17:00)
[2020-01-31] MEDS ORDERED: SCOPOLAMINE HYDROBROMIDE 1.5 MG PATCH.TD72 TD SCH (10:00)
[2020-01-31] MEDS ORDERED: (PENDING PHARMACY ID) (Lisinopril/Hydrochlorothiazide [Lisinopril-Hctz 20-12.5 Mg Tab] 1 E PO SCH (10:00)
[2020-01-31] MEDS: ENOXAPARIN SODIUM INJ 40 MG/0.4 ML DISP.SYRIN SUBCUT SCH (10:58)
[2020-01-31] MEDS: DOCUSATE SODIUM 100 MG CAPSULE PO SCH ×2 (10:59→17:28)
[2020-01-31] MEDS: FLUTICASONE NASAL SPRAY 50 MCG/SPRY 120 SPRAY/16 GM NASL SCH (10:59)
[2020-01-31] MEDS: LISINOPRIL 10 MG TABLET PO SCH (11:00)
[2020-01-31] MEDS: FOLIC ACID 1 MG TABLET PO SCH (11:01)
[2020-01-31] MEDS: FAMOTIDINE 20 MG TABLET PO SCH ×2 (11:01→21:36)
[2020-01-31] MEDS: HYDROCHLOROTHIAZIDE 12.5 MG TABLET PO SCH (11:01)
[2020-01-31] MEDS: FLUOXETINE HCL 20 MG CAPSULE PO SCH (11:01)
--- NOTE | 2020-01-31 11:01 | Operative Report ---
Operative Report DATE OF SURGERY: 01/31/20 PREOPERATIVE DIAGNOSIS: 1. Status post CVA with PEG tube. 2. Permanent trach eostomy POSTOPERATIVE DIAGNOSIS: Same, exhausted feeding tube OPERATION: Removal of gastrostomy tube SURGEON: JUSTINA CABRERA ANESTHESIA: Other - None TISSUE REMOVED OR ALTERED: See below COMPLICATIONS: None INTRAOPERATIVE FINDINGS: See below PROCEDURE: The patient was seen at the request of Dr. Chen. The patient has an existing 23 [place] Ponsky pull out gastrostomy tube. The patient was informed of the planned procedure for G-tube pull out at bedside At bedside on the fifth floor, the Ponsky pull out tube was removed uneventfully using a brisk traction method. Full in abdominal wall covered with 4 x 4's. Patient tolerated procedure well. Instructions: 1. Explained to patient and nurse there will be drainage for the next several days and to change the 4 x 4 as needed 2. Surgery will sign off; reconsult as clinically indicated.
[2020-01-31] MEDS: QUETIAPINE FUMARATE 25 MG TABLET PO SCH (11:10)
[2020-01-31] MEDS: HYDROXYCHLOROQUINE SULFATE 200 MG TABLET PO SCH ×2 (11:11→17:28)
--- NOTE | 2020-01-31 14:54 | PDOC PROGRESS REPORT ---
Subjective Progress Note for:: 01/31/20 Subjective:: PACO KITCHEN is a 49 year old female status left MCA with right upper extremity deficit and dysarthria, status post PEG placement for persistent dysphagia secondary to CVA presenting to ED complaining of generalized weakness, fever, and also was told by his home home nurse that her PEG tube was clogged and was expressing purulent material. She was advised to to ED and get it evaluated. Otherwise patient denies any shortness of breath, nausea, vomiting, diarrhea, constipation, headache, any new focal neurological symptoms, stating that she is able to eat properly and has passed her swallow eval and outpatient, and would like for her PEG tube to be removed. In ED she was noted to be hypotensive, febrile and UA positive for leukocyte esterase. Start on volume resuscitation and IV antibiotics and hospital was consulted for admission. 01/23/2020. No acute events overnight. Saw patient this morning, very excited that her PEG tube is going to be removed. I had consulted speech therapy for evaluation of her dysphagia before removal of PEG tube, I got a call from speech therapy that patient had modified barium swallow as outpatient which he passed and she is able to eat now and is safe to remove her PEG tube. Patient denies any fever, chills, nausea, vomiting, diarrhea, constipation or any urinary symptoms. Reason For Visit: UTI,SIRS Physical Exam Vital Signs: Temp Pulse Resp BP Pulse Ox 98.1 F 79 18 137/68 H 100 01/31/20 11:13 01/31/20 11:13 01/31/20 11:13 01/31/20 11:13 01/31/20 11:13 Intake & Output 01/30/20 01/31/20 02/01/20 06:59 06:59 06:59 Intake Total 4762 1000 Output Total 500 850 Balance 4262 150 Weight 77.8 kg General appearance: PRESENT: no acute distress, well-developed, well-nourished Head exam: PRESENT: atraumatic, normocephalic Neck exam: PRESENT: tracheostomy Respiratory exam: PRESENT: clear to auscultation latesha, wheezes. ABSENT: rales, rhonchi Cardiovascular exam: PRESENT: RRR. ABSENT: diastolic murmur, rubs, systolic murmur GI/Abdominal exam: PRESENT: normal bowel sounds, soft, other - PEG tube in place.. ABSENT: distended, guarding, mass, organolmegaly, rebound, tenderness Neurological exam: PRESENT: alert, awake, oriented to person, oriented to place, oriented to time, oriented to situation, CN II-XII grossly intact, motor sensory deficit - Dysarthria, right upper extremity weakness. Skin exam: PRESENT: dry, intact, warm. ABSENT: cyanosis, rash Results Laboratory Results: 01/31/20 04:04 01/31/20 04:04 01/30/20 01/30/20 01/31/20 18:33 23:05 04:04 WBC 5.4 RBC 3.45 L Hgb 10.0 L D Hct 29.4 L MCV 85 MCH 28.9 MCHC 33.9 RDW 15.6 H Plt Count 260 Seg Neutrophils % Not Reportable Sodium Potassium Chloride Carbon Dioxide Anion Gap BUN Creatinine Est GFR ( Amer) Glucose Lactic Acid 1.4 0.9 Calcium Magnesium Total Bilirubin AST Alkaline Phosphatase Total Protein Albumin 01/31/20 04:04 WBC RBC Hgb Hct MCV MCH MCHC RDW Plt Count Seg Neutrophils % Sodium 135.5 L Potassium 3.5 L Chloride 105 Carbon Dioxide 26 Anion Gap 5 BUN 7 Creatinine 0.48 L Est GFR ( Amer) > 60 Glucose 79 Lactic Acid Calcium 7.8 L Magnesium 1.6 Total Bilirubin 0.5 AST 22 Alkaline Phosphatase 85 Total Protein 5.6 L Albumin 2.5 L Impressions: Chest X-Ray 01/30/20 13:02 IMPRESSION: No evidence of acute cardiopulmonary abnormality. Tracheostomy she ath projects in the midline over the tracheal air shadow. Assessment and Plan - Diagnosis (1) SIRS (systemic inflammatory response syndrome) Is this a current diagnosis for this admission?: Yes Plan: Improved. Afebrile. WBC WNL. Vitals WNL. Likely source urine. Peesented with tachycardia, hypotension, fever. WBC WNL. UA positive for leukocyte esterase. Volume decision guided by volume status, trend lactic acid, monitor vitals, broad-spectrum empiric IV antibiotics. (2) CVA (cerebral vascular accident) Qualifiers: Laterality of affected vessel: left Is this a current diagnosis for this admission?: Yes Plan: History of left MCA stroke. Persistent right upper extremity weakness and dysarthria. Monitor vitals. Continue PT OT. Resume antiplatelets, statins. Optimize BP. (3) Dysphagia Qualifiers: Is this a current diagnosis for this admission?: Yes Plan: Secondary to CVA. Patient had failed modified barium swallow and previous hospitalization. Stating that she is able to eat now and recently had a modified barium swallow and outpatient which he passed. Patient would like for PEG tube to be removed. I have consulted surgery to remove her (4) UTI (urinary tract infection) Qualifiers: Urinary tract infection type: acute cystitis Is this a current diagnosis for this admission?: Yes Plan: Likely due to gram-negative rods including E. coli. Empiric IV antibiotics. Urine culture. (5) COPD (chronic obstructive pulmonary disease) Qualifiers: COPD type: COPD with acute exacerbation Qualified Code(s): J44.1 - Chronic obstructive pulmonary disease with (acute) exacerbation Is this a current diagnosis for this admission?: Yes Plan: History of non-oxygen dependent COPD. Former smoker. Not hypoxia or wheezing on physical examination. DuoNebs, LABA, ICS, LABA. Flutter valve and incentive parameter.
--- NOTE | 2020-01-31 15:19 | RADIOLOGY REPORT (SQ) ---
EXAM DESCRIPTION: CT HEAD WITHOUT IMAGES COMPLETED DATE/TIME: 01/31/2020 3:07 pm REASON FOR STUDY: increase heaviness to bilateral legs COMPARISON: CT of the head without contrast from 08/11/2015. TECHNIQUE: Axial images acquired through the brain without intravenous contrast. Images reviewed wi th bone, brain and subdural windows. Additional sagittal and coronal reconstructions were generated. Images stored on PACS. All CT scanners at this facility use dose modulation, iterative reconstruction, and/or weight based d osing when appropriate to reduce radiation dose to as low as reasonably achievable (ALARA). [facility]: Dose Right [facility]: CareDose [facility]: Dose Right [facility]: Teradose 4D [facility]: Anytime DD RADIATION DOSE: CT Rad equipment meets quality standard of care and radiation dose reduction techniq ues were employed. CTDIvol: 48.5 mGy. DLP: 854 mGy-cm. LIMITATIONS: None. FINDINGS: There is no acute intracranial hemorrhage, vascular territorial infarct, extra-axial fluid collection, mass effect or midline shift. The roland-white matter differentiation is preserved. The caliber of the ventricles is concordant with the degree of sulcation. There is no effacement of the cerebral sulci or basal subarachnoid cisterns. The orbits and globes are intact. The paranasal nasal sinuses are clear. There is no fracture of th e calvarium. IMPRESSION: No acute intracranial abnormality. EVIDENCE OF ACUTE STROKE: NO. COMMENT: Quality ID # [id number]: Final reports with documentation of one or more dose reduction techniques (e.g., Automated exposure control, adjustment of the mA and/or kV according to patient size, use of iterative reconstruction technique) TECHNICAL DOCUMENTATION: JOB ID: [id number] 2010 [employer]- All Rights Reserved Reading location - IP/workstation name: [email or web address]
[2020-01-31] MEDS: PREDNISONE 20 MG TABLET PO SCH (17:28)
[2020-01-31] MEDS: FLUTICASONE/VILANTEROL 200-25 MCG/DOSE IH SCH (17:29)
[2020-01-31] MEDS: CEFTRIAXONE 1 GM/D5W RTU 1 GM/50 ML RTUPB IV SCH (17:29)
[2020-01-31] MEDS: IPRATROPIUM/ALBUTEROL 0.5-2.5 MG/3 ML AMPUL NEB SCH (20:50)
[2020-01-31] MEDS: ATORVASTATIN CALCIUM 40 MG TABLET PO SCH (21:36)
[2020-02-01] MEDS: NORMAL SALINE 1000 ML 1,000 ML IV PRN ×2 (01:33→07:48)
[2020-02-01] MEDS: PREGABALIN 50 MG CAPSULE PO SCH (05:53)
[2020-02-01] MEDS: IPRATROPIUM/ALBUTEROL 0.5-2.5 MG/3 ML AMPUL NEB SCH (07:56)
[2020-02-01] MEDS: ENOXAPARIN SODIUM INJ 40 MG/0.4 ML DISP.SYRIN SUBCUT SCH (09:37)
[2020-02-01] MEDS: MODAFINIL 100 MG TABLET PO SCH (09:38)
[2020-02-01] MEDS: FLUOXETINE HCL 20 MG CAPSULE PO SCH (09:39)
[2020-02-01] MEDS: FOLIC ACID 1 MG TABLET PO SCH (09:39)
[2020-02-01] MEDS: PREDNISONE 20 MG TABLET PO SCH (09:39)
[2020-02-01] MEDS: QUETIAPINE FUMARATE 25 MG TABLET PO SCH (09:39)
[2020-02-01] MEDS: FAMOTIDINE 20 MG TABLET PO SCH (09:39)
[2020-02-01] MEDS: DOCUSATE SODIUM 100 MG CAPSULE PO SCH (09:39)
[2020-02-01] MEDS: HYDROCHLOROTHIAZIDE 12.5 MG TABLET PO SCH (09:40)
[2020-02-01] MEDS: HYDROXYCHLOROQUINE SULFATE 200 MG TABLET PO SCH (09:40)
[2020-02-01] MEDS: FLUTICASONE/VILANTEROL 200-25 MCG/DOSE IH SCH (09:40)
[2020-02-01] MEDS: FLUTICASONE NASAL SPRAY 50 MCG/SPRY 120 SPRAY/16 GM NASL SCH (09:40)
[2020-02-01] MEDS: LISINOPRIL 10 MG TABLET PO SCH (09:41)
[2020-02-01 11:35] VITALS: BP 131/87
--- NOTE | 2020-02-03 14:58 | PDOC DISCHARGE SUMMARY ---
Impression - Admit/DC Date/PCP Admission Date/Primary Care Provider: 01/30/20 14:02 DUGLAS WOMACK MD Discharge Date: 02/01/20 - Discharge Diagnosis (1) SIRS (systemic inflammatory response syndrome) Is this a current diagnosis for this admission?: Yes (2) CVA (cerebral vascular accident) Is this a current diagnosis for this admission?: Yes (3) Dysphagia Is this a current diagnosis for this admission?: Yes (4) UTI (urinary tract infection) Is this a current diagnosis for this admission?: Yes (5) COPD (chronic obstructive pulmonary disease) Is this a current diagnosis for this admission?: Yes - Additional Information Discharge Diet: As Tolerated Discharge Activity: Activity As Tolerated, Balance Activity w/Rest Referrals: DUGLAS WOMACK MD [Primary Care Provider] - Follow up as needed Prescriptions: Cephalexin Monohydrate [Keflex 500 mg Capsule] 500 mg PO TID 3 Days #9 capsule Home Medications: Atorvastatin Calcium [Lipitor 40 mg Tablet] 40 mg PO QHS 12/01/19 Cetirizine HCl [Zyrtec] 10 mg PO DAILY 12/01/19 Docusate Sodium 50 mg PO BID 12/01/19 Fluoxetine HCl [Prozac 20 mg Capsule] 20 mg PO DAILY 12/01/19 Fluticasone Propionate [Flonase Nasal Peck 50 Mcg/Peck 16 gm] 2 sprays NASL DAILY 12/01/19 Folic Acid 1 mg PO DAILY 12/01/19 Lansoprazole [Prevacid 15 mg Odt Tablet] 15 mg PO Q12 12/01/19 Linaclotide [Linzess 145 Mcg Capsule] 145 mcg PO QAM 12/01/19 Meloxicam [Mobic] 15 mg PO DAILY 12/01/19 Modafinil [Provigil 100 mg Tablet] 100 mg PO BID 12/01/19 [place]-3 160mg/0.5ml 25 ml GT BID 12/01/19 Quetiapine Fumarate [Seroquel] 25 mg PO QAM 12/01/19 Scopolamine Hydrobromide [Transderm-Scop 1.5 mg Patch] 1 patch TD Q3DAYS 12/01/19 Sennosides [Senna] 17.2 mg PO QHS 12/01/19 Tramadol HCl [Ultram 50 mg Tablet] 50 mg PO Q6HP PRN 12/01/19 Lactose-Reduced Food/Fiber [Jevity 1.5 Mailk Liquid] 45 ml PEG CONTINUOUS #1 each 12/06/19 Cephalexin Monohydrate [Keflex 500 mg Capsule] 500 mg PO Q12 01/30/20 Hydroxychloroquine Sulfate [Plaquenil 200 mg Tablet] 200 mg PO BID 01/30/20 Lisinopril/Hydrochlorothiazide [Lisinopril-Hctz 20-12.5 mg Tab] 1 each PO DAILY 01/30/20 Pregabalin [Lyrica 50 mg Capsule] 50 mg PO TID 01/30/20 Cephalexin Monohydrate [Keflex 500 mg Capsule] 500 mg PO TID 3 Days #9 capsule 02/01/20 History of Present Illiness History of Present Illness: PACO KITCHEN is a 49 year old female status left MCA with right upper extremity deficit and dysarthria, status post PEG placement for persistent dysphagia secondary to CVA presenting to ED complaining of generalized weakness, fever, and also was told by his home home nurse that her PEG tube was clogged and was expressing purulent material. She was advised to to ED and get it evaluated. Otherwise patient denies any shortness of breath, nausea, vomiting, diarrhea, constipation, headache, any new focal neurological symptoms, stating that she is able to eat properly and has passed her swallow eval and outpatient, and would like for her PEG tube to be removed. In ED she was noted to be hypotensive, febrile and UA positive for leukocyte esterase. Start on volume resuscitation and IV antibiotics and hospital was consulted for admission. Hospital Course Hospital Course: (1) SIRS (systemic inflammatory response syndrome) Resolved. Afebrile. WBC WNL. Vitals WNL. Likely source urine. Peesented with tachycardia, hypotension, fever. WBC WNL. UA positive for leukocyte esterase. Was started on volume resuscitation guided by volume status, trend lactic acid, monitor vitals, broad-spectrum empiric IV antibiotics. Urine and blood culture remain negative. Received 3 days of IV antibiotics inpatient. Was discharged on Keflex p.o. 500 mg 3 times daily for another 3 days. (2) CVA (cerebral vascular accident) History of left MCA stroke. Persistent right upper extremity weakness and dysarthria. Monitored vitals. Denies any new focal neurological symptoms. Continued PT OT. Resumed antiplatelets, statins. Discharge to resume home health, PT and OT. Advised to resume home meds upon discharge. (3) Dysphagia Secondary to CVA. Patient had failed modified barium swallow and previous hospitalization. Stating that she is able to eat now and recently had a modified barium swallow and outpatient which he passed. Patient would like for PEG tube to be removed. Speech therapy was consulted, I was notified that patient had been evaluated by speech therapy as outpatient a week prior to admission and had passed her speech evaluation and it was okay for her to take p.o. intake. Surgery was consulted and PEG tube was removed without any complication. Patient was tolerating her p.o. intake with no problem and having normal bowel. (4) UTI (urinary tract infection) Likely due to gram-negative rods including E. coli. Started on empiric IV antibiotic. Switched to p.o. Keflex upon discharge. Urine and blood cultures remain negative. (5) COPD (chronic obstructive pulmonary disease) History of non-oxygen dependent COPD. Former smoker. Not hypoxia or wheezing on physical examination. Wast started DuoNebs, LABA, ICS, LABA. Flutter valve and incentive parameter. Advised to resume home meds upon discharge. Physical Exam Vital Signs: Temp Pulse Resp BP Pulse Ox 98.3 F 85 16 131/87 H 100 02/01/20 11:32 02/01/20 11:32 02/01/20 11:32 02/01/20 11:32 02/01/20 11:32 Intake & Output 02/02/20 02/03/20 02/04/20 06:59 06:59 06:59 Intake Total 938 Balance 938 General appearance: PRESENT: no acute distress, well-developed, well-nourished Eye exam: PRESENT: conjunctiva pink, EOMI, PERRLA. ABSENT: scleral icterus Neck exam: PRESENT: tracheostomy. ABSENT: carotid bruit, JVD, lymphadenopathy, thyromegaly Respiratory exam: PRESENT: clear to auscultation latesha. ABSENT: rales, rhonchi, wheezes Cardiovascular exam: PRESENT: RRR. ABSENT: diastolic murmur, rubs, systolic murmur GI/Abdominal exam: PRESENT: normal bowel sounds, soft, other - PEG tube removed, wound looks clean, no discharge no tenderness.. ABSENT: distended, guarding, mass, organolmegaly, rebound, tenderness Neurological exam: PRESENT: alert, awake, oriented to person, oriented to place, oriented to time, oriented to situation, CN II-XII grossly intact. ABSENT: motor sensory deficit Results Laboratory Results: WBC 5.4 10^3/uL (4.0-10.5) 01/31/20 04:04 RBC 3.45 10^6/uL (3.72-5.28) L 01/31/20 04:04 Hgb 10.0 g/dL (12.0-15.5) L D 01/31/20 04:04 Hct 29.4 % (36.0-47.0) L 01/31/20 04:04 MCV 85 fl (80-97) 01/31/20 04:04 MCH 28.9 pg (27.0-33.4) 01/31/20 04:04 MCHC 33.9 g/dL (32.0-36.0) 01/31/20 04:04 RDW 15.6 % (11.5-14.0) H 01/31/20 04:04 Plt Count 260 10^3/uL (150-450) 01/31/20 04:04 Lymph % (Auto) Not Reportable 01/31/20 04:04 [place] % (Auto) Not Reportable 01/31/20 04:04 Eos % (Auto) Not Reportable 01/31/20 04:04 Baso % (Auto) Not Reportable 01/31/20 04:04 Absolute Neuts (auto) Not Reportable 01/31/20 04:04 Absolute Lymphs (auto) Not Reportable 01/31/20 04:04 Absolute Monos (auto) Not Reportable 01/31/20 04:04 Absolute Eos (auto) Not Reportable 01/31/20 04:04 Absolute Basos (auto) Not Reportable 01/31/20 04:04 Total Counted 100 01/31/20 04:04 Seg Neutrophils % Not Reportable 01/31/20 04:04 Seg Neuts % (Manual) 58 % (42-78) 01/31/20 04:04 Band Neutrophils % 5 % (3-5) 01/31/20 04:04 Lymphocytes % (Manual) 26 % (13-45) 01/31/20 04:04 Monocytes % (Manual) 10 % (3-13) 01/31/20 04:04 Eosinophils % (Manual) 1 % (0-6) 01/31/20 04:04 Basophils % (Manual) 0 % (0-2) 01/31/20 04:04 Abs Neuts (Manual) 3.4 10^3/uL (1.7-8.2) 01/31/20 04:04 Abs Lymphs (Manual) 1.4 10^3/uL (0.5-4.7) 01/31/20 04:04 Abs Monocytes (Manual) 0.5 10^3/uL (0.1-1.4) 01/31/20 04:04 Absolute Eos (Manual) 0.1 10^3/uL (0.0-0.6) 01/31/20 04:04 Abs Basophils (Manual) 0.0 10^3/uL (0.0-0.2) 01/31/20 04:04 Platelet Comment ADEQUATE 01/31/20 04:04 Anisocytosis SLIGHT 01/31/20 04:04 Ovalocytes 1+ 01/31/20 04:04 PT 14.6 SEC (11.4-15.4) 01/30/20 12:05 INR 1.13 01/30/20 12:05 VBG pH 7.40 (7.30-7.42) 01/30/20 12:05 VBG pCO2 41.7 mmHg (35-63) 01/30/20 12:05 VBG HCO3 25.5 mmol/L (20-32) 01/30/20 12:05 VBG Base Excess 0.6 mmol/L 01/30/20 12:05 Sodium 135.5 mmol/L (137-145) L 01/31/20 04:04 Potassium 3.5 mmol/L (3.6-5.0) L 01/31/20 04:04 Chloride 105 mmol/L (98-107) 01/31/20 04:04 Carbon Dioxide 26 mmol/L (22-30) 01/31/20 04:04 Anion Gap 5 (5-19) 01/31/20 04:04 BUN 7 mg/dL (7-20) 01/31/20 04:04 Creatinine 0.48 mg/dL (0.52-1.25) L 01/31/20 04:04 Est GFR ( Amer) > 60 (>60) 01/31/20 04:04 Est GFR (MDRD) Non-Af > 60 (>60) 01/31/20 04:04 Glucose 79 mg/dL (75-110) 01/31/20 04:04 Lactic Acid 0.9 mmol/L (0.7-2.1) 01/30/20 23:05 Calcium 7.8 mg/dL (8.4-10.2) L 01/31/20 04:04 Magnesium 1.6 mg/dL (1.6-2.3) 01/31/20 04:04 Total Bilirubin 0.5 mg/dL (0.2-1.3) 01/31/20 04:04 Direct Bilirubin 0.0 mg/dL (0.0-0.4) 01/31/20 04:04 Neonat Total Bilirubin Not Reportable 01/31/20 04:04 Neonat Direct Bilirubin Not Reportable 01/31/20 04:04 Neonat Indirect Bili Not Reportable 01/31/20 04:04 AST 22 U/L (14-36) 01/31/20 04:04 ALT 13 U/L (<35) 01/31/20 04:04 Alkaline Phosphatase 85 U/L (38-126) 01/31/20 04:04 Total Protein 5.6 g/dL (6.3-8.2) L 01/31/20 04:04 Albumin 2.5 g/dL (3.5-5.0) L 01/31/20 04:04 Urine Color YELLOW 01/30/20 12:14 Urine Appearance CLOUDY 01/30/20 12:14 Urine pH 7.0 (5.0-9.0) 01/30/20 12:14 Ur Specific [place] 1.009 01/30/20 12:14 Urine Protein NEGATIVE mg/dL (NEGATIVE) 01/30/20 12:14 Urine Glucose (UA) NEGATIVE mg/dL (NEGATIVE) 01/30/20 12:14 Urine Ketones NEGATIVE mg/dL (NEGATIVE) 01/30/20 12:14 Urine Blood NEGATIVE (NEGATIVE) 01/30/20 12:14 Urine Nitrite NEGATIVE (NEGATIVE) 01/30/20 12:14 Urine Bilirubin NEGATIVE (NEGATIVE) 01/30/20 12:14 Urine Urobilinogen 4.0 mg/dL (<2.0) H 01/30/20 12:14 Ur Leukocyte Esterase LARGE (NEGATIVE) H 01/30/20 12:14 Urine WBC (Auto) 147 /HPF 01/30/20 12:14 Urine RBC (Auto) 7 /HPF 01/30/20 12:14 Urine Bacteria (Auto) 1+ /HPF 01/30/20 12:14 Squamous Epi Cells Auto 6 /HPF 01/30/20 12:14 Urine Mucus (Auto) RARE /LPF 01/30/20 12:14 Urine Ascorbic Acid NEGATIVE (NEGATIVE) 01/30/20 12:14 SARS-CoV-2 (PCR) NEGATIVE (NEGATIVE) 01/30/20 13:44 Impressions: Chest X-Ray 01/30/20 13:02 IMPRESSION: No evidence of acute cardiopulmonary abnormality. Tracheostomy sheath projects in the midline over the tracheal air shadow. Head CT 01/31/20 00:00 IMPRESSION: No acute intracranial abnormality. EVIDENCE OF ACUTE STROKE: NO. Stroke Is this a Stroke Patient?: No Acute Heart Failure - Is this a Heart Failure Patient?: No
== END 2020-02-01 12:00 | disposition home health service (06) | DRG 690 ==
LOC: ER 11:24 → EH 14:02 → 5 17:07
PROVIDERS: ADMIT Internal Medicine; ATTEND Internal Medicine
PROC: 0DP6XUZ Removal of Feeding Device from Stomach, External Approach (ICD-10-PCS; principal; 2020-01-31)
DX: N39.0 Urinary tract infection, site not specified (principal); J44.1 Chronic obstructive pulmonary disease with (acute) exacerbation; I69.354 Hemiplegia and hemiparesis following cerebral infarction affecting left non-dominant side; Z43.1 Encounter for attention to gastrostomy; R13.19 Other dysphagia; I10 Essential (primary) hypertension; I69.322 Dysarthria following cerebral infarction; I69.391 Dysphagia following cerebral infarction; Z93.0 Tracheostomy status; Z03.818 Encounter for observation for suspected exposure to other biological agents ruled out
CPT/HCPCS: 36415; 70450; 71045; 80053; 81001; 82803; 83605; 83735; 85025; 85610; 87040; 87635; 93005; 93010; 94640; 96360; 96372; 99291; C9803; J0692; J0696; J1650; J3490; J7030; J7120; J7512

== ENCOUNTER 2020-03-20 13:08 | Day surgery (SDC) | payer MEDICAID ==
[~2020-03-20 13:08] MED LIST: LACTATED RINGERS 1000 ML IV PRN; LIDOCAINE 0.5% INJ-PF (5 MG/ML) 50 ML SDV SUBCUT PRN
[2020-03-20] MEDS ORDERED: NALOXONE HCL INJ/PF 0.4 MG/1 ML SDV ONE (14:32)
[2020-03-20] MEDS ORDERED: DIPHENHYDRAMINE HCL 50 MG/ML VIAL ONE (14:32)
[2020-03-20] MEDS ORDERED: ONDANSETRON HCL INJ/PF 4 MG/2 ML SDV ONE (14:32)
[2020-03-20] MEDS ORDERED: FLUMAZENIL INJ 0.5 MG/5 ML VIAL ONE (14:33)
[2020-03-20] MEDS ORDERED: GLUCAGON,HUMAN RECOMB 1 MG INJ ONE (14:33)
[2020-03-20] MEDS ORDERED: EPINEPHRINE INJ 1 MG/10 ML DISP.SYRIN ONE (14:33)
[2020-03-20] MEDS ORDERED: FENTANYL CITRATE INJ/PF 100 MCG/2 ML AMPUL ONE (14:33)
[2020-03-20] MEDS: MIDAZOLAM 2 MG/2 ML INJ ONE ×2 (14:58→15:05)
--- NOTE | 2020-03-20 15:29 | Operative Report ---
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 Gastric antral ulcer 2. Gastrostomy opening Surgery: Esophagogastroduodenoscopy with biopsy and Endo Clip placement Medications: Versed 3mg Fentanyl 50mcg IV push Tissue removed: Antral and gastric body biopsy for pathology Procedure: After informed consent obtained from patient, the throat was sprayed with Hurricane and conscious sedation was achieved. The upper endoscope was inserted into the esophagus under direct vision and advanced into the stomach. The duodenum was entered and examined to the second part. Endoscope was then slowly pulled out of the patient as the mucosa was examined into details. Patient tolerated procedure well. Findings Esophagus: Normal Antrum: A 1 cm ulcer was noted in the gastric antrum along the incisura. Body: 2 depressions were noted within 1.5cm of each other one of which is the leaking gastrostomy site. It was difficult to grasp the surrounding mucosa with the Endo Clip but I managed to place 3 clips over the 2 areas. Fundus: Normal Duodenum first part: Normal Duodenum second part: Normal Plan: Await pathology. Continue to eat smaller more frequent meals. Increase Prevacid from 15 to 30 mg twice a day and repeat EGD in 2 months. Use Mobic as needed instead of every day if possible OPERATION: .
--- NOTE | 2020-03-20 15:34 | Discharge Summary ---
Discharge Summary (SDC) - Discharge Final Diagnosis: Gastric ulcer. Leaky old gastrostomy site Date of Surgery: 03/20/20 Condition: Good Forms: EU Anesthesia D/C Instructions, Discharge POC-Surgical Service Treatment or Instructions: NO DRIVING ADVANCE DIET TOLERATED. Eat smaller more frequent meals instead of eating once a day. Increase Prevacid to 30 mg twice a day. Prescription will be sent Repeat EGD in 2 months to confirm healing of ulcer. AVOID FATTY, GREASY, OR SPICY FOODS MAKE FOLLOW-UP APPOINTMENT WITH DR PIERRE Referrals: MILENA PIERRE MD [ACTIVE STAFF] - Discharge Diet: Other (Comments) - Eat smaller more frequent meals. Eat three smaller meals instead of once a day. Respiratory Treatments at Home: Deep Breathing/Coughing Discharge Activity: Activity As Tolerated, No Driving Home Care Assistance: None Needed Report the Following to Your Physician Immediately: Shortness of Breath, Nausea, Vomiting, Increase in Pain, Fever over 101 Degrees, Unusual Bleeding, IV Site Infection Signs
[2020-03-20 16:15] VITALS: BP 141/76
== END 2020-03-20 16:14 | disposition home or self-care (01) ==
LOC: END 13:08
PROVIDERS: ATTEND Internal Medicine Gastroenterology
DX: K29.70 Gastritis, unspecified, without bleeding (principal); K25.9 Gastric ulcer, unspecified as acute or chronic, without hemorrhage or perforation; K94.29 Other complications of gastrostomy; B96.81 Helicobacter pylori [H. pylori] as the cause of diseases classified elsewhere; Z03.818 Encounter for observation for suspected exposure to other biological agents ruled out; I10 Essential (primary) hypertension; M32.9 Systemic lupus erythematosus, unspecified; E78.00 Pure hypercholesterolemia, unspecified; Z86.73 Personal history of transient ischemic attack (TIA), and cerebral infarction without residual deficits; Z87.891 Personal history of nicotine dependence
CPT/HCPCS: 43239; 87635; 88342 ×2; 88305 ×2; J2250; J3010; C9803; J0171; J1200; J1610; J2310; J2405; J3490